=== PATIENT | female | born 1950 | race Caucasian/White ===

== ENCOUNTER 2017-06-05 04:53 | Emergency (ER) | payer MEDICARE, OTHER ==
[2017-06-05] MEDS ORDERED: Ketorolac 30 MG/ML SDV IVPUSH ONE (05:36)
[2017-06-05 06:25] LABS: CHLORIDE,CL 109 mmol/L (98-110); SODIUM,NA 143 mmol/L (136-146)
--- NOTE | 2017-06-05 06:38 | EDM.PDOC ---
ED HPI GENERAL MEDICAL PROBLEM - General Chief Complaint: General Stated Complaint: PAIN IN PELVIS Time Seen by Provider: 06/05/17 06:30 Source of Information: Reports: Patient - History of Present Illness INITIAL COMMENTS - FREE TEXT/NARRATIVE: HISTORY AND PHYSICAL: History of present illness: [ Patient presents with complaint of right flank to low back pain she rates 7 out of 10 radiating to the vaginal floor, she has a history of congestive pelvis syndrome, she states pain is different today. She has had some right lower extremity numbness over the last week along with over the last 24 hours developing the low back/flank pain radiating to the vagina. No fever nausea vomiting chills sweats no chest pain shortness breath headache dizziness or palpitation no bowel or urine symptoms No footdrop saddle anesthesia ] Review of systems: As per history of present illness and below otherwise all systems reviewed and negative. Past medical history: As per history of present illness and as reviewed below otherwise noncontributory. Surgical history: As per history of present illness and as reviewed below otherwise noncontributory. Social history: No reported history of drug or alcohol abuse. Family history: As per history of present illness and as reviewed below otherwise noncontributory. Physical exam: HEENT: Atraumatic, normocephalic, pupils reactive, negative for conjunctival pallor or scleral icterus, mucous membranes moist, throat clear, neck supple, nontender, trachea midline. Lungs: Clear to auscultation, breath sounds equal bilaterally, chest nontender. Heart: S1S2, regular, negative for clicks, rubs, or JVD. Abdomen: Soft, nondistended, nontender. Negative for masses or hepatosplenomegaly. Negative for costovertebral tenderness. Pelvis: Stable nontender. 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: Deferred. Rectal: Deferred. Extremities: Atraumatic, negative for cords or calf pain. Neurovascular unremarkable. Neuro: Awake, alert, oriented. Cranial nerves II through XII unremarkable. Cerebellum unremarkable. Motor and sensory unremarkable throughout. Exam nonfocal. No footdrop or saddle anesthesia Diagnostics: []Lab as below CT abdomen pelvis with and without contrast Therapeutics: []Liter normal saline bolus Zofran 8 mg IV Toradol 30 mg IV--some improvement with Toradol to 3 out of 10 Patient will be endorsed to Dr. Fallon to follow lab and CT and redirect/ disposition Impression: []Flank and back pain radiating to the pelvic floor History of congestive pelvis syndrome Definitive disposition and diagnosis as appropriate pending reevaluation and review of above. - Related Data Allergies Allergy/AdvReac Type Severity Reaction Status Date / Time levofloxacin [From Levaquin] Allergy unknown Verified 06/05/17 05:13 Home Meds: Home Meds Metoprolol Succinate [Toprol XL] 25 mg PO DAILY 07/25/16 [History] Erythromycin Base [Erythromycin 0.5% Ophth Oint] 1 drop TOP DAILY 08/13/16 [ History] Past Medical History HEENT History: Reports: Impaired Vision Other HEENT History: glasses Cardiovascular History: Reports: Other (See Below) Other Cardiovascular History: PSVT Gastrointestinal History: Reports: Chronic Constipation 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 History: Reports: Other (See Below) Other 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 History: Pelvis 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: - Infectious Disease History Infectious Disease History: Reports: Chicken Pox, Measles, Mumps - Past Surgical History Cardiovascular Surgical History: Reports: Other (See Below) Social & Family History - Family History Family Medical History: Noncontributory HEENT: Reports: None Cardiac: Reports: High Cholesterol Respiratory: Reports: None GI: Reports: None : Reports: None OBGYN: Reports: None Musculoskeletal: Reports: None Neurological: Reports: None Psychiatric: Reports: None Endocrine/Metabolic: Reports: Diabetes, type II Hematologic: Reports: None Immunologic: Reports: None Dermatologic: Reports: None Oncologic: Reports: None - Tobacco Use Smoking Status *Q: Never Smoker Second Hand Smoke Exposure: No - Caffeine Use Caffeine Use: Reports: None - Alcohol Use Days Per Week of Alcohol Use: 0 - Recreational Drug Use Recreational Drug Use: No ED ROS GENERAL - Review of Systems Review Of Systems: ROS reveals no pertinent complaints other than HPI. ED EXAM, GENERAL - Physical Exam Exam: See Below Course - Vital Signs Last Recorded V/S: Last Vital Signs Temp 98.4 F 06/05/17 05:23 Pulse 83 06/05/17 05:23 Resp 18 06/05/17 05:23 BP 106/70 06/05/17 05:23 Pulse Ox 100 06/05/17 05:23 - Orders/Labs/Meds Orders: Active Orders 24 hr Category Date Time Status Abdomen Pelvis w wo Cont [CT] Stat Exams 06/05/17 06:21 Ordered Labs: Laboratory Tests 06/05/17 06/05/17 06/05/17 Range/Units 05:30 05:30 05:30 WBC 5.60 (4.0-11.0) K/uL RBC 4.09 L (4.30-5.90) M/uL Hgb 12.6 (12.0-16.0) g/dL Hct 37.9 (36.0-46.0) % MCV 92.7 (80.0-98.0) fL MCH 30.8 (27.0-32.0) pg MCHC 33.2 (31.0-37.0) g/dL RDW Std Deviation 44.2 (28.0-62.0) fl RDW Coeff of Arianne 13 (11.0-15.0) % Plt Count 185 (150-400) K/uL MPV 10.10 (7.40-12.00) fL Neut % (Auto) 63.6 (48.0-80.0) % Lymph % (Auto) 28.8 (16.0-40.0) % King % (Auto) 6.3 (0.0-15.0) % Eos % (Auto) 0.9 (0.0-7.0) % Baso % (Auto) 0.4 (0.0-1.5) % Neut # (Auto) 3.6 (1.4-5.7) K/uL Lymph # (Auto) 1.6 (0.6-2.4) K/uL King # (Auto) 0.4 (0.0-0.8) K/uL Eos # (Auto) 0.1 (0.0-0.7) K/uL Baso # (Auto) 0.0 (0.0-0.1) K/uL Nucleated RBC % 0.0 /100WBC Nucleated RBCs # 0 K/uL Sodium 143 (136-146) mmol/L Potassium 3.8 (3.5-5.1) mmol/L Chloride 109 (98-110) mmol/L Carbon Dioxide 26 (21-31) mmol/L BUN 19 (6.0-23.0) mg/dL Creatinine 0.8 (0.6-1.5) mg/dL Est Cr Clr Drug Dosing TNP Estimated GFR (MDRD) > 60.0 ml/min Glucose 89 (60-110) mg/dL Calcium 9.4 (8.8-10.8) mg/dL Total Bilirubin 0.8 (0.1-1.5) mg/dL AST 17 (5-40) IU/L ALT 19 (8-54) IU/L Alkaline Phosphatase 70 (40-150) Total Protein 6.5 (6.0-8.0) g/dL Albumin 3.9 (3.4-4.8) g/dL Globulin 2.6 (2.0-3.5) g/dL Albumin/Globulin Ratio 1.5 (1.3-2.8) Urine Color YELLOW Urine Appearance CLEAR Urine pH 6.5 (5.0-8.0) Ur Specific Winifred 1.010 (1.001-1.035) Urine Protein NEGATIVE (NEGATIVE) mg/dL Urine Glucose (UA) NEGATIVE (NEGATIVE) mg/dL Urine Ketones NEGATIVE (NEGATIVE) mg/dL Urine Occult Blood NEGATIVE (NEGATIVE) Urine Nitrite NEGATIVE (NEGATIVE) Urine Bilirubin NEGATIVE (NEGATIVE) Urine Urobilinogen 0.2 (<2.0) EU/dL Ur Leukocyte Esterase NEGATIVE (NEGATIVE) Urine RBC NONE SEEN (0-2/HPF) Urine WBC NONE SEEN (0-5/HPF) Ur Epithelial Cells NOT SEEN (NONE-FEW) Urine Bacteria RARE (NEGATIVE) Meds: Medications Discontinued Medications Generic Name Dose Route Start Last Admin Trade Name Freq PRN Reason Stop Dose Admin Ketorolac Tromethamine 30 mg 06/05/17 05:36 06/05/17 05:55 Toradol IVPUSH 06/05/17 05:37 30 mg ONETIME ONE Administration Departure - Departure Time of Disposition: 06:38 Disposition: Still A Patient 30 Condition: Good Clinical Impression: Flank pain - Discharge Information Referrals: Sim Whitlock MD [Primary Care Provider] - - My Orders Last 24 Hours: My Active Orders 06/05/17 06:21 Abdomen Pelvis w wo Cont [CT] Stat - Assessment/Plan Last 24 Hours: My Active Orders 06/05/17 06:21 Abdomen Pelvis w wo Cont [CT] Stat
[2017-06-05] MEDS ORDERED: Iopamidol 755 MG/ML 500 ML Multipack Bottle IVPUSH STA (07:22)
[2017-06-05 08:47] VITALS: BP 106/62
--- NOTE | 2017-06-05 17:19 | CT ---
EXAM DATE: 06/05/17 PATIENT'S AGE: 66 Patient: PRISCILLA PARK Facility: [place], [place] Site . Site : 1950 Study: CT Abdomen/Pelvis W/ and W/O Cont [id number] 7:18:56 AM Ordering Physician: Iza Colvin Final Report: INDICATION: Bilateral lower abdomen and pelvic pain. TECHNIQUE: CT abdomen and pelvis acquired without and with 100 cc Isovue 370 IV contrast. COMPARISON: May 28, 2014. FINDINGS: LOWER CHEST: Unremarkable. LIVER: Stable 1.3 cm circumscribed low attenuation lesion in the superior right lobe on image 22. Remainder of the liver is unremarkable. GALLBLADDER AND BILE DUCTS: Status post cholecystectomy. No biliary dilatation. PANCREAS: Unremarkable. No mass or inflammation. SPLEEN: Unremarkable. Normal in size. No masses. ADRENAL GLANDS: Unremarkable. No nodules. KIDNEYS: Single small nonobstructing stone is in the right kidney. No hydronephrosis. Kidneys are otherwise normal. GI TRACT: There is mild stool retention throughout the colon. Normal in caliber. No sign of mass or inflammation. Normal appendix. VASCULATURE: Unremarkable. LYMPH NODES: No lymphadenopathy. OMENTUM/PERITONEUM/ABDOMINAL WALL: Unremarkable. No sign of mass or infiltration. No free air or significant free fluid. PELVIS: Unremarkable. BONES: Unremarkable for age. IMPRESSION: Mild constipation pattern. No other acute or specific finding to explain lower abdomen or pelvic pain. No significant changes from the prior exam. Dictated by Teddy Elizondo MD @ 06/05/2017 7:41:52 AM Dictated by: Teddy Elizondo MD @ 06/05/2017 07:42:00 (Electronic Signature) Report Signed by Proxy. [facility] SHOREChuy
== END 2017-06-05 08:16 | disposition still patient (30) ==
LOC: MW.ED 04:53
DX: R10.9 Unspecified abdominal pain (principal); K59.00 Constipation, unspecified; K76.9 Liver disease, unspecified; Z88.1 Allergy status to other antibiotic agents
CPT/HCPCS: 74178; 80053; 81001; 85025; 96374; 99284; J1885; Q9967

== ENCOUNTER 2017-08-17 14:11 | Emergency (ER) | payer MEDICARE, OTHER ==
--- NOTE | 2017-08-17 15:01 | EDM.PDOC ---
ED HPI GENERAL MEDICAL PROBLEM - General Chief Complaint: Upper Extremity Injury/Pain Stated Complaint: FALL/ L HAND PAIN/ HIT HEAD Time Seen by Provider: 08/17/17 15:01 Source of Information: Reports: Patient - History of Present Illness INITIAL COMMENTS - FREE TEXT/NARRATIVE: HISTORY AND PHYSICAL: History of present illness: [Patient slipped and fell striking her head on concrete denies loss of consciousness, there is some pooled blood secondary to a laceration just above her left brow line 2 cm linear lack. She complains of 8 out of 10 left wrist pain, wrist is swollen no open lesion No fever nausea vomiting chills sweats no chest pain shortness breath dizziness or palpitation no bowel or urine symptoms of headache ] Review of systems: As per history of present illness and below otherwise all systems reviewed and negative. Past medical history: As per history of present illness and as reviewed below otherwise noncontributory. Surgical history: As per history of present illness and as reviewed below otherwise noncontributory. Social history: No reported history of drug or alcohol abuse. Family history: As per history of present illness and as reviewed below otherwise noncontributory. Physical exam: HEENT: Atraumatic, normocephalic, pupils reactive, negative for conjunctival pallor or scleral icterus, mucous membranes moist, throat clear, neck supple, nontender, trachea midline. Lungs: Clear to auscultation, breath sounds equal bilaterally, chest nontender. Heart: S1S2, regular, negative for clicks, rubs, or JVD. Abdomen: Soft, nondistended, nontender. Negative for masses or hepatosplenomegaly. Negative for costovertebral tenderness. Pelvis: Stable nontender. 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: Deferred. Rectal: Deferred. Extremities: Atraumatic, negative for cords or calf pain. Neurovascular unremarkable. Left upper extremity shoulder and elbow on affected wrist moderate swelling, entire limb neurovascularly intact Neuro: Awake, alert, oriented. Cranial nerves II through XII unremarkable. Cerebellum unremarkable. Motor and sensory unremarkable throughout. Exam nonfocal. Diagnostics: [Head CT no contrast Left wrist complete ] Therapeutics: [Patient declines pain medicine Lidocaine Tetanus status is updated Wound cleansed and explored Standard wound care instructions #3 5-0 Prolene sutures interrupted no complication no complaint ] Standard wound care instructions Sutures out in 5-7 days Follow-up with orthopedist call to arrange for appropriate follow-up tomorrow Augmentin 500 per 125 #20 no refill Tylenol 3 #30 Rest ice Splint applied by nursing Impression: Distal radial fracture on the left Ulnar styloid fracture on left [Left wrist pain Contusion left brow 2 cm linear laceration left brow] She chipped the lateral border of her left central incisor Fight bite lesion no sutures required Definitive disposition and diagnosis as appropriate pending reevaluation and review of above. Left Wrist Pain Score (Numeric/FACES): 5 - Related Data Allergies Allergy/AdvReac Type Severity Reaction Status Date / Time levofloxacin [From Levaquin] Allergy unknown Verified 06/05/17 05:13 Home Meds: Home Meds Metoprolol Succinate [Toprol XL] 25 mg PO DAILY 07/25/16 [History] Erythromycin Base [Erythromycin 0.5% Ophth Oint] 1 drop TOP DAILY 08/13/16 [ History] Past Medical History HEENT History: Reports: Impaired Vision Other HEENT History: glasses Cardiovascular History: Reports: Other (See Below) Other Cardiovascular History: PSVT Gastrointestinal History: Reports: Chronic Constipation 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 History: Reports: Other (See Below) 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: - Infectious Disease History Infectious Disease History: Reports: Chicken Pox, Measles, Mumps - Past Surgical History Cardiovascular Surgical History: Reports: Other (See Below) Social & Family History - Family History Family Medical History: Noncontributory HEENT: Reports: None Cardiac: Reports: High Cholesterol Respiratory: Reports: None GI: Reports: None : Reports: None OBGYN: Reports: None Musculoskeletal: Reports: None Neurological: Reports: None Psychiatric: Reports: None Endocrine/Metabolic: Reports: Diabetes, type II Hematologic: Reports: None Immunologic: Reports: None Dermatologic: Reports: None Oncologic: Reports: None - Tobacco Use Smoking Status *Q: Never Smoker Second Hand Smoke Exposure: No - Caffeine Use Caffeine Use: Reports: None - Alcohol Use Days Per Week of Alcohol Use: 0 - Recreational Drug Use Recreational Drug Use: No Review of Systems - Review of Systems Review Of Systems: See Below ED EXAM, GENERAL - Physical Exam Exam: See Below Course - Vital Signs Last Recorded V/S: Last Vital Signs Temp 98.0 F 08/17/17 14:55 Pulse 83 08/17/17 14:55 Resp 18 08/17/17 14:55 BP 125/66 08/17/17 14:55 Pulse Ox 99 08/17/17 14:55 - Orders/Labs/Meds Orders: Active Orders 24 hr Category Date Time Status Vaccines to be Administered [RC] PER UNIT ROUTINE Care 08/17/17 15:05 Active Acetaminophen/Codeine [Tylenol with Codeine No.3 300MG/ Med 08/17/17 16:28 Stat 30MG] 2 tab PO NOW STA Meds: Medications Discontinued Medications Generic Name Dose Route Start Last Admin Trade Name Montez PRN Reason Stop Dose Admin Diphtheria/Tetanus/Acell Pertussis 0.5 ml 08/17/17 15:05 Adacel IM 08/17/17 15:06 .ONCE ONE Lidocaine HCl 20 ml 08/17/17 15:05 Xylocaine 1% INJECT 08/17/17 15:06 ONETIME ONE Departure - Departure Time of Disposition: 16:25 Disposition: Home, Self-Care 01 Condition: Good Clinical Impression: Laceration, Distal radius fracture, left, Fracture of ulnar styloid, Contusion - Discharge Information Referrals: Sim Whitlock MD [Primary Care Provider] - Forms: ED Department Discharge Additional Instructions: Medication as prescribed Return if symptoms persist or worsen despite treatment Follow-up with orthopedist, call number provided below to arrange appropriate follow-up Standard wound care instructions Keep wound clean and dry for 48 hours Sutures out in 5 days may be done through the ER or with your primary care [facility] [address], [address] [place] [address] my orthopedic The following information is given to patients seen in the emergency department who are being discharged to home. This information is to outline your options for follow-up care. We provide all patients seen in our emergency department with a follow-up referral. The need for follow-up, as well as the timing and circumstances, are variable depending upon the specifics of your emergency department visit. If you don't have a primary care physician on staff, we will provide you with a referral. We always advise you to contact your personal physician following an emergency department visit to inform them of the circumstance of the visit and for follow-up with them and/or the need for any referrals to a consulting specialist. The emergency department will also refer you to a specialist when appropriate. This referral assures that you have the opportunity for follow-up care with a specialist. All of these measure are taken in an effort to provide you with optimal care, which includes your follow-up. Under all circumstances we always encourage you to contact your private physician who remains a resource for coordinating your care. When calling for follow-up care, please make the office aware that this follow-up is from your recent emergency room visit. If for any reason you are refused follow-up, please contact the [facility] emergency department at and asked to speak to the emergency department charge nurse. - My Orders Last 24 Hours: My Active Orders 08/17/17 15:05 Vaccines to be Administered [RC] PER UNIT ROUTINE 08/17/17 16:28 Acetaminophen/Codeine [Tylenol with Codeine No.3 300MG/30MG] 2 tab PO NOW STA - Assessment/Plan Last 24 Hours: My Active Orders 08/17/17 15:05 Vaccines to be Administered [RC] PER UNIT ROUTINE 08/17/17 16:28 Acetaminophen/Codeine [Tylenol with Codeine No.3 300MG/30MG] 2 tab PO NOW STA
[2017-08-17] MEDS ORDERED: Lidocaine 1% 20 ML MDV INJECT ONE (15:05)
[2017-08-17] MEDS ORDERED: Diphtheria,Pertussis(Acell),Tetanus Vaccine 0.5 ML Syringe IM ONE (15:05)
--- NOTE | 2017-08-17 15:53 | CR ---
EXAMINATION: Left wrist HISTORY: Pain COMPARISON: None TECHNIQUE: 3 views FINDINGS/IMPRESSION: Mildly angulated and impacted distal radial metaphysis fracture identified with an intra-articular component along the ulnar aspect. There is also a minimally displaced ulnar styloi d fracture. Remaining osseous structures appear preserved.
--- NOTE | 2017-08-17 15:56 | CT ---
EXAMINATION: Non contrast CT head. Coronal and sagittal reformats. HISTORY: Pain FINDINGS: No evidence of intra or extra axial hemorrhage, mass, midline shift, hydrocephalus or edema. Minimal generalized atrophy. No hypoattenuation changes in the major vascular territories to suggest acute infarct. No abnormal intracranial calcifications are detected. No evidence of substantial vascular calcificat ions. Paranasal sinuses and mastoid air cells are well aerated without substantial findings. Orbits and gl obes are symmetric. Pituitary fossa appears unremarkable. Calvarium is intact. No evidence of skull fracture. IMPRESSION: No acute intracranial findings.
[2017-08-17] MEDS ORDERED: Acetaminophen/Codeine 300-30 MG Tab PO STA (16:28)
[2017-08-17 17:20] VITALS: BP 124/82
== END 2017-08-17 17:16 | disposition home or self-care (01) ==
LOC: MW.ED 14:11
DX: S52.502A Unspecified fracture of the lower end of left radius, initial encounter for closed fracture (principal); S52.612A Displaced fracture of left ulna styloid process, initial encounter for closed fracture; S01.81XA Laceration without foreign body of other part of head, initial encounter; Z88.1 Allergy status to other antibiotic agents; Z79.899 Other long term (current) drug therapy; Z23 Encounter for immunization; W01.118A Fall on same level from slipping, tripping and stumbling with subsequent striking against other sharp object, initial encounter
CPT/HCPCS: 12011; 70450; 73110; 90471; 90715; 99284; A9270; 99283

== ENCOUNTER 2017-08-22 14:51 | Emergency (ER) | payer MEDICARE, OTHER ==
[2017-08-22 15:01] VITALS: BP 116/57
== END 2017-08-22 15:07 | disposition left against medical advice (07) ==
LOC: MW.ED 14:51
DX: Z53.21 Procedure and treatment not carried out due to patient leaving prior to being seen by health care provider (principal)

== ENCOUNTER 2017-12-27 08:06 | Inpatient (IN) | payer MEDICARE, OTHER ==
--- NOTE | 2017-12-27 08:17 | EDM.PDOC ---
ED HPI GENERAL MEDICAL PROBLEM - General Stated Complaint: ABD PAIN Time Seen by Provider: 12/27/17 08:08 Source of Information: Reports: Patient History Limitations: Reports: No Limitations - History of Present Illness INITIAL COMMENTS - FREE TEXT/NARRATIVE: History of present illness: []Patient started having lower abdominal pain last night that she described as crampy. She denies any fevers, chills, vomiting or diarrhea but feels nauseous. She has no urinary complaints and states that her bowels are moving but they are thin in shape, no diarrhea. She states she is followed up with Dr. Whitlock for the same complaint and he recommended a colonoscopy but she has not heard back as of yet from scheduling. Review of systems: As per history of present illness and below otherwise all systems reviewed and negative. Past medical history: As per history of present illness and as reviewed below otherwise noncontributory. Surgical history: As per history of present illness and as reviewed below otherwise noncontributory. Social history: No reported history of drug or alcohol abuse. Family history: As per history of present illness and as reviewed below otherwise noncontributory. Physical exam: General: Well developed, well nourished in NAD HEENT: Atraumatic, normocephalic, pupils reactive, negative for conjunctival pallor or scleral icterus, mucous membranes moist, throat clear, neck supple, nontender, trachea midline. Lungs: Clear to auscultation, breath sounds equal bilaterally, chest nontender. Heart: S1S2, regular, negative for clicks, rubs, or JVD. Abdomen: Soft, nondistended, tenderness in lower abdomens worse in the right lower pelvis she has no rebound or guarding. Negative for masses or hepatosplenomegaly. Negative for costovertebral tenderness. Pelvis: Stable nontender. 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: Deferred. Rectal: Deferred. Extremities: Atraumatic, negative for cords or calf pain. Neurovascular unremarkable. Neuro: Awake, alert, oriented. Cranial nerves II through XII unremarkable. Cerebellum unremarkable. Motor and sensory unremarkable throughout. Exam nonfocal. Diagnostics: []CBC, chemistry and UA are negative, CT abdomen shows a closed loop bowel obstruction with free fluid in the pelvis Therapeutics: []Patient was given IV fluids she declined pain and nausea meds Impression: []Closed loop bowel obstruction Plan: []Derik was consulted patient going to the OR Definitive disposition and diagnosis as appropriate pending reevaluation and review of above. mid abd pain Pain Score (Numeric/FACES): 3 - Related Data Allergies Allergy/AdvReac Type Severity Reaction Status Date / Time levofloxacin [From Levaquin] AdvReac Mild unknown Verified 12/27/17 08:14 Home Meds: Home Meds Ascorbic Acid [Vitamin C] 1,000 mg PO DAILY 12/27/17 [History] Aspirin 81 mg PO DAILY 12/27/17 [History] Calcium Carbonate [Calcium] 500 mg PO DAILY 12/27/17 [History] Cholecalciferol (Vitamin D3) [Vitamin D3] 1,000 unit PO BID 12/27/17 [History] Erythromycin Base [Erythromycin 0.5% Ophth Oint] 1 applic OP BEDTIME 12/27/17 [ History] Fish Oil/DHA/EPA [Fish Oil 1,200 MG] 1 each PO DAILY 12/27/17 [History] Ketamine HCl [Ketamine Hydrochloride] 12/27/17 [History] Metoprolol Succinate [Toprol XL] 25 mg PO DAILY 12/27/17 [History] Multivitamin [Multivitamins] 1 each PO DAILY 12/27/17 [History] Naltrexone HCl [Revia] 1.5 mg PO 12/27/17 [History] Ubidecarenone [Coq-10] 100 mg PO DAILY 12/27/17 [History] Past Medical History HEENT History: Reports: Impaired Vision Other HEENT History: glasses Cardiovascular History: Reports: Other (See Below) Other Cardiovascular History: PSVT Gastrointestinal History: Reports: Chronic Constipation 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 History: Reports: Other (See Below) Other 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 History: Pelvis Congestion Syndrome [employer] History: Reports: Musculoskeletal History: Reports: Osteoporosis - Infectious Disease History Infectious Disease History: Reports: Chicken Pox, Measles, Mumps - Past Surgical History Cardiovascular Surgical History: Reports: Other (See Below) Social & Family History - Family History Family Medical History: Noncontributory HEENT: Reports: None Cardiac: Reports: High Cholesterol Respiratory: Reports: None GI: Reports: None : Reports: None OBGYN: Reports: None Musculoskeletal: Reports: None Neurological: Reports: None Psychiatric: Reports: None Endocrine/Metabolic: Reports: Diabetes, type II Hematologic: Reports: None Immunologic: Reports: None Dermatologic: Reports: None Oncologic: Reports: None - Caffeine Use Caffeine Use: Reports: None ED ROS GENERAL - Review of Systems Review Of Systems: See Below (See history of present illness) ED EXAM, GI/ABD - Physical Exam Exam: See Below (See history of present illness) Course - Vital Signs Last Recorded V/S: Last Vital Signs Temp 98.2 F 12/27/17 12:28 Pulse 102 H 12/27/17 12:28 Resp 20 12/27/17 12:28 BP 133/76 12/27/17 12:28 Pulse Ox 97 12/27/17 12:28 - Orders/Labs/Meds Orders: Active Orders 24 hr Category Date Time Status UA W/MICROSCOPIC [URIN] Stat Lab 12/27/17 10:00 Ordered Sodium Chloride 0.9% [Saline Flush] Med 12/27/17 08:25 Active 10 ml FLUSH ASDIRECTED PRN Sodium Chloride 0.9% [Saline Flush] Med 12/27/17 08:25 Active 2.5 ml FLUSH ASDIRECTED PRN Saline Lock Insert [OM.PC] Stat Oth 12/27/17 08:25 Ordered Medication Orders Cefoxitin Sodium 1 gm/ Premix 50 mls @ 100 mls/hr IV ONETIME CK Lactated Ringer's (Ringers, Lactated) 1,000 mls @ 125 mls/hr IV ASDIRECTED CK Sodium Chloride (Saline Flush) 10 ml FLUSH ASDIRECTED PRN PRN Reason: Keep Vein Open Sodium Chloride (Saline Flush) 2.5 ml FLUSH ASDIRECTED PRN PRN Reason: Keep Vein Open Labs: Laboratory Tests 12/27/17 12/27/17 12/27/17 Range/Units 08:46 08:46 10:00 WBC 10.77 (4.0-11.0) K/uL RBC 4.31 (4.30-5.90) M/uL Hgb 13.2 (12.0-16.0) g/dL Hct 39.9 (36.0-46.0) % MCV 92.6 (80.0-98.0) fL MCH 30.6 (27.0-32.0) pg MCHC 33.1 (31.0-37.0) g/dL RDW Std Deviation 42.2 (28.0-62.0) fl RDW Coeff of Arianne 12 (11.0-15.0) % Plt Count 204 (150-400) K/uL MPV 10.10 (7.40-12.00) fL Neut % (Auto) 87.1 H (48.0-80.0) % Lymph % (Auto) 9.4 L (16.0-40.0) % Will % (Auto) 3.3 (0.0-15.0) % Eos % (Auto) 0.1 (0.0-7.0) % Baso % (Auto) 0.1 (0.0-1.5) % Neut # (Auto) 9.4 H (1.4-5.7) K/uL Lymph # (Auto) 1.0 (0.6-2.4) K/uL Will # (Auto) 0.4 (0.0-0.8) K/uL Eos # (Auto) 0.0 (0.0-0.7) K/uL Baso # (Auto) 0.0 (0.0-0.1) K/uL Nucleated RBC % 0.0 /100WBC Nucleated RBCs # 0 K/uL Lactate (0.20-2.00) mmol/L Sodium 143 (136-145) mmol/L Potassium 4.2 (3.5-5.1) mmol/L Chloride 107 (98-107) mmol/L Carbon Dioxide 28.0 (21.0-32.0) mmol/L BUN 18 (7.0-18.0) mg/dL Creatinine 0.9 (0.6-1.0) mg/dL Est Cr Clr Drug Dosing 52.12 mL/min Estimated GFR (MDRD) > 60.0 ml/min Glucose 119 H (74-106) mg/dL Calcium 9.3 (8.5-10.1) mg/dL Total Bilirubin 0.8 (0.2-1.0) mg/dL AST 23 (15-37) IU/L ALT 29 (14-63) IU/L Alkaline Phosphatase 76 (46-116) U/L Total Protein 6.7 (6.4-8.2) g/dL Albumin 3.8 (3.4-5.0) g/dL Globulin 2.9 (2.0-3.5) g/dL Albumin/Globulin Ratio 1.3 (1.3-2.8) Lipase 230 (73-393) U/L Urine Color YELLOW Urine Appearance SLT CLOUDY Urine pH 7.0 (5.0-8.0) Ur Specific [place] 1.015 (1.001-1.035) Urine Protein NEGATIVE (NEGATIVE) mg/dL Urine Glucose (UA) NEGATIVE (NEGATIVE) mg/dL Urine Ketones TRACE H (NEGATIVE) mg/dL Urine Occult Blood NEGATIVE (NEGATIVE) Urine Nitrite NEGATIVE (NEGATIVE) Urine Bilirubin NEGATIVE (NEGATIVE) Urine Urobilinogen 0.2 (<2.0) EU/dL Ur Leukocyte Esterase NEGATIVE (NEGATIVE) Urine RBC 0-1 (0-2/HPF) Urine WBC 0-2 (0-5/HPF) Ur Epithelial Cells FEW (NONE-FEW) Amorphous Sediment MANY (NEGATIVE) Urine Bacteria FEW (NEGATIVE) 12/27/17 Range/Units 12:12 WBC (4.0-11.0) K/uL RBC (4.30-5.90) M/uL Hgb (12.0-16.0) g/dL Hct (36.0-46.0) % MCV (80.0-98.0) fL MCH (27.0-32.0) pg MCHC (31.0-37.0) g/dL RDW Std Deviation (28.0-62.0) fl RDW Coeff of Arianne (11.0-15.0) % Plt Count (150-400) K/uL MPV (7.40-12.00) fL Neut % (Auto) (48.0-80.0) % Lymph % (Auto) (16.0-40.0) % Will % (Auto) (0.0-15.0) % Eos % (Auto) (0.0-7.0) % Baso % (Auto) (0.0-1.5) % Neut # (Auto) (1.4-5.7) K/uL Lymph # (Auto) (0.6-2.4) K/uL Will # (Auto) (0.0-0.8) K/uL Eos # (Auto) (0.0-0.7) K/uL Baso # (Auto) (0.0-0.1) K/uL Nucleated RBC % /100WBC Nucleated RBCs # K/uL Lactate 0.7 (0.20-2.00) mmol/L Sodium (136-145) mmol/L Potassium (3.5-5.1) mmol/L Chloride (98-107) mmol/L Carbon Dioxide (21.0-32.0) mmol/L BUN (7.0-18.0) mg/dL Creatinine (0.6-1.0) mg/dL Est Cr Clr Drug Dosing mL/min Estimated GFR (MDRD) ml/min Glucose (74-106) mg/dL Calcium (8.5-10.1) mg/dL Total Bilirubin (0.2-1.0) mg/dL AST (15-37) IU/L ALT (14-63) IU/L Alkaline Phosphatase (46-116) U/L Total Protein (6.4-8.2) g/dL Albumin (3.4-5.0) g/dL Globulin (2.0-3.5) g/dL Albumin/Globulin Ratio (1.3-2.8) Lipase (73-393) U/L Urine Color Urine Appearance Urine pH (5.0-8.0) Ur Specific [place] (1.001-1.035) Urine Protein (NEGATIVE) mg/dL Urine Glucose (UA) (NEGATIVE) mg/dL Urine Ketones (NEGATIVE) mg/dL Urine Occult Blood (NEGATIVE) Urine Nitrite (NEGATIVE) Urine Bilirubin (NEGATIVE) Urine Urobilinogen (<2.0) EU/dL Ur Leukocyte Esterase (NEGATIVE) Urine RBC (0-2/HPF) Urine WBC (0-5/HPF) Ur Epithelial Cells (NONE-FEW) Amorphous Sediment (NEGATIVE) Urine Bacteria (NEGATIVE) Meds: Medications Generic Name Dose Route Start Last Admin Trade Name Freq PRN Reason Stop Dose Admin Cefoxitin Sodium 1 gm/ Premix 50 mls @ 100 mls/hr 12/27/17 12:45 IV ONETIME CK Lactated Ringer's 1,000 mls @ 125 mls/hr 12/27/17 12:45 Ringers, Lactated IV ASDIRECTED CK Sodium Chloride 10 ml 12/27/17 08:25 Saline Flush FLUSH ASDIRECTED PRN Keep Vein Open Sodium Chloride 2.5 ml 12/27/17 08:25 Saline Flush FLUSH ASDIRECTED PRN Keep Vein Open Discontinued Medications Generic Name Dose Route Start Last Admin Trade Name Montez PRN Reason Stop Dose Admin Bupivacaine HCl Confirm 12/27/17 12:40 Marcaine 0.5% Administered 12/27/17 12:41 Dose 120 ml .ROUTE .STK-MED ONE Cefazolin Sodium Confirm 12/27/17 12:40 Ancef Administered 12/27/17 12:41 Dose 1 gm .ROUTE .STK-MED ONE Ephedrine Sulfate Confirm 12/27/17 12:57 Ephedrine Sulfate Administered 12/27/17 12:58 Dose 50 mg .ROUTE .STK-MED ONE Fentanyl Confirm 12/27/17 12:57 Sublimaze Administered 12/27/17 12:58 Dose 250 mcg .ROUTE .STK-MED ONE Hyoscyamine 0.125 mg 12/27/17 09:55 12/27/17 10:03 Hyomax-Sl SL 12/27/17 09:56 0.125 mg ONETIME ONE Administration Sodium Chloride 1,000 mls @ 999 mls/hr 12/27/17 08:25 12/27/17 08:52 Normal Saline IV 12/27/17 09:25 999 mls/hr .Bolus ONE Administration Sodium Chloride Confirm 12/27/17 12:57 Normal Saline Administered 12/27/17 12:58 Dose 20 mls @ as directed .ROUTE .STK-MED ONE Iopamidol 100 ml 12/27/17 11:17 12/27/17 11:25 Isovue Multipack-370 (76%) IVPUSH 12/27/17 11:18 100 ml ONETIME STA Administration Lidocaine Confirm 12/27/17 12:57 Xylocaine-Mpf 2% Administered 12/27/17 12:58 Dose 5 ml .ROUTE .STK-MED ONE Midazolam HCl Confirm 12/27/17 12:57 Versed 1 Mg/Ml Administered 12/27/17 12:58 Dose 2 mg .ROUTE .STK-MED ONE Ondansetron HCl Confirm 12/27/17 12:57 Zofran Administered 12/27/17 12:58 Dose 4 mg .ROUTE .STK-MED ONE Propofol Confirm 12/27/17 12:57 Diprivan 20 Ml Administered 12/27/17 12:58 Dose 200 mg .ROUTE .STK-MED ONE Rocuronium Webster Confirm 12/27/17 12:57 Zemuron Administered 12/27/17 12:58 Dose 100 mg .ROUTE .STK-MED ONE Succinylcholine Chloride Confirm 12/27/17 12:57 Quelicin Administered 12/27/17 12:58 Dose 200 mg .ROUTE .STK-MED ONE Departure - Departure Time of Disposition: 13:21 Disposition: Admitted As Inpatient 66 Condition: Fair Clinical Impression: Small bowel obstruction with strangulation or infarction - Discharge Information - My Orders Last 24 Hours: My Active Orders 12/27/17 08:25 Sodium Chloride 0.9% [Saline Flush] 10 ml FLUSH ASDIRECTED PRN Sodium Chloride 0.9% [Saline Flush] 2.5 ml FLUSH ASDIRECTED PRN Saline Lock Insert [OM.PC] Stat 12/27/17 10:00 UA W/MICROSCOPIC [URIN] Stat - Assessment/Plan Last 24 Hours: My Active Orders 12/27/17 08:25 Sodium Chloride 0.9% [Saline Flush] 10 ml FLUSH ASDIRECTED PRN Sodium Chloride 0.9% [Saline Flush] 2.5 ml FLUSH ASDIRECTED PRN Saline Lock Insert [OM.PC] Stat 12/27/17 10:00 UA W/MICROSCOPIC [URIN] Stat
[2017-12-27] MEDS ORDERED: Sodium Chloride 0.9% 2.5 ML Syringe FLUSH PRN (08:25)
[2017-12-27] MEDS ORDERED: Sodium Chloride 0.9% 10 ML Syringe FLUSH PRN (08:25)
[2017-12-27] MEDS ORDERED: Sodium Chloride 0.9% 1,000 ML IV ONE (08:25)
[2017-12-27 09:14] LABS: CHLORIDE,CL 107 mmol/L (98-107); SODIUM,NA 143 mmol/L (136-145)
[2017-12-27] MEDS ORDERED: Hyoscyamine 0.125 MG Tab.SL SL ONE (09:55)
[2017-12-27] MEDS ORDERED: Iopamidol 755 MG/ML 500 ML Multipack Bottle IVPUSH STA (11:17)
--- NOTE | 2017-12-27 11:50 | CT ---
CT of the abdomen and pelvis with contrast. HISTORY: Pain TECHNIQUE: Axial CT images were obtained of the abdomen and pelvis following administration of 100 mL of Isovue-370 in the right hand without complication. Coronal and sagittal reconstructions obtained. FINDINGS: There is a 1 cm nodule and an adjacent 1.1 x 0.6 cm nodule along the fissure within the right middle lobe. Lung bases are otherwise clear. 1.3 cm hypodensity within the posterior right hepatic lobe. Mild prominence of the biliary tree statu s post cholecystectomy. Spleen and pancreas appear normal. Mild nodular thickening of the left adrena l gland, unchanged. No bulky retroperitoneal lymphadenopathy. The kidneys enhance and function symmetrically without evidence of obstructive uropathy. Punctate non obstructing stone within the lower pole of the right kidney. There are prominent loops of small bowel noted within small amount of stool and gas within the colon. Transition point appears to be within the pelvis possibly involving 2 separate points suggesting a c losed loop. Trace free fluid is noted within the pelvis. Urinary bladder is normal. No pelvic lymphad enopathy. Hemangioma is noted within the L2 vertebral body. IMPRESSION: 1. Closed loop Small bowel obstruction with transition points within the lower pelvic region. There a ppears to be 2 separate transition points, suggesting an internal hernia. Small amount of abdominal ascites and free pelvic fluid is noted. 2. Soft tissue nodules within the right middle lobe, these have been reported to at least 2010 sugges ts a benign etiology due to stability. 3. Stable hypodensity within the right hepatic lobe. 4. Punctate nonobstructing right renal stone.
[2017-12-27] MEDS ORDERED: ceFAZolin 1 GM Vial ONE (12:40)
[2017-12-27] MEDS ORDERED: Bupivacaine 0.5% 30 ML SDV ONE (12:40)
--- NOTE | 2017-12-27 12:44 | PCM.HP ---
H&P History of Present Illness - General Date of Service: 12/27/17 Admit Problem/Dx: Admission Diagnosis/Problem Admission Diagnosis/Problem Small bowel obstruction Source of Information: Patient History Limitations: Reports: No Limitations - History of Present Illness Initial Comments - Free Text/Narative: Patient is a 67-year-old female who presented to the emergency room this morning complaining of abdominal pain. States the abdominal pain started about 11:00 last night and has been colicky in nature but becoming progressively more intense. This did awaken her during the night. She has had several episodes of nausea and a couple of episodes of vomiting. She denies passing any gas and has not had a normal bowel movement in the last 24 hours. She denies any fever or chills. No prior history of bowel obstruction. Symptom Onset Date: 12/26/17 Symptom Onset Time: 23:00 Duration of Symptoms: Reports: Hour(s):, Getting Worse Location: Reports: Abdomen Quality: Reports: Other (Colicky) Severity: Moderate Improves with: Reports: None Worsens with: Reports: Movement Context: Reports: Sick Contact Associated Symptoms: Reports: Nausea/Vomiting. Denies: Fever/Chills, Shortness of Breath mid abd pain Pain Score (Numeric/FACES): 3 - Related Data Allergies/Adverse Reactions: Allergies Allergy/AdvReac Type Severity Reaction Status Date / Time levofloxacin [From Levaquin] AdvReac Mild unknown Verified 12/27/17 08:14 Home Medications: Home Meds Ascorbic Acid [Vitamin C] 1,000 mg PO DAILY 12/27/17 [History] Aspirin 81 mg PO DAILY 12/27/17 [History] Calcium Carbonate [Calcium] 500 mg PO DAILY 12/27/17 [History] Cholecalciferol (Vitamin D3) [Vitamin D3] 1,000 unit PO BID 12/27/17 [History] Erythromycin Base [Erythromycin 0.5% Ophth Oint] 1 applic OP BEDTIME 12/27/17 [ History] Fish Oil/DHA/EPA [Fish Oil 1,200 MG] 1 each PO DAILY 12/27/17 [History] Ketamine HCl [Ketamine Hydrochloride] 12/27/17 [History] Metoprolol Succinate [Toprol XL] 25 mg PO DAILY 12/27/17 [History] Multivitamin [Multivitamins] 1 each PO DAILY 12/27/17 [History] Naltrexone HCl [Revia] 1.5 mg PO 12/27/17 [History] Ubidecarenone [Coq-10] 100 mg PO DAILY 12/27/17 [History] Past Medical History HEENT History: Reports: Impaired Vision Other HEENT History: glasses Cardiovascular History: Reports: Other (See Below) Other Cardiovascular History: PSVT Gastrointestinal History: Reports: Chronic Constipation 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 History: Reports: Other (See Below) Other 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 History: Pelvis Congestion Syndrome [employer] History: Reports: Musculoskeletal History: Reports: Osteoporosis Other Musculoskeletal History: fx to Left ulna - Infectious Disease History Infectious Disease History: Reports: Chicken Pox, Measles, Mumps - Past Surgical History Cardiovascular Surgical History: Reports: Other (See Below) GI Surgical History: Reports: Cholecystectomy (Laparoscopic) Female Surgical History: Reports: Hysterectomy (LAVH w/ bilateral SO), Oophorectomy Social & Family History - Family History Family Medical History: Noncontributory HEENT: Reports: None Cardiac: Reports: High Cholesterol Respiratory: Reports: None GI: Reports: None : Reports: None OBGYN: Reports: None Musculoskeletal: Reports: None Neurological: Reports: None Psychiatric: Reports: None Endocrine/Metabolic: Reports: Diabetes, type II Hematologic: Reports: None Immunologic: Reports: None Dermatologic: Reports: None Oncologic: Reports: None - Tobacco Use Smoking Status *Q: Never Smoker - Caffeine Use Caffeine Use: Reports: None - Recreational Drug Use Recreational Drug Use: No H&P Review of Systems - Review of Systems: Review Of Systems: See Below General: Reports: Weakness, Fatigue. Denies: Fever, Chills, Weight Loss HEENT: Reports: No Symptoms Pulmonary: Denies: Shortness of Breath, Wheezing Cardiovascular: Denies: Chest Pain, Palpitations Gastrointestinal: Reports: Abdominal Pain, Anorexia, Constipation, Nausea, Vomiting. Denies: Diarrhea, Flatus, Hematochezia, Melena 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: Reports: No Symptoms Musculoskeletal: Reports: No Symptoms Skin: Denies: Cyanosis, Jaundice, Mottled, Pallor, Diaphoresis Psychiatric: Denies: Confusion, Depression Neurological: Reports: No Symptoms Hematologic/Lymphatic: Denies: Anemia, Easy Bleeding, Easy Bruising Immunologic: Reports: No Symptoms Exam - Exam Exam: See Below - Vital Signs Vital Signs: Last Vital Signs Temp 98.2 F 12/27/17 12:28 Pulse 102 H 12/27/17 12:28 Resp 20 12/27/17 12:28 BP 133/76 12/27/17 12:28 Pulse Ox 97 12/27/17 12:28 Weight: 120 lb - Exam Quality Assessment: No: Supplemental Oxygen General: Alert, Oriented, Cooperative, Moderate Distress HEENT: Conjunctiva Clear, EACs Clear, Pupils Equal, Pupils Reactive, PERRLA. No : Scleral Icterus Neck: Supple, Trachea Midline Lungs: Clear to Auscultation, Normal Respiratory Effort. No: Wheezing Cardiovascular: Regular Rate, Regular Rhythm, Tachycardia GI/Abdominal Exam: Soft, Distended, Tender, Abnormal Bowel Sounds (Hyperactive) , Mass. No: Guarding, Rigid, Rebound, Hernia (Female) Exam: Normal External Exam Rectal (Female) Exam: Deferred Back Exam: Normal Inspection, Full Range of Motion Extremities: Normal Range of Motion, No Pedal Edema, Normal Capillary Refill Peripheral Pulses: 4+: Posterior Tibial (L), Posterior Tibial (R), Dorsalis Pedis (L), Dorsalis Pedis (R) Skin: Warm, Dry, Intact - Patient Data Lab Results Last 24 hrs: Laboratory Results - last 24 hr 12/27/17 12/27/17 12/27/17 Range/Units 08:46 08:46 10:00 WBC 10.77 (4.0-11.0) K/uL RBC 4.31 (4.30-5.90) M/uL Hgb 13.2 (12.0-16.0) g/dL Hct 39.9 (36.0-46.0) % MCV 92.6 (80.0-98.0) fL MCH 30.6 (27.0-32.0) pg MCHC 33.1 (31.0-37.0) g/dL RDW Std Deviation 42.2 (28.0-62.0) fl RDW Coeff of Arianne 12 (11.0-15.0) % Plt Count 204 (150-400) K/uL MPV 10.10 (7.40-12.00) fL Neut % (Auto) 87.1 H (48.0-80.0) % Lymph % (Auto) 9.4 L (16.0-40.0) % Logan % (Auto) 3.3 (0.0-15.0) % Eos % (Auto) 0.1 (0.0-7.0) % Baso % (Auto) 0.1 (0.0-1.5) % Neut # (Auto) 9.4 H (1.4-5.7) K/uL Lymph # (Auto) 1.0 (0.6-2.4) K/uL Logan # (Auto) 0.4 (0.0-0.8) K/uL Eos # (Auto) 0.0 (0.0-0.7) K/uL Baso # (Auto) 0.0 (0.0-0.1) K/uL Nucleated RBC % 0.0 /100WBC Nucleated RBCs # 0 K/uL Lactate (0.20-2.00) mmol/L Sodium 143 (136-145) mmol/L Potassium 4.2 (3.5-5.1) mmol/L Chloride 107 (98-107) mmol/L Carbon Dioxide 28.0 (21.0-32.0) mmol/L BUN 18 (7.0-18.0) mg/dL Creatinine 0.9 (0.6-1.0) mg/dL Est Cr Clr Drug Dosing 52.12 mL/min Estimated GFR (MDRD) > 60.0 ml/min Glucose 119 H (74-106) mg/dL Calcium 9.3 (8.5-10.1) mg/dL Total Bilirubin 0.8 (0.2-1.0) mg/dL AST 23 (15-37) IU/L ALT 29 (14-63) IU/L Alkaline Phosphatase 76 (46-116) U/L Total Protein 6.7 (6.4-8.2) g/dL Albumin 3.8 (3.4-5.0) g/dL Globulin 2.9 (2.0-3.5) g/dL Albumin/Globulin Ratio 1.3 (1.3-2.8) Lipase 230 (73-393) U/L Urine Color YELLOW Urine Appearance SLT CLOUDY Urine pH 7.0 (5.0-8.0) Ur Specific Lincoln 1.015 (1.001-1.035) Urine Protein NEGATIVE (NEGATIVE) mg/dL Urine Glucose (UA) NEGATIVE (NEGATIVE) mg/dL Urine Ketones TRACE H (NEGATIVE) mg/dL Urine Occult Blood NEGATIVE (NEGATIVE) Urine Nitrite NEGATIVE (NEGATIVE) Urine Bilirubin NEGATIVE (NEGATIVE) Urine Urobilinogen 0.2 (<2.0) EU/dL Ur Leukocyte Esterase NEGATIVE (NEGATIVE) Urine RBC 0-1 (0-2/HPF) Urine WBC 0-2 (0-5/HPF) Ur Epithelial Cells FEW (NONE-FEW) Amorphous Sediment MANY (NEGATIVE) Urine Bacteria FEW (NEGATIVE) 12/27/17 Range/Units 12:12 WBC (4.0-11.0) K/uL RBC (4.30-5.90) M/uL Hgb (12.0-16.0) g/dL Hct (36.0-46.0) % MCV (80.0-98.0) fL MCH (27.0-32.0) pg MCHC (31.0-37.0) g/dL RDW Std Deviation (28.0-62.0) fl RDW Coeff of Arianne (11.0-15.0) % Plt Count (150-400) K/uL MPV (7.40-12.00) fL Neut % (Auto) (48.0-80.0) % Lymph % (Auto) (16.0-40.0) % Logan % (Auto) (0.0-15.0) % Eos % (Auto) (0.0-7.0) % Baso % (Auto) (0.0-1.5) % Neut # (Auto) (1.4-5.7) K/uL Lymph # (Auto) (0.6-2.4) K/uL Logan # (Auto) (0.0-0.8) K/uL Eos # (Auto) (0.0-0.7) K/uL Baso # (Auto) (0.0-0.1) K/uL Nucleated RBC % /100WBC Nucleated RBCs # K/uL Lactate 0.7 (0.20-2.00) mmol/L Sodium (136-145) mmol/L Potassium (3.5-5.1) mmol/L Chloride (98-107) mmol/L Carbon Dioxide (21.0-32.0) mmol/L BUN (7.0-18.0) mg/dL Creatinine (0.6-1.0) mg/dL Est Cr Clr Drug Dosing mL/min Estimated GFR (MDRD) ml/min Glucose (74-106) mg/dL Calcium (8.5-10.1) mg/dL Total Bilirubin (0.2-1.0) mg/dL AST (15-37) IU/L ALT (14-63) IU/L Alkaline Phosphatase (46-116) U/L Total Protein (6.4-8.2) g/dL Albumin (3.4-5.0) g/dL Globulin (2.0-3.5) g/dL Albumin/Globulin Ratio (1.3-2.8) Lipase (73-393) U/L Urine Color Urine Appearance Urine pH (5.0-8.0) Ur Specific Lincoln (1.001-1.035) Urine Protein (NEGATIVE) mg/dL Urine Glucose (UA) (NEGATIVE) mg/dL Urine Ketones (NEGATIVE) mg/dL Urine Occult Blood (NEGATIVE) Urine Nitrite (NEGATIVE) Urine Bilirubin (NEGATIVE) Urine Urobilinogen (<2.0) EU/dL Ur Leukocyte Esterase (NEGATIVE) Urine RBC (0-2/HPF) Urine WBC (0-5/HPF) Ur Epithelial Cells (NONE-FEW) Amorphous Sediment (NEGATIVE) Urine Bacteria (NEGATIVE) Result Diagrams: 12/27/17 08:46 12/27/17 08:46 - Problem List (1) Obstruction of small intestine due to peritoneal adhesion SNOMED Code(s): 162689906 ICD Code: K56.50 - INTESTNL ADHESIONS, UNSP TO PARTIAL VERSUS COMPLETE OBST Status: Acute Priority: High Current Visit: Yes (2) Small bowel obstruction with strangulation or infarction SNOMED Code(s): 636657849 ICD Code: DTV9925 - Status: Acute Priority: High Current Visit: Yes (3) Abdominal pain of unknown cause SNOMED Code(s): 344244254 ICD Code: R10.9 - UNSPECIFIED ABDOMINAL PAIN Status: Acute Priority: High Current Visit: No Problem List Initiated/Reviewed/Updated: Yes Orders Last 24hrs: Active Orders 24 hr Category Date Time Status Patient Status [ADT] Stat ADT 12/27/17 12:28 Active Antiembolic Devices [RC] PER UNIT ROUTINE Care 12/27/17 12:37 Ordered Alvarado Catheter Insertion [Insert Urinary Catheter] [OM. Care 12/27/17 12:45 Ordered PC] Q24H Skin Preparation [RC] .PREOP Care 12/27/17 12:37 Ordered Up ad Lissette [RC] ASDIRECTED Care 12/27/17 12:37 Ordered Urinary Catheter Assessment [RC] ASDIRECTED Care 12/27/17 12:38 Ordered Vital Signs [RC] PER UNIT ROUTINE Care 12/27/17 12:37 Ordered Nothing Per Oral Diet [DIET] Diet 12/27/17 Breakfast Ordered UA W/MICROSCOPIC [URIN] Stat Lab 12/27/17 10:00 Ordered Lactated Ringers @ 125 MLS/HR(1000ml) Med 12/27/17 12:45 Ordered Lactated Ringers [Ringers, Lactated] 1,000 ml IV ASDIRECTED Sodium Chloride 0.9% [Saline Flush] Med 12/27/17 08:25 Active 10 ml FLUSH ASDIRECTED PRN Sodium Chloride 0.9% [Saline Flush] Med 12/27/17 08:25 Active 2.5 ml FLUSH ASDIRECTED PRN cefOXitin [Mefoxin in Dextrose,Iso-Osm 1 GM/50 ML] 1 gm Med 12/27/17 12:45 Ordered Premix Bag 1 bag IV ONETIME Antiembolic Hose [OM.PC] PER UNIT ROUTINE Oth 12/27/17 06:00 Ordered Antiembolic Hose [OM.PC] PER UNIT ROUTINE Oth 12/28/17 06:00 Ordered Nasogastric Orogastric Tube Insertion [OM.PC] .IN OR Oth 12/27/17 12:45 Ordered Saline Lock Insert [OM.PC] Stat Oth 12/27/17 08:25 Ordered Sequential Compression Device [OM.PC] Routine Oth 12/27/17 12:37 Ordered Resuscitation Status Routine Resus Stat 12/27/17 12:37 Ordered Medication Orders Sodium Chloride (Saline Flush) 10 ml FLUSH ASDIRECTED PRN PRN Reason: Keep Vein Open Sodium Chloride (Saline Flush) 2.5 ml FLUSH ASDIRECTED PRN PRN Reason: Keep Vein Open Assessment/Plan Comment:: High-grade possible closed loop obstruction of the small bowel secondary to pelvic adhesions. Exploratory laparotomy with lysis of adhesions and possible small bowel resection. The operative procedure, along with the risks including but not limited to bleeding, infection, pneumonia, deep venous thrombosis, pulmonary emboli, myocardial infarction, possibility of resection, possibility of failure of the anastomosis have been reviewed with the patient today. She states she understands. Questions have been answered. She wishes to proceed.
[2017-12-27] MEDS ORDERED: cefOXitin 1 GM in Premix Bag 1 BAG IV SCH (12:45)
[2017-12-27] MEDS ORDERED: fentaNYL 250 MCG/5 ML SDV ONE (12:57)
[2017-12-27] MEDS ORDERED: Ondansetron 4 MG/2 ML SDV ONE (12:57)
[2017-12-27] MEDS ORDERED: Propofol 200 MG/20 ML SDV ONE (12:57)
[2017-12-27] MEDS ORDERED: Lidocaine 2% 5 ML SDV ONE (12:57)
[2017-12-27] MEDS ORDERED: Midazolam 1 MG/ML 2 ML SDV ONE (12:57)
[2017-12-27] MEDS ORDERED: Rocuronium 10 MG/ML 10 ML Syringe ONE (12:57)
[2017-12-27] MEDS ORDERED: Sodium Chloride 0.9% 20 ML ONE (12:57)
[2017-12-27] MEDS ORDERED: Succinylcholine 200 MG/10 ML MDV ONE (12:57)
[2017-12-27] MEDS ORDERED: ePHEDrine 50 MG/ML SDV ONE (12:57)
[2017-12-27] MEDS ORDERED: Glycopyrrolate 0.2 MG/ML SDV ONE ×2 (13:25→13:55)
[2017-12-27] MEDS ORDERED: Neostigmine Methylsulfate 1 MG/ML 5 ML Syringe ONE (13:55)
[2017-12-27] MEDS ORDERED: HYDROmorphone 2 MG/ML SDV ONE (14:09)
[2017-12-27] MEDS ORDERED: fentaNYL 100 MCG/2 ML SDV IVPUSH PRN (14:26)
[2017-12-27] MEDS ORDERED: Ondansetron 4 MG/2 ML SDV IVPUSH PRN (14:37)
--- NOTE | 2017-12-27 14:42 | PCM.OPNOTE ---
- General Post-Op/Procedure Note Date of Surgery/Procedure: 12/27/17 Operative Procedure(s): Exploratory laparotomy with lysis of adhesions Pre Op Diagnosis: High-grade small bowel obstruction Post-Op Diagnosis: Closed-loop high-grade small bowel obstruction Anesthesia Technique: General ET Tube (ASA IIE) Primary Surgeon: Allen More Fluid Replacement, Intraop: 1,500 Output, Urine Amount: 80 EBL in mLs: 20 Condition: Serious Free Text/Narrative:: DICTATION [id number] CPT CODE [id number]
[2017-12-27] MEDS ORDERED: Morphine PF 30 MG/30 ML PCA Vial IV SCH ×2 (14:45→15:00)
--- NOTE | 2017-12-27 14:56 | OR ---
SURGEON: Allen More M.D. DATE OF PROCEDURE: 12/27/2017 OPERATIONS PERFORMED: Exploratory laparotomy with lysis of adhesions and placement of Interceed. ANESTHESIA: General endotracheal. ASA CLASSIFICATION: IIE. PREOPERATIVE DIAGNOSIS: High-grade small-bowel obstruction with possible loop obstruction. POSTOPERATIVE DIAGNOSIS: Pelvic adhesions with a tight band creating a loop obstruction. ESTIMATED BLOOD LOSS: 20 mL. INTRAOPERATIVE FLUID REPLACEMENT: 1500 mL of crystalloid. INTRAOPERATIVE URINARY OUTPUT: 80 mL. INTRAOPERATIVE NG OUTPUT: 200 mL. DESCRIPTION OF PROCEDURE: The patient was taken to the operating room and placed on the operating table in the supine position. Time-out was called for appropriate identification of the patient and procedure. Sequential compression boots were placed. Following satisfactory attainment of general endotracheal anesthesia, a Alvarado catheter was placed in the patient's urinary bladder. NG tube was placed and position confirmed intraoperatively. The abdomen was prepped with DuraPrep solution and sterile drapes were applied. Midline skin incision was made beginning just above the umbilicus skirting to the left and then extending down to the symphysis pubis. Hemostasis was obtained with the use of electrocautery. Cautery was used to enter the peritoneal cavity. There were no adhesions to the anterior abdominal wall. The full length of the incision was opened up with electrocautery. There was a moderate amount of ascitic fluid, this was aspirated. This was not bloody in appearance and there was no malodorous drainage. The distal small intestine was dilated and the adhesion was readily found and lysed with sharp dissection using a Metzenbaum scissor. Following that, more pelvic adhesions were taken down to hopefully prevent a further obstruction. Once that was accomplished, small bowel was examined from the ileocecal valve proximally to the ligament of Treitz. There was no other evidence of obstruction. There was no evidence of compromised vascularity or bowel integrity. Once that was all accomplished, the pelvis was irrigated with sterile saline solution. All fluid was aspirated. There was oozing from the dissection and Surgicel was placed into the pelvis followed by a single layer of Interceed over the Surgicel. The wound was further inspected for hemostasis and small subcutaneous bleeding sites were electrocoagulated. The peritoneum was closed with running 0 Vicryl. The fascia was reapproximated with #1 looped PDS. On-Q catheter was placed in the subcutaneous position and the subcutaneous tissue reapproximated with running 3-0 Vicryl. The skin edges were reapproximated with skin clips. Tegaderm was used to secure the on-Q to the skin and the incision was then dressed with Telfa and an ABD. Sponge, needle, and instrument counts were all correct. The patient tolerated the procedure well. Following emergence from anesthesia and extubation, she was taken to recovery room in stable condition. LEOLA / KELLIE /[id number]
--- NOTE | 2017-12-27 15:07 | PCM.POSTAN ---
POST ANESTHESIA ASSESSMENT - MENTAL STATUS Mental Status: Alert, Oriented - VITAL SIGNS Pulse Rate: 78 SaO2: 98 Resp Rate: 12 Blood Pressure: 127/69 - RESPIRATORY Respiratory Status: Respiratory Rate WNL, Airway Patent, O2 Saturation Stable - CARDIOVASCULAR CV Status: Pulse Rate WNL, Blood Pressure Stable - GASTROINTESTINAL GI Status: No Symptoms - PAIN Pain Score: 4 (TRANSPLANT REGISTERED NURSE ordered and started) - POST OP HYDRATION Hydration Status: Adequate & Stable
[2017-12-27] MEDS: Metoclopramide 10 MG/2 ML SDV IV SCH ×2 (15:47→21:02)
[2017-12-27] MEDS: Lactated Ringers 1,000 ML IV SCH (15:50)
[2017-12-27] MEDS: Benzocaine/Cetylpyridinium/Menthol Lozenge MUCMEM PRN ×2 (18:49→23:48)
[2017-12-28] MEDS: Lactated Ringers 1,000 ML IV SCH ×3 (01:00→17:47)
[2017-12-28] MEDS: Metoclopramide 10 MG/2 ML SDV IV SCH ×4 (02:51→20:18)
[2017-12-28 06:05] LABS: CHLORIDE,CL 108 mmol/L (98-107); SODIUM,NA 142 mmol/L (136-145)
--- NOTE | 2017-12-28 07:03 | PCM48HPAN ---
Post Anesthesia Note - EVALUATION WITHIN 48HRS OF ANESTHETIC Vital Signs in Normal Range: Yes Patient Participated in Evaluation: Yes Respiratory Function Stable: Yes Airway Patent: Yes Cardiovascular Function Stable: Yes Hydration Status Stable: Yes Pain Control Satisfactory: Yes Nausea and Vomiting Control Satisfactory: Yes Mental Status Recovered: Yes Pulse Rate: 78 Resp Rate: 19 Blood Pressure: 127/69
--- NOTE | 2017-12-28 07:52 | PCM.SURGPN ---
- General Info Date of Service: 12/28/17 POD#: 1 Post-Op Diagnosis: High grade loop small bowel obstruction Functional Status: Reports: Pain Controlled, Ambulating, Urinating. Denies: New Symptoms - Review of Systems General: Reports: Fatigue. Denies: Fever, Weakness HEENT: Reports: No Symptoms Pulmonary: Denies: Shortness of Breath, Wheezing Cardiovascular: Denies: Chest Pain, Palpitations Gastrointestinal: Reports: Abdominal Pain (incisional). Denies: Nausea, Vomiting 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: Reports: No Symptoms Musculoskeletal: Reports: No Symptoms Skin: Denies: Cyanosis, Jaundice Neurological: Reports: No Symptoms Psychiatric: Reports: No Symptoms - Patient Data Vitals - Most Recent: Last Vital Signs Temp 99.5 F 12/28/17 05:30 Pulse 78 12/28/17 07:03 Resp 19 12/28/17 07:03 BP 127/69 12/28/17 07:03 Pulse Ox 93 L 12/28/17 05:30 Weight - Most Recent: 120 lb I&O - Last 24 Hours: Intake & Output 12/27/17 12/28/17 12/28/17 19:59 03:59 11:59 Intake Total 3300 Output Total 260 600 Balance 3040 -600 Lab Results Last 24 Hrs: Laboratory Results - last 24 hr 12/27/17 12/27/17 12/27/17 Range/Units 08:46 08:46 10:00 WBC 10.77 (4.0-11.0) K/uL RBC 4.31 (4.30-5.90) M/uL Hgb 13.2 (12.0-16.0) g/dL Hct 39.9 (36.0-46.0) % MCV 92.6 (80.0-98.0) fL MCH 30.6 (27.0-32.0) pg MCHC 33.1 (31.0-37.0) g/dL RDW Std Deviation 42.2 (28.0-62.0) fl RDW Coeff of Arianne 12 (11.0-15.0) % Plt Count 204 (150-400) K/uL MPV 10.10 (7.40-12.00) fL Neut % (Auto) 87.1 H (48.0-80.0) % Lymph % (Auto) 9.4 L (16.0-40.0) % [place] % (Auto) 3.3 (0.0-15.0) % Eos % (Auto) 0.1 (0.0-7.0) % Baso % (Auto) 0.1 (0.0-1.5) % Neut # (Auto) 9.4 H (1.4-5.7) K/uL Lymph # (Auto) 1.0 (0.6-2.4) K/uL [place] # (Auto) 0.4 (0.0-0.8) K/uL Eos # (Auto) 0.0 (0.0-0.7) K/uL Baso # (Auto) 0.0 (0.0-0.1) K/uL Nucleated RBC % 0.0 /100WBC Nucleated RBCs # 0 K/uL Lactate (0.20-2.00) mmol/L Sodium 143 (136-145) mmol/L Potassium 4.2 (3.5-5.1) mmol/L Chloride 107 (98-107) mmol/L Carbon Dioxide 28.0 (21.0-32.0) mmol/L BUN 18 (7.0-18.0) mg/dL Creatinine 0.9 (0.6-1.0) mg/dL Est Cr Clr Drug Dosing 52.12 mL/min Estimated GFR (MDRD) > 60.0 ml/min Glucose 119 H (74-106) mg/dL Calcium 9.3 (8.5-10.1) mg/dL Total Bilirubin 0.8 (0.2-1.0) mg/dL AST 23 (15-37) IU/L ALT 29 (14-63) IU/L Alkaline Phosphatase 76 (46-116) U/L Total Protein 6.7 (6.4-8.2) g/dL Albumin 3.8 (3.4-5.0) g/dL Globulin 2.9 (2.0-3.5) g/dL Albumin/Globulin Ratio 1.3 (1.3-2.8) Lipase 230 (73-393) U/L Urine Color YELLOW Urine Appearance SLT CLOUDY Urine pH 7.0 (5.0-8.0) Ur Specific [place] 1.015 (1.001-1.035) Urine Protein NEGATIVE (NEGATIVE) mg/dL Urine Glucose (UA) NEGATIVE (NEGATIVE) mg/dL Urine Ketones TRACE H (NEGATIVE) mg/dL Urine Occult Blood NEGATIVE (NEGATIVE) Urine Nitrite NEGATIVE (NEGATIVE) Urine Bilirubin NEGATIVE (NEGATIVE) Urine Urobilinogen 0.2 (<2.0) EU/dL Ur Leukocyte Esterase NEGATIVE (NEGATIVE) Urine RBC 0-1 (0-2/HPF) Urine WBC 0-2 (0-5/HPF) Ur Epithelial Cells FEW (NONE-FEW) Amorphous Sediment MANY (NEGATIVE) Urine Bacteria FEW (NEGATIVE) 12/27/17 12/28/17 12/28/17 Range/Units 12:12 05:08 05:08 WBC 14.34 H (4.0-11.0) K/uL RBC 3.66 L (4.30-5.90) M/uL Hgb 11.2 L (12.0-16.0) g/dL Hct 35.1 L (36.0-46.0) % MCV 95.9 (80.0-98.0) fL MCH 30.6 (27.0-32.0) pg MCHC 31.9 (31.0-37.0) g/dL RDW Std Deviation 40.6 (28.0-62.0) fl RDW Coeff of Arianne 12 (11.0-15.0) % Plt Count 181 (150-400) K/uL MPV 11.10 (7.40-12.00) fL Neut % (Auto) 87.2 H (48.0-80.0) % Lymph % (Auto) 7.0 L (16.0-40.0) % [place] % (Auto) 5.7 (0.0-15.0) % Eos % (Auto) 0.0 (0.0-7.0) % Baso % (Auto) 0.1 (0.0-1.5) % Neut # (Auto) 12.5 H (1.4-5.7) K/uL Lymph # (Auto) 1.0 (0.6-2.4) K/uL [place] # (Auto) 0.8 (0.0-0.8) K/uL Eos # (Auto) 0.0 (0.0-0.7) K/uL Baso # (Auto) 0.0 (0.0-0.1) K/uL Nucleated RBC % /100WBC Nucleated RBCs # K/uL Lactate 0.7 (0.20-2.00) mmol/L Sodium 142 (136-145) mmol/L Potassium 3.9 (3.5-5.1) mmol/L Chloride 108 H (98-107) mmol/L Carbon Dioxide 29.8 (21.0-32.0) mmol/L BUN 13 (7.0-18.0) mg/dL Creatinine 0.9 (0.6-1.0) mg/dL Est Cr Clr Drug Dosing 52.12 mL/min Estimated GFR (MDRD) > 60.0 ml/min Glucose 127 H (74-106) mg/dL Calcium 8.1 L (8.5-10.1) mg/dL Total Bilirubin (0.2-1.0) mg/dL AST (15-37) IU/L ALT (14-63) IU/L Alkaline Phosphatase (46-116) U/L Total Protein (6.4-8.2) g/dL Albumin (3.4-5.0) g/dL Globulin (2.0-3.5) g/dL Albumin/Globulin Ratio (1.3-2.8) Lipase (73-393) U/L Urine Color Urine Appearance Urine pH (5.0-8.0) Ur Specific [place] (1.001-1.035) Urine Protein (NEGATIVE) mg/dL Urine Glucose (UA) (NEGATIVE) mg/dL Urine Ketones (NEGATIVE) mg/dL Urine Occult Blood (NEGATIVE) Urine Nitrite (NEGATIVE) Urine Bilirubin (NEGATIVE) Urine Urobilinogen (<2.0) EU/dL Ur Leukocyte Esterase (NEGATIVE) Urine RBC (0-2/HPF) Urine WBC (0-5/HPF) Ur Epithelial Cells (NONE-FEW) Amorphous Sediment (NEGATIVE) Urine Bacteria (NEGATIVE) Med Orders - Current: Current Medications Benzocaine/Menthol (Cepacol Sore Throat) 1 lozenge MUCMEM ASDIRECTED PRN PRN Reason: Sore Throat Last Admin: 12/27/17 23:48 Dose: 1 lozenge Fentanyl (Sublimaze) 50 mcg IVPUSH Q5M PRN PRN Reason: Pain (severe 7-10) Stop: 12/28/17 14:26 Cefoxitin Sodium 1 gm/ Premix 50 mls @ 100 mls/hr IV ONETIME CK Lactated Ringer's (Ringers, Lactated) 1,000 mls @ 125 mls/hr IV ASDIRECTED CK Lactated Ringer's (Ringers, Lactated) 1,000 mls @ 125 mls/hr IV ASDIRECTED CK Last Admin: 12/28/17 01:00 Dose: 125 mls/hr Metoclopramide HCl (Reglan) 10 mg IV Q6H [facility] Last Admin: 12/28/17 02:51 Dose: 10 mg Morphine Sulfate (Morphine Animal Care Assistant 30 Mg In 30 Ml) 30 mg IV ASDIRECTED CK; Protocol Ondansetron HCl (Zofran) 4 mg IVPUSH Q6H PRN PRN Reason: Nausea/Vomiting Sodium Chloride (Saline Flush) 10 ml FLUSH ASDIRECTED PRN PRN Reason: Keep Vein Open Sodium Chloride (Saline Flush) 2.5 ml FLUSH ASDIRECTED PRN PRN Reason: Keep Vein Open Discontinued Medications Bupivacaine HCl (Marcaine 0.5%) Confirm Administered Dose 120 ml .ROUTE .STK- MED ONE Stop: 12/27/17 12:41 Cefazolin Sodium (Ancef) Confirm Administered Dose 1 gm .ROUTE .STK-MED ONE Stop: 12/27/17 12:41 Ephedrine Sulfate (Ephedrine Sulfate) Confirm Administered Dose 50 mg .ROUTE .STK-MED ONE Stop: 12/27/17 12:58 Fentanyl (Sublimaze) Confirm Administered Dose 250 mcg .ROUTE .STK-MED ONE Stop: 12/27/17 12:58 Glycopyrrolate (Robinul) Confirm Administered Dose 0.2 mg .ROUTE .STK-MED ONE Stop: 12/27/17 13:26 Glycopyrrolate (Robinul) Confirm Administered Dose 0.4 mg .ROUTE .STK-MED ONE Stop: 12/27/17 13:56 Hydromorphone HCl (Dilaudid) Confirm Administered Dose 2 mg .ROUTE .STK-MED ONE Stop: 12/27/17 14:10 Hyoscyamine (Hyomax-Sl) 0.125 mg SL ONETIME ONE Stop: 12/27/17 09:56 Last Admin: 12/27/17 10:03 Dose: 0.125 mg Sodium Chloride (Normal Saline) 1,000 mls @ 999 mls/hr IV .Bolus ONE Stop: 12/27/17 09:25 Last Admin: 12/27/17 08:52 Dose: 999 mls/hr Sodium Chloride (Normal Saline) Confirm Administered Dose 20 mls @ as directed .ROUTE .STK-MED ONE Stop: 12/27/17 12:58 Iopamidol (Isovue Multipack-370 (76%)) 100 ml IVPUSH ONETIME STA Stop: 12/27/17 11:18 Last Admin: 12/27/17 11:25 Dose: 100 ml Lidocaine (Xylocaine-Mpf 2%) Confirm Administered Dose 5 ml .ROUTE .STK-MED ONE Stop: 12/27/17 12:58 Midazolam HCl (Versed 1 Mg/Ml) Confirm Administered Dose 2 mg .ROUTE .STK-MED ONE Stop: 12/27/17 12:58 Neostigmine Methylsulfate (Neostigmine) Confirm Administered Dose 5 mg .ROUTE .STK-MED ONE Stop: 12/27/17 13:56 Ondansetron HCl (Zofran) Confirm Administered Dose 4 mg .ROUTE .STK-MED ONE Stop: 12/27/17 12:58 Propofol (Diprivan 20 Ml) Confirm Administered Dose 200 mg .ROUTE .STK-MED ONE Stop: 12/27/17 12:58 Rocuronium [place] (Zemuron) Confirm Administered Dose 100 mg .ROUTE .STK-MED ONE Stop: 12/27/17 12:58 Succinylcholine Chloride (Quelicin) Confirm Administered Dose 200 mg .ROUTE .STK -MED ONE Stop: 12/27/17 12:58 - Exam Wound/Incisions: Dressing Dry and Intact, Drainage (expected due to On-Q) General: Alert, Oriented, Cooperative, Mild Distress HEENT: Pupils Equal, Pupils Reactive. No: Scleral Icterus Neck: Supple Lungs: Clear to Auscultation, Normal Respiratory Effort. No: Crackles, Rales Cardiovascular: Regular Rate, Regular Rhythm GI/Abdominal Exam: Soft, Non-Tender, No Distention, Abnormal Bowel Sounds ( hypoactive). 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 SNOMED Code(s): 041200567 Code(s): K56.50 - INTESTNL ADHESIONS, UNSP TO PARTIAL VERSUS COMPLETE OBST Status: Acute Priority: High Current Visit: Yes (2) Small bowel obstruction with strangulation or infarction SNOMED Code(s): 725653218 Code(s): AOE7073 - Status: Acute Priority: High Current Visit: Yes (3) Abdominal pain of unknown cause SNOMED Code(s): 245196455 Code(s): R10.9 - UNSPECIFIED ABDOMINAL PAIN Status: Acute Priority: High Current Visit: No - Problem List Review Problem List Initiated/Reviewed/Updated: Yes - My Orders Last 24 Hours: Active Orders 24 hr Category Date Time Status Patient Status [ADT] Stat ADT 12/27/17 12:28 Active Antiembolic Devices [RC] PER UNIT ROUTINE Care 12/27/17 12:37 Active Bradycardia-Neuroaxis [employer] [RC] ROUTINE Care 12/27/17 14:26 Active [place]ado Catheter Insertion [Insert Urinary Catheter] [OM. Care 12/27/17 12:45 Ordered PC] Q24H Hypertension-Neuroaxis [employer] [RC] ROUTINE Care 12/27/17 14:26 Active Hypotension-Neuroaxis [employer] [RC] ROUTINE Care 12/27/17 14:26 Active Intake and Output [RC] Q12H Care 12/27/17 14:36 Active Oxygen Therapy [RC] PRN Care 12/27/17 14:36 Active Pulse Oximetry [RC] INTERMITTENT Care 12/27/17 14:36 Active RT Incentive Spirometry [RC] Q1HWA Care 12/27/17 14:36 Active Skin Preparation [RC] .PREOP Care 12/27/17 12:37 Active Up ad Lissette [RC] ASDIRECTED Care 12/27/17 12:37 Active Up ad Lissette [RC] ASDIRECTED Care 12/27/17 14:36 Active Urinary Catheter Assessment [RC] ASDIRECTED Care 12/27/17 12:38 Active Urinary Catheter Assessment [RC] ASDIRECTED Care 12/27/17 14:37 Active Vital Signs [RC] PER UNIT ROUTINE Care 12/27/17 12:37 Active Vital Signs [RC] PER UNIT ROUTINE Care 12/27/17 14:36 Active UA W/MICROSCOPIC [URIN] Stat Lab 12/27/17 10:00 Ordered Benzocaine/Cetylpyrd/Menthol [Cepacol Sore Throat] Med 12/27/17 14:39 Active 1 lozenge MUCMEM ASDIRECTED PRN Lactated Ringers [Ringers, Lactated] 1,000 ml Med 12/27/17 12:45 Active IV ASDIRECTED Lactated Ringers [Ringers, Lactated] 1,000 ml Med 12/27/17 14:45 Active IV ASDIRECTED Metoclopramide [Reglan] Med 12/27/17 14:45 Active 10 mg IV Q6H Morphine PF [Morphine INDUSTRIAL GAS SERVICE HELPER 30 MG in 30 ML] Med 12/27/17 15:00 Active 30 mg IV ASDIRECTED Ondansetron [Zofran] Med 12/27/17 14:37 Active 4 mg IVPUSH Q6H PRN Sodium Chloride 0.9% [Saline Flush] Med 12/27/17 08:25 Active 10 ml FLUSH ASDIRECTED PRN Sodium Chloride 0.9% [Saline Flush] Med 12/27/17 08:25 Active 2.5 ml FLUSH ASDIRECTED PRN cefOXitin [Mefoxin in Dextrose,Iso-Osm 1 GM/50 ML] 1 gm Med 12/27/17 12:45 Active Premix Bag 1 bag IV ONETIME fentaNYL [Sublimaze] Med 12/27/17 14:26 Active 50 mcg IVPUSH Q5M PRN Antiembolic Hose [OM.PC] PER UNIT ROUTINE Oth 12/28/17 06:00 Ordered Nasogastric Orogastric Tube Insertion [OM.PC] .IN OR Oth 12/27/17 12:45 Ordered Nasogastric Orogastric Tube Insertion [OM.PC] .IN OR Oth 12/27/17 14:45 Ordered Saline Lock Insert [OM.PC] Stat Oth 12/27/17 08:25 Ordered Sequential Compression Device [OM.PC] Routine Oth 12/27/17 12:37 Ordered Sequential Compression Device [OM.PC] Routine Oth 12/27/17 14:36 Ordered Resuscitation Status Routine Resus Stat 12/27/17 12:37 Ordered Medication Orders Benzocaine/Menthol (Cepacol Sore Throat) 1 lozenge MUCMEM ASDIRECTED PRN PRN Reason: Sore Throat Last Admin: 06/27/18 23:48 Dose: 1 lozenge Admin: 12/27/17 18:49 Dose: 1 lozenge Fentanyl (Sublimaze) 50 mcg IVPUSH Q5M PRN PRN Reason: Pain (severe 7-10) Stop: 12/28/17 14:26 Cefoxitin Sodium 1 gm/ Premix 50 mls @ 100 mls/hr IV ONETIME CK Lactated Ringer's (Ringers, Lactated) 1,000 mls @ 125 mls/hr IV ASDIRECTED CK Lactated Ringer's (Ringers, Lactated) 1,000 mls @ 125 mls/hr IV ASDIRECTED CK Last Admin: 12/28/17 01:00 Dose: 125 mls/hr Infusion: 12/27/17 23:50 Dose: 125 mls/hr Admin: 12/27/17 15:50 Dose: 125 mls/hr Metoclopramide HCl (Reglan) 10 mg IV Q6H [facility] Last Admin: 12/28/17 02:51 Dose: 10 mg Admin: 12/27/17 21:02 Dose: 10 mg Admin: 12/27/17 15:47 Dose: 10 mg Morphine Sulfate (Morphine Animal Care Assistant 30 Mg In 30 Ml) 30 mg IV ASDIRECTED [facility]; Protocol Ondansetron HCl (Zofran) 4 mg IVPUSH Q6H PRN PRN Reason: Nausea/Vomiting Sodium Chloride (Saline Flush) 10 ml FLUSH ASDIRECTED PRN PRN Reason: Keep Vein Open Sodium Chloride (Saline Flush) 2.5 ml FLUSH ASDIRECTED PRN PRN Reason: Keep Vein Open - Assessment Assessment (Free Text/Narrative):: Patient is stable. C/O incisional discomfort only. Labs reviewed. Drop in Hgb dilutional. - Plan Plan (Free Text/Narrative):: Increase activity. D/C NG and [place]. Full liquids.
[2017-12-28] MEDS: Benzocaine/Cetylpyridinium/Menthol Lozenge MUCMEM PRN ×2 (10:05→15:53)
--- NOTE | 2017-12-28 16:14 | PCM.SN ---
- Free Text/Narrative Note: Patient has had a good day. Ambulated twice so far. No N/V. No flatus. Tolerating po liquids. Lungs clear. Heart RRR. Abdomen soft and nontender. Hypoactive BS. Dressing dry. No new shadowing.
[2017-12-28] MEDS: Metoprolol Succinate 25 MG Tab.ER PO SCH (17:43)
[2017-12-29] MEDS: Lactated Ringers 1,000 ML IV SCH ×3 (01:45→18:32)
[2017-12-29] MEDS: Metoclopramide 10 MG/2 ML SDV IV SCH ×4 (01:46→21:38)
[2017-12-29] MEDS: Metoprolol Succinate 25 MG Tab.ER PO SCH (08:15)
--- NOTE | 2017-12-29 13:08 | PCM.SURGPN ---
- General Info Date of Service: 12/29/17 POD#: 2 Post-Op Diagnosis: Closed loop small bowel obstruction Functional Status: Reports: Pain Controlled, Tolerating Diet, Ambulating, Urinating - Review of Systems General: Denies: Fever, Weakness, Chills, Appetite HEENT: Reports: No Symptoms Pulmonary: Denies: Shortness of Breath, Pleuritic Chest Pain, Cough Cardiovascular: Denies: Chest Pain Gastrointestinal: Reports: Abdominal Pain (incisional), Decreased Appetite. Denies: Diarrhea, Difficulty Swallowing, Flatus, Hematochezia, Melena, Nausea, Vomiting 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: Denies: Dysuria, Pain Musculoskeletal: Reports: No Symptoms Skin: Denies: Cyanosis, Jaundice Neurological: Denies: Confusion, Dizziness Psychiatric: Reports: No Symptoms - Patient Data Vitals - Most Recent: Last Vital Signs Temp 98.2 F 12/29/17 11:51 Pulse 80 12/29/17 11:51 Resp 18 12/29/17 11:51 BP 122/59 L 12/29/17 11:51 Pulse Ox 96 12/29/17 11:51 Weight - Most Recent: 120 lb I&O - Last 24 Hours: Intake & Output 12/29/17 12/29/17 12/29/17 03:59 11:59 19:59 Intake Total 1169 358 Output Total 800 Balance 1169 -442 Med Orders - Current: Current Medications Benzocaine/Menthol (Cepacol Sore Throat) 1 lozenge MUCMEM ASDIRECTED PRN PRN Reason: Sore Throat Last Admin: 12/28/17 15:53 Dose: 1 lozenge Cefoxitin Sodium 1 gm/ Premix 50 mls @ 100 mls/hr IV ONETIME [facility] Lactated Ringer's (Ringers, Lactated) 1,000 mls @ 125 mls/hr IV ASDIRECTED [facility] Last Admin: 12/29/17 10:41 Dose: 125 mls/hr Lactated Ringer's (Ringers, Lactated) 1,000 mls @ 125 mls/hr IV ASDIRECTED [facility] Last Admin: 12/29/17 01:45 Dose: 125 mls/hr Metoclopramide HCl (Reglan) 10 mg IV Q6H [facility] Last Admin: 12/29/17 08:15 Dose: 10 mg Metoprolol Succinate (Toprol Xl) 25 mg PO DAILY [facility] Last Admin: 12/29/17 08:15 Dose: 25 mg Morphine Sulfate (Morphine Auricular Detoxification Specialist 30 Mg In 30 Ml) 30 mg IV ASDIRECTED [facility]; Protocol Ondansetron HCl (Zofran) 4 mg IVPUSH Q6H PRN PRN Reason: Nausea/Vomiting Sodium Chloride (Saline Flush) 10 ml FLUSH ASDIRECTED PRN PRN Reason: Keep Vein Open Sodium Chloride (Saline Flush) 2.5 ml FLUSH ASDIRECTED PRN PRN Reason: Keep Vein Open Discontinued Medications Bupivacaine HCl (Marcaine 0.5%) Confirm Administered Dose 120 ml .ROUTE .STK- MED ONE Stop: 12/27/17 12:41 Cefazolin Sodium (Ancef) Confirm Administered Dose 1 gm .ROUTE .STK-MED ONE Stop: 12/27/17 12:41 Ephedrine Sulfate (Ephedrine Sulfate) Confirm Administered Dose 50 mg .ROUTE .STK-MED ONE Stop: 12/27/17 12:58 Fentanyl (Sublimaze) Confirm Administered Dose 250 mcg .ROUTE .STK-MED ONE Stop: 12/27/17 12:58 Fentanyl (Sublimaze) 50 mcg IVPUSH Q5M PRN PRN Reason: Pain (severe 7-10) Stop: 12/28/17 14:26 Glycopyrrolate (Robinul) Confirm Administered Dose 0.2 mg .ROUTE .STK-MED ONE Stop: 12/27/17 13:26 Glycopyrrolate (Robinul) Confirm Administered Dose 0.4 mg .ROUTE .STK-MED ONE Stop: 12/27/17 13:56 Hydromorphone HCl (Dilaudid) Confirm Administered Dose 2 mg .ROUTE .STK-MED ONE Stop: 12/27/17 14:10 Hyoscyamine (Hyomax-Sl) 0.125 mg SL ONETIME ONE Stop: 12/27/17 09:56 Last Admin: 12/27/17 10:03 Dose: 0.125 mg Sodium Chloride (Normal Saline) 1,000 mls @ 999 mls/hr IV .Bolus ONE Stop: 12/27/17 09:25 Last Admin: 12/27/17 08:52 Dose: 999 mls/hr Sodium Chloride (Normal Saline) Confirm Administered Dose 20 mls @ as directed .ROUTE .STK-MED ONE Stop: 12/27/17 12:58 Iopamidol (Isovue Multipack-370 (76%)) 100 ml IVPUSH ONETIME STA Stop: 12/27/17 11:18 Last Admin: 12/27/17 11:25 Dose: 100 ml Lidocaine (Xylocaine-Mpf 2%) Confirm Administered Dose 5 ml .ROUTE .STK-MED ONE Stop: 12/27/17 12:58 Midazolam HCl (Versed 1 Mg/Ml) Confirm Administered Dose 2 mg .ROUTE .STK-MED ONE Stop: 12/27/17 12:58 Neostigmine Methylsulfate (Neostigmine) Confirm Administered Dose 5 mg .ROUTE .STK-MED ONE Stop: 12/27/17 13:56 Ondansetron HCl (Zofran) Confirm Administered Dose 4 mg .ROUTE .STK-MED ONE Stop: 12/27/17 12:58 Propofol (Diprivan 20 Ml) Confirm Administered Dose 200 mg .ROUTE .STK-MED ONE Stop: 12/27/17 12:58 Rocuronium [place] (Zemuron) Confirm Administered Dose 100 mg .ROUTE .STK-MED ONE Stop: 12/27/17 12:58 Succinylcholine Chloride (Quelicin) Confirm Administered Dose 200 mg .ROUTE .STK -MED ONE Stop: 12/27/17 12:58 - Exam Wound/Incisions: Healing Well, No Drainage General: Alert, Oriented, Cooperative, Mild Distress HEENT: Pupils Equal, Pupils Reactive, EOMI. No: Scleral Icterus Neck: Supple Lungs: Clear to Auscultation, Normal Respiratory Effort Cardiovascular: Regular Rate, Regular Rhythm. No: Tachycardia GI/Abdominal Exam: Normal Bowel Sounds, Soft, Non-Tender, Other (Dressings removed, midline incision clean and dry. Minimal bruising.). 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 SNOMED Code(s): 884156986 Code(s): K56.50 - INTESTNL ADHESIONS, UNSP TO PARTIAL VERSUS COMPLETE OBST Status: Acute Priority: High Current Visit: Yes (2) Small bowel obstruction with strangulation or infarction SNOMED Code(s): 247099732 Code(s): OMN5100 - Status: Acute Priority: High Current Visit: Yes (3) Abdominal pain of unknown cause SNOMED Code(s): 192188065 Code(s): R10.9 - UNSPECIFIED ABDOMINAL PAIN Status: Acute Priority: High Current Visit: No - Problem List Review Problem List Initiated/Reviewed/Updated: Yes - My Orders Last 24 Hours: Active Orders 24 hr Category Date Time Status Metoprolol Succinate [Toprol XL] Med 12/28/17 16:15 Active 25 mg PO DAILY Medication Orders Benzocaine/Menthol (Cepacol Sore Throat) 1 lozenge MUCMEM ASDIRECTED PRN PRN Reason: Sore Throat Last Admin: 12/28/17 15:53 Dose: 1 lozenge Admin: 12/28/17 10:05 Dose: 1 lozenge Admin: 12/27/17 23:48 Dose: 1 lozenge Admin: 12/27/17 18:49 Dose: 1 lozenge Cefoxitin Sodium 1 gm/ Premix 50 mls @ 100 mls/hr IV ONETIME [facility] Lactated Ringer's (Ringers, Lactated) 1,000 mls @ 125 mls/hr IV ASDIRECTED [facility] Last Admin: 12/29/17 10:41 Dose: 125 mls/hr Infusion: 12/29/17 01:47 Dose: 125 mls/hr Admin: 12/28/17 17:47 Dose: 125 mls/hr Infusion: 12/28/17 17:27 Dose: 125 mls/hr Admin: 12/28/17 09:27 Dose: 125 mls/hr Lactated Ringer's (Ringers, Lactated) 1,000 mls @ 125 mls/hr IV ASDIRECTED [facility] Last Admin: 12/29/17 01:45 Dose: 125 mls/hr Infusion: 12/28/17 09:00 Dose: 125 mls/hr Admin: 12/28/17 01:00 Dose: 125 mls/hr Infusion: 12/27/17 23:50 Dose: 125 mls/hr Admin: 12/27/17 15:50 Dose: 125 mls/hr Metoclopramide HCl (Reglan) 10 mg IV Q6H [facility] Last Admin: 12/29/17 08:15 Dose: 10 mg Admin: 12/29/17 01:46 Dose: 10 mg Admin: 12/28/17 20:18 Dose: 10 mg Admin: 12/28/17 15:43 Dose: 10 mg Admin: 12/28/17 09:27 Dose: 10 mg Admin: 12/28/17 02:51 Dose: 10 mg Admin: 12/27/17 21:02 Dose: 10 mg Admin: 12/27/17 15:47 Dose: 10 mg Metoprolol Succinate (Toprol Xl) 25 mg PO DAILY [facility] Last Admin: 12/29/17 08:15 Dose: 25 mg Admin: 12/28/17 17:43 Dose: 25 mg Morphine Sulfate (Morphine Auricular Detoxification Specialist 30 Mg In 30 Ml) 30 mg IV ASDIRECTED [facility]; Protocol Ondansetron HCl (Zofran) 4 mg IVPUSH Q6H PRN PRN Reason: Nausea/Vomiting Sodium Chloride (Saline Flush) 10 ml FLUSH ASDIRECTED PRN PRN Reason: Keep Vein Open Sodium Chloride (Saline Flush) 2.5 ml FLUSH ASDIRECTED PRN PRN Reason: Keep Vein Open - Assessment Assessment (Free Text/Narrative):: Patient remains hemodynamically stable. Denies flatus/BM today. Tolerating po diet but not hungry yet. - Plan Plan (Free Text/Narrative):: Increase activity. Continue IV fluids.
[2017-12-30] MEDS: Lactated Ringers 1,000 ML IV SCH ×3 (02:25→18:10)
[2017-12-30] MEDS: Metoclopramide 10 MG/2 ML SDV IV SCH ×4 (02:27→21:07)
[2017-12-30] MEDS ORDERED: Bisacodyl 10 MG Supp RECTAL ONE (08:13)
--- NOTE | 2017-12-30 08:17 | PCM.SURGPN ---
- General Info Date of Service: 12/30/17 POD#: 3 Post-Op Diagnosis: Closed-loop small bowel obstruction Functional Status: Reports: Pain Controlled, Tolerating Diet, Ambulating, Urinating, Incentive Spirometry. Denies: New Symptoms - Review of Systems General: Reports: Fatigue. Denies: Fever, Weakness, Malaise, Chills HEENT: Reports: No Symptoms Pulmonary: Denies: Shortness of Breath, Cough Cardiovascular: Denies: Chest Pain Gastrointestinal: Reports: Abdominal Pain (Incisional). Denies: Difficulty Swallowing, Flatus, Nausea, Vomiting 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: Denies: Dysuria, Frequency, Burning Musculoskeletal: Reports: No Symptoms Skin: Reports: No Symptoms Neurological: Reports: No Symptoms Psychiatric: Reports: No Symptoms - Patient Data Vitals - Most Recent: Last Vital Signs Temp 98.6 F 12/30/17 03:30 Pulse 87 12/30/17 03:30 Resp 18 12/30/17 03:30 BP 118/56 L 12/30/17 03:30 Pulse Ox 91 L 12/30/17 03:30 Weight - Most Recent: 120 lb I&O - Last 24 Hours: Intake & Output 12/29/17 12/30/17 12/30/17 19:59 03:59 11:59 Intake Total 2528 1300 600 Output Total 1500 1200 Balance 1028 1300 -600 Med Orders - Current: Current Medications Benzocaine/Menthol (Cepacol Sore Throat) 1 lozenge MUCMEM ASDIRECTED PRN PRN Reason: Sore Throat Last Admin: 12/28/17 15:53 Dose: 1 lozenge Cefoxitin Sodium 1 gm/ Premix 50 mls @ 100 mls/hr IV ONETIME [facility] Lactated Ringer's (Ringers, Lactated) 1,000 mls @ 125 mls/hr IV ASDIRECTED [facility] Last Admin: 12/30/17 02:25 Dose: 125 mls/hr Lactated Ringer's (Ringers, Lactated) 1,000 mls @ 125 mls/hr IV ASDIRECTED [facility] Last Admin: 12/29/17 01:45 Dose: 125 mls/hr Metoclopramide HCl (Reglan) 10 mg IV Q6H [facility] Last Admin: 12/30/17 02:27 Dose: 10 mg Metoprolol Succinate (Toprol Xl) 25 mg PO DAILY [facility] Last Admin: 12/29/17 08:15 Dose: 25 mg Morphine Sulfate (Morphine Splitter Head 30 Mg In 30 Ml) 30 mg IV ASDIRECTED [facility]; Protocol Ondansetron HCl (Zofran) 4 mg IVPUSH Q6H PRN PRN Reason: Nausea/Vomiting Sodium Chloride (Saline Flush) 10 ml FLUSH ASDIRECTED PRN PRN Reason: Keep Vein Open Sodium Chloride (Saline Flush) 2.5 ml FLUSH ASDIRECTED PRN PRN Reason: Keep Vein Open Discontinued Medications Bupivacaine HCl (Marcaine 0.5%) Confirm Administered Dose 120 ml .ROUTE .STK- MED ONE Stop: 12/27/17 12:41 Cefazolin Sodium (Ancef) Confirm Administered Dose 1 gm .ROUTE .STK-MED ONE Stop: 12/27/17 12:41 Ephedrine Sulfate (Ephedrine Sulfate) Confirm Administered Dose 50 mg .ROUTE .STK-MED ONE Stop: 12/27/17 12:58 Fentanyl (Sublimaze) Confirm Administered Dose 250 mcg .ROUTE .STK-MED ONE Stop: 12/27/17 12:58 Fentanyl (Sublimaze) 50 mcg IVPUSH Q5M PRN PRN Reason: Pain (severe 7-10) Stop: 12/28/17 14:26 Glycopyrrolate (Robinul) Confirm Administered Dose 0.2 mg .ROUTE .STK-MED ONE Stop: 12/27/17 13:26 Glycopyrrolate (Robinul) Confirm Administered Dose 0.4 mg .ROUTE .STK-MED ONE Stop: 12/27/17 13:56 Hydromorphone HCl (Dilaudid) Confirm Administered Dose 2 mg .ROUTE .STK-MED ONE Stop: 12/27/17 14:10 Hyoscyamine (Hyomax-Sl) 0.125 mg SL ONETIME ONE Stop: 12/27/17 09:56 Last Admin: 12/27/17 10:03 Dose: 0.125 mg Sodium Chloride (Normal Saline) 1,000 mls @ 999 mls/hr IV .Bolus ONE Stop: 12/27/17 09:25 Last Admin: 12/27/17 08:52 Dose: 999 mls/hr Sodium Chloride (Normal Saline) Confirm Administered Dose 20 mls @ as directed .ROUTE .STK-MED ONE Stop: 12/27/17 12:58 Iopamidol (Isovue Multipack-370 (76%)) 100 ml IVPUSH ONETIME [facility] Stop: 12/27/17 11:18 Last Admin: 12/27/17 11:25 Dose: 100 ml Lidocaine (Xylocaine-Mpf 2%) Confirm Administered Dose 5 ml .ROUTE .STK-MED ONE Stop: 12/27/17 12:58 Midazolam HCl (Versed 1 Mg/Ml) Confirm Administered Dose 2 mg .ROUTE .STK-MED ONE Stop: 12/27/17 12:58 Neostigmine Methylsulfate (Neostigmine) Confirm Administered Dose 5 mg .ROUTE .STK-MED ONE Stop: 12/27/17 13:56 Ondansetron HCl (Zofran) Confirm Administered Dose 4 mg .ROUTE .STK-MED ONE Stop: 12/27/17 12:58 Propofol (Diprivan 20 Ml) Confirm Administered Dose 200 mg .ROUTE .STK-MED ONE Stop: 12/27/17 12:58 Rocuronium [place] (Zemuron) Confirm Administered Dose 100 mg .ROUTE .STK-MED ONE Stop: 12/27/17 12:58 Succinylcholine Chloride (Quelicin) Confirm Administered Dose 200 mg .ROUTE .STK -MED ONE Stop: 12/27/17 12:58 - Exam Wound/Incisions: Healing Well, No Drainage Quality Assessment: DVT Prophylaxis. No: Supplemental Oxygen, Urine Catheter General: Alert, Oriented, Cooperative HEENT: Pupils Equal, Pupils Reactive. No: Scleral Icterus Neck: Supple, Trachea Midline Lungs: Clear to Auscultation, Normal Respiratory Effort Cardiovascular: Regular Rate, Regular Rhythm, No Murmurs GI/Abdominal Exam: Normal Bowel Sounds, Soft, Non-Tender, No Mass. No: Guarding , Rigid, Rebound Extremities: Normal Inspection, Normal Range of Motion Skin: Warm, Dry, Intact Neurological: No New Focal Deficit Psy/Mental Status: Alert, Normal Affect, Normal Mood - Problem List & Annotations (1) Obstruction of small intestine due to peritoneal adhesion SNOMED Code(s): 820825329 Code(s): K56.50 - INTESTNL ADHESIONS, UNSP TO PARTIAL VERSUS COMPLETE OBST Status: Acute Priority: High Current Visit: Yes (2) Small bowel obstruction with strangulation or infarction SNOMED Code(s): 504662544 Code(s): NEJ3197 - Status: Acute Priority: High Current Visit: Yes (3) Abdominal pain of unknown cause SNOMED Code(s): 345112629 Code(s): R10.9 - UNSPECIFIED ABDOMINAL PAIN Status: Acute Priority: High Current Visit: No - Problem List Review Problem List Initiated/Reviewed/Updated: Yes - My Orders Last 24 Hours: Active Orders 24 hr Category Date Time Status Acetaminophen/HYDROcodone [[place] 325-5 MG] Med 12/30/17 08:12 Ordered 1 tab PO Q6H PRN Bisacodyl [Dulcolax] Med 12/30/17 08:13 Once 10 mg RECTAL ONETIME ONE Morphine Med 12/30/17 08:12 Ordered See Dose Instructions IVPUSH Q1H PRN Medication Orders Benzocaine/Menthol (Cepacol Sore Throat) 1 lozenge MUCMEM ASDIRECTED PRN PRN Reason: Sore Throat Last Admin: 12/28/17 15:53 Dose: 1 lozenge Admin: 12/28/17 10:05 Dose: 1 lozenge Admin: 12/27/17 23:48 Dose: 1 lozenge Admin: 12/27/17 18:49 Dose: 1 lozenge Cefoxitin Sodium 1 gm/ Premix 50 mls @ 100 mls/hr IV ONETIME [facility] Lactated Ringer's (Ringers, Lactated) 1,000 mls @ 125 mls/hr IV ASDIRECTED [facility] Last Admin: 12/30/17 02:25 Dose: 125 mls/hr Infusion: 12/30/17 02:25 Dose: 125 mls/hr Admin: 12/29/17 18:32 Dose: 125 mls/hr Infusion: 12/29/17 18:32 Dose: 125 mls/hr Admin: 12/29/17 10:41 Dose: 125 mls/hr Infusion: 12/29/17 01:47 Dose: 125 mls/hr Admin: 12/28/17 17:47 Dose: 125 mls/hr Infusion: 12/28/17 17:27 Dose: 125 mls/hr Admin: 12/28/17 09:27 Dose: 125 mls/hr Lactated Ringer's (Ringers, Lactated) 1,000 mls @ 125 mls/hr IV ASDIRECTED [facility] Last Admin: 12/29/17 01:45 Dose: 125 mls/hr Infusion: 12/28/17 09:00 Dose: 125 mls/hr Admin: 12/28/17 01:00 Dose: 125 mls/hr Infusion: 12/27/17 23:50 Dose: 125 mls/hr Admin: 12/27/17 15:50 Dose: 125 mls/hr Metoclopramide HCl (Reglan) 10 mg IV Q6H [facility] Last Admin: 12/30/17 02:27 Dose: 10 mg Admin: 12/29/17 21:38 Dose: 10 mg Admin: 12/29/17 14:47 Dose: 10 mg Admin: 12/29/17 08:15 Dose: 10 mg Admin: 12/29/17 01:46 Dose: 10 mg Admin: 12/28/17 20:18 Dose: 10 mg Admin: 12/28/17 15:43 Dose: 10 mg Admin: 12/28/17 09:27 Dose: 10 mg Admin: 12/28/17 02:51 Dose: 10 mg Admin: 12/27/17 21:02 Dose: 10 mg Admin: 12/27/17 15:47 Dose: 10 mg Metoprolol Succinate (Toprol Xl) 25 mg PO DAILY [facility] Last Admin: 12/29/17 08:15 Dose: 25 mg Admin: 12/28/17 17:43 Dose: 25 mg Morphine Sulfate (Morphine Splitter Head 30 Mg In 30 Ml) 30 mg IV ASDIRECTED [facility]; Protocol Ondansetron HCl (Zofran) 4 mg IVPUSH Q6H PRN PRN Reason: Nausea/Vomiting Sodium Chloride (Saline Flush) 10 ml FLUSH ASDIRECTED PRN PRN Reason: Keep Vein Open Sodium Chloride (Saline Flush) 2.5 ml FLUSH ASDIRECTED PRN PRN Reason: Keep Vein Open - Assessment Assessment (Free Text/Narrative):: Patient remains hemodynamically stable. No N/V. No flatus or BM yet. - Plan Plan (Free Text/Narrative):: Dulcolax suppository today. Continue with increased activity. We'll continue full liquid diet. We'll discontinue the [employer] pump and converted to oral pain medications with when prn morphine for breakthrough pain.
[2017-12-30] MEDS: Metoprolol Succinate 25 MG Tab.ER PO SCH (08:51)
[2017-12-30] MEDS: Acetaminophen/HYDROcodone 325-5 MG Tab PO PRN ×2 (10:31→17:50)
[2017-12-30] MEDS: Morphine 10 MG/ML Syringe IVPUSH PRN (21:38)
[2017-12-31] MEDS: Metoclopramide 10 MG/2 ML SDV IV SCH ×4 (01:49→20:27)
[2017-12-31] MEDS: Lactated Ringers 1,000 ML IV SCH ×3 (01:51→18:43)
[2017-12-31] MEDS: Acetaminophen/HYDROcodone 325-5 MG Tab PO PRN ×3 (06:13→18:13)
[2017-12-31] MEDS ORDERED: Bisacodyl 10 MG Supp RECTAL ONE (07:48)
--- NOTE | 2017-12-31 07:53 | PCM.SURGPN ---
- General Info Date of Service: 12/31/17 POD#: 4 Functional Status: Reports: Pain Controlled, Tolerating Diet, Ambulating, Urinating. Denies: New Symptoms - Review of Systems General: Denies: Fever, Weakness, Fatigue, Malaise HEENT: Reports: No Symptoms Pulmonary: Denies: Shortness of Breath, Cough Cardiovascular: Reports: No Symptoms Gastrointestinal: Reports: Flatus. Denies: Abdominal Pain, Diarrhea, Nausea, Vomiting 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: Denies: Dysuria, Frequency Musculoskeletal: Reports: No Symptoms Skin: Reports: No Symptoms Neurological: Reports: No Symptoms Psychiatric: Reports: No Symptoms - Patient Data Vitals - Most Recent: Last Vital Signs Temp 99.8 F 12/31/17 04:00 Pulse 87 12/31/17 04:00 Resp 18 12/31/17 04:00 BP 127/67 12/31/17 04:00 Pulse Ox 95 12/31/17 04:00 Weight - Most Recent: 120 lb I&O - Last 24 Hours: Intake & Output 12/30/17 12/31/17 12/31/17 19:59 03:59 11:59 Intake Total 2792 1714 Output Total 1400 900 Balance 1392 814 Med Orders - Current: Current Medications Hydrocodone Bitart/Acetaminophen ([place] 325-5 Mg) 1 tab PO Q6H PRN PRN Reason: Pain (moderate 4-6) Last Admin: 12/31/17 06:13 Dose: 1 tab Benzocaine/Menthol (Cepacol Sore Throat) 1 lozenge MUCMEM ASDIRECTED PRN PRN Reason: Sore Throat Last Admin: 12/28/17 15:53 Dose: 1 lozenge Cefoxitin Sodium 1 gm/ Premix 50 mls @ 100 mls/hr IV ONETIME [facility] Lactated Ringer's (Ringers, Lactated) 1,000 mls @ 125 mls/hr IV ASDIRECTED [facility] Last Admin: 12/31/17 01:51 Dose: 125 mls/hr Lactated Ringer's (Ringers, Lactated) 1,000 mls @ 125 mls/hr IV ASDIRECTED [facility] Last Admin: 12/29/17 01:45 Dose: 125 mls/hr Metoclopramide HCl (Reglan) 10 mg IV Q6H [facility] Last Admin: 12/31/17 01:49 Dose: 10 mg Metoprolol Succinate (Toprol Xl) 25 mg PO DAILY [facility] Last Admin: 12/30/17 08:51 Dose: 25 mg Morphine Sulfate (Morphine) 1 - 5 mg IVPUSH Q30M PRN PRN Reason: Pain (severe 7-10) Last Admin: 12/30/17 21:38 Dose: 4 mg Ondansetron HCl (Zofran) 4 mg IVPUSH Q6H PRN PRN Reason: Nausea/Vomiting Sodium Chloride (Saline Flush) 10 ml FLUSH ASDIRECTED PRN PRN Reason: Keep Vein Open Sodium Chloride (Saline Flush) 2.5 ml FLUSH ASDIRECTED PRN PRN Reason: Keep Vein Open Discontinued Medications Bisacodyl (Dulcolax) 10 mg RECTAL ONETIME ONE Stop: 12/30/17 08:14 Last Admin: 12/30/17 08:51 Dose: 10 mg Bupivacaine HCl (Marcaine 0.5%) Confirm Administered Dose 120 ml .ROUTE .STK- MED ONE Stop: 12/27/17 12:41 Cefazolin Sodium (Ancef) Confirm Administered Dose 1 gm .ROUTE .STK-MED ONE Stop: 12/27/17 12:41 Ephedrine Sulfate (Ephedrine Sulfate) Confirm Administered Dose 50 mg .ROUTE .STK-MED ONE Stop: 12/27/17 12:58 Fentanyl (Sublimaze) Confirm Administered Dose 250 mcg .ROUTE .STK-MED ONE Stop: 12/27/17 12:58 Fentanyl (Sublimaze) 50 mcg IVPUSH Q5M PRN PRN Reason: Pain (severe 7-10) Stop: 12/28/17 14:26 Glycopyrrolate (Robinul) Confirm Administered Dose 0.2 mg .ROUTE .STK-MED ONE Stop: 12/27/17 13:26 Glycopyrrolate (Robinul) Confirm Administered Dose 0.4 mg .ROUTE .STK-MED ONE Stop: 12/27/17 13:56 Hydromorphone HCl (Dilaudid) Confirm Administered Dose 2 mg .ROUTE .STK-MED ONE Stop: 12/27/17 14:10 Hyoscyamine (Hyomax-Sl) 0.125 mg SL ONETIME ONE Stop: 12/27/17 09:56 Last Admin: 12/27/17 10:03 Dose: 0.125 mg Sodium Chloride (Normal Saline) 1,000 mls @ 999 mls/hr IV .Bolus ONE Stop: 12/27/17 09:25 Last Admin: 12/27/17 08:52 Dose: 999 mls/hr Sodium Chloride (Normal Saline) Confirm Administered Dose 20 mls @ as directed .ROUTE .STK-MED ONE Stop: 12/27/17 12:58 Iopamidol (Isovue Multipack-370 (76%)) 100 ml IVPUSH ONETIME [facility] Stop: 12/27/17 11:18 Last Admin: 12/27/17 11:25 Dose: 100 ml Lidocaine (Xylocaine-Mpf 2%) Confirm Administered Dose 5 ml .ROUTE .STK-MED ONE Stop: 12/27/17 12:58 Midazolam HCl (Versed 1 Mg/Ml) Confirm Administered Dose 2 mg .ROUTE .STK-MED ONE Stop: 12/27/17 12:58 Morphine Sulfate (Morphine Review Specialist 30 Mg In 30 Ml) 30 mg IV ASDIRECTED [facility]; Protocol Neostigmine Methylsulfate (Neostigmine) Confirm Administered Dose 5 mg .ROUTE .STK-MED ONE Stop: 12/27/17 13:56 Ondansetron HCl (Zofran) Confirm Administered Dose 4 mg .ROUTE .STK-MED ONE Stop: 12/27/17 12:58 Propofol (Diprivan 20 Ml) Confirm Administered Dose 200 mg .ROUTE .STK-MED ONE Stop: 12/27/17 12:58 Rocuronium [place] (Zemuron) Confirm Administered Dose 100 mg .ROUTE .STK-MED ONE Stop: 12/27/17 12:58 Succinylcholine Chloride (Quelicin) Confirm Administered Dose 200 mg .ROUTE .STK -MED ONE Stop: 12/27/17 12:58 - Exam Wound/Incisions: Healing Well, Drainage (minimal serosanguineous) General: Alert, Oriented, Cooperative, Mild Distress HEENT: Pupils Equal, Pupils Reactive, EOMI. No: Scleral Icterus Neck: Supple, Trachea Midline Lungs: Clear to Auscultation, Normal Respiratory Effort Cardiovascular: Regular Rate, Regular Rhythm. No: Tachycardia GI/Abdominal Exam: Normal Bowel Sounds, Soft, Non-Tender, Distended. 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 SNOMED Code(s): 603046453 Code(s): K56.50 - INTESTNL ADHESIONS, UNSP TO PARTIAL VERSUS COMPLETE OBST Status: Acute Priority: High Current Visit: Yes (2) Small bowel obstruction with strangulation or infarction SNOMED Code(s): 152309604 Code(s): HNB4438 - Status: Acute Priority: High Current Visit: Yes (3) Abdominal pain of unknown cause SNOMED Code(s): 482805236 Code(s): R10.9 - UNSPECIFIED ABDOMINAL PAIN Status: Acute Priority: High Current Visit: No - Problem List Review Problem List Initiated/Reviewed/Updated: Yes - My Orders Last 24 Hours: Active Orders 24 hr Category Date Time Status May Shower [RC] ASDIRECTED Care 12/31/17 07:49 Ordered BASIC METABOLIC PANEL,BMP [CHEM] AM Lab 01/01/18 05:11 Ordered CBC WITH AUTO DIFF [HEME] AM Lab 01/01/18 05:11 Ordered Acetaminophen/HYDROcodone [[place] 325-5 MG] Med 12/30/17 08:12 Active 1 tab PO Q6H PRN Bisacodyl [Dulcolax] Med 12/31/17 07:48 Once 10 mg RECTAL ONETIME ONE Morphine Med 12/30/17 08:12 Active 1 - 5 mg IVPUSH Q30M PRN Medication Orders Hydrocodone Bitart/Acetaminophen ([place] 325-5 Mg) 1 tab PO Q6H PRN PRN Reason: Pain (moderate 4-6) Last Admin: 12/31/17 06:13 Dose: 1 tab Admin: 12/30/17 17:50 Dose: 1 tab Admin: 12/30/17 10:31 Dose: 1 tab Benzocaine/Menthol (Cepacol Sore Throat) 1 lozenge MUCMEM ASDIRECTED PRN PRN Reason: Sore Throat Last Admin: 12/28/17 15:53 Dose: 1 lozenge Admin: 12/28/17 10:05 Dose: 1 lozenge Admin: 12/27/17 23:48 Dose: 1 lozenge Admin: 12/27/17 18:49 Dose: 1 lozenge Cefoxitin Sodium 1 gm/ Premix 50 mls @ 100 mls/hr IV ONETIME [facility] Lactated Ringer's (Ringers, Lactated) 1,000 mls @ 125 mls/hr IV ASDIRECTED [facility] Last Admin: 12/31/17 01:51 Dose: 125 mls/hr Infusion: 12/31/17 01:51 Dose: 125 mls/hr Admin: 12/30/17 18:10 Dose: 125 mls/hr Infusion: 12/30/17 18:10 Dose: 125 mls/hr Admin: 12/30/17 10:30 Dose: 125 mls/hr Infusion: 12/30/17 10:25 Dose: 125 mls/hr Admin: 12/30/17 02:25 Dose: 125 mls/hr Infusion: 12/30/17 02:25 Dose: 125 mls/hr Admin: 12/29/17 18:32 Dose: 125 mls/hr Infusion: 12/29/17 18:32 Dose: 125 mls/hr Admin: 12/29/17 10:41 Dose: 125 mls/hr Infusion: 12/29/17 01:47 Dose: 125 mls/hr Admin: 12/28/17 17:47 Dose: 125 mls/hr Infusion: 12/28/17 17:27 Dose: 125 mls/hr Admin: 12/28/17 09:27 Dose: 125 mls/hr Lactated Ringer's (Ringers, Lactated) 1,000 mls @ 125 mls/hr IV ASDIRECTED [facility] Last Admin: 12/29/17 01:45 Dose: 125 mls/hr Infusion: 12/28/17 09:00 Dose: 125 mls/hr Admin: 12/28/17 01:00 Dose: 125 mls/hr Infusion: 12/27/17 23:50 Dose: 125 mls/hr Admin: 12/27/17 15:50 Dose: 125 mls/hr Metoclopramide HCl (Reglan) 10 mg IV Q6H [facility] Last Admin: 12/31/17 01:49 Dose: 10 mg Admin: 12/30/17 21:07 Dose: 10 mg Admin: 12/30/17 15:03 Dose: 10 mg Admin: 06/30/18 08:51 Dose: 10 mg Admin: 12/30/17 02:27 Dose: 10 mg Admin: 12/29/17 21:38 Dose: 10 mg Admin: 12/29/17 14:47 Dose: 10 mg Admin: 12/29/17 08:15 Dose: 10 mg Admin: 12/29/17 01:46 Dose: 10 mg Admin: 12/28/17 20:18 Dose: 10 mg Admin: 12/28/17 15:43 Dose: 10 mg Admin: 12/28/17 09:27 Dose: 10 mg Admin: 12/28/17 02:51 Dose: 10 mg Admin: 12/27/17 21:02 Dose: 10 mg Admin: 12/27/17 15:47 Dose: 10 mg Metoprolol Succinate (Toprol Xl) 25 mg PO DAILY [facility] Last Admin: 12/30/17 08:51 Dose: 25 mg Admin: 12/29/17 08:15 Dose: 25 mg Admin: 12/28/17 17:43 Dose: 25 mg Morphine Sulfate (Morphine) 1 - 5 mg IVPUSH Q30M PRN PRN Reason: Pain (severe 7-10) Last Admin: 12/30/17 21:38 Dose: 4 mg Ondansetron HCl (Zofran) 4 mg IVPUSH Q6H PRN PRN Reason: Nausea/Vomiting Sodium Chloride (Saline Flush) 10 ml FLUSH ASDIRECTED PRN PRN Reason: Keep Vein Open Sodium Chloride (Saline Flush) 2.5 ml FLUSH ASDIRECTED PRN PRN Reason: Keep Vein Open - Assessment Assessment (Free Text/Narrative):: Patient still c/o being distended. Is passing gas and has had a small BM. Denies N/V. Trying to find a balance with pain medications. - Plan Plan (Free Text/Narrative):: Dulcolax suppository again today. Continue to increase activity. Check labs in am.
[2017-12-31] MEDS: Metoprolol Succinate 25 MG Tab.ER PO SCH (08:11)
[2017-12-31] MEDS: Morphine 10 MG/ML Syringe IVPUSH PRN ×3 (09:09→13:36)
[2018-01-01] MEDS: Metoclopramide 10 MG/2 ML SDV IV SCH ×4 (02:12→21:20)
[2018-01-01] MEDS: Lactated Ringers 1,000 ML IV SCH ×3 (02:12→19:26)
[2018-01-01] MEDS: Acetaminophen/HYDROcodone 325-5 MG Tab PO PRN ×4 (02:12→22:15)
[2018-01-01 06:16] LABS: CHLORIDE,CL 107 mmol/L (98-107); SODIUM,NA 141 mmol/L (136-145)
[2018-01-01] MEDS: Metoprolol Succinate 25 MG Tab.ER PO SCH (08:22)
--- NOTE | 2018-01-01 12:32 | PCM.SURGPN ---
- General Info Date of Service: 01/01/18 POD#: 5 Post-Op Diagnosis: closed loop small bowel obstruction Functional Status: Reports: Pain Controlled, Tolerating Diet, Ambulating, Urinating - Review of Systems General: Reports: Weakness, Fatigue, Appetite (slowly improving). Denies: Fever , Malaise, Chills, Night Sweats HEENT: Denies: Headaches, Visual Changes Pulmonary: Denies: Shortness of Breath, Pleuritic Chest Pain, Cough, Wheezing Cardiovascular: Denies: Chest Pain, Palpitations Gastrointestinal: Reports: Abdominal Pain (incisional only), Constipation, Decreased Appetite, Flatus. Denies: Diarrhea, Difficulty Swallowing, Hematochezia, Melena, Nausea, Vomiting 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: Denies: Dysuria, Frequency, Burning Musculoskeletal: Reports: No Symptoms Skin: Reports: No Symptoms Neurological: Reports: No Symptoms Psychiatric: Reports: No Symptoms - Patient Data Vitals - Most Recent: Last Vital Signs Temp 98.6 F 01/01/18 12:00 Pulse 84 01/01/18 12:00 Resp 20 01/01/18 12:00 BP 129/74 01/01/18 12:00 Pulse Ox 94 L 01/01/18 12:00 Weight - Most Recent: 120 lb I&O - Last 24 Hours: Intake & Output 01/01/18 01/01/18 01/01/18 03:59 11:59 19:59 Intake Total 200 Output Total 1100 Balance -900 Lab Results Last 24 Hrs: Laboratory Results - last 24 hr 01/01/18 01/01/18 Range/Units 05:26 05:26 WBC 5.76 (4.0-11.0) K/uL RBC 3.15 L (4.30-5.90) M/uL Hgb 9.5 L (12.0-16.0) g/dL Hct 29.0 L (36.0-46.0) % MCV 92.1 (80.0-98.0) fL MCH 30.2 (27.0-32.0) pg MCHC 32.8 (31.0-37.0) g/dL RDW Std Deviation 41.4 (28.0-62.0) fl RDW Coeff of Arianne 12 (11.0-15.0) % Plt Count 193 (150-400) K/uL MPV 9.70 (7.40-12.00) fL Neut % (Auto) 69.3 (48.0-80.0) % Lymph % (Auto) 17.4 (16.0-40.0) % Dodge % (Auto) 9.0 (0.0-15.0) % Eos % (Auto) 4.0 (0.0-7.0) % Baso % (Auto) 0.3 (0.0-1.5) % Neut # (Auto) 4.0 (1.4-5.7) K/uL Lymph # (Auto) 1.0 (0.6-2.4) K/uL Dodge # (Auto) 0.5 (0.0-0.8) K/uL Eos # (Auto) 0.2 (0.0-0.7) K/uL Baso # (Auto) 0.0 (0.0-0.1) K/uL Nucleated RBC % 0.0 /100WBC Nucleated RBCs # 0 K/uL Sodium 141 (136-145) mmol/L Potassium 3.2 L (3.5-5.1) mmol/L Chloride 107 (98-107) mmol/L Carbon Dioxide 28.5 (21.0-32.0) mmol/L BUN 7 (7.0-18.0) mg/dL Creatinine 0.7 (0.6-1.0) mg/dL Est Cr Clr Drug Dosing 67.01 mL/min Estimated GFR (MDRD) > 60.0 ml/min Glucose 99 (74-106) mg/dL Calcium 7.8 L (8.5-10.1) mg/dL Med Orders - Current: Current Medications Hydrocodone Bitart/Acetaminophen ([place] 325-5 Mg) 1 tab PO Q6H PRN PRN Reason: Pain (moderate 4-6) Last Admin: 01/01/18 10:22 Dose: 1 tab Benzocaine/Menthol (Cepacol Sore Throat) 1 lozenge MUCMEM ASDIRECTED PRN PRN Reason: Sore Throat Last Admin: 12/28/17 15:53 Dose: 1 lozenge Cefoxitin Sodium 1 gm/ Premix 50 mls @ 100 mls/hr IV ONETIME CK Lactated Ringer's (Ringers, Lactated) 1,000 mls @ 125 mls/hr IV ASDIRECTED [facility] Last Admin: 01/01/18 10:21 Dose: 125 mls/hr Lactated Ringer's (Ringers, Lactated) 1,000 mls @ 80 mls/hr IV ASDIRECTED [facility] Last Admin: 01/01/18 02:12 Dose: 125 mls/hr Metoclopramide HCl (Reglan) 10 mg IV Q6H [facility] Last Admin: 01/01/18 08:22 Dose: 10 mg Metoprolol Succinate (Toprol Xl) 25 mg PO DAILY [facility] Last Admin: 01/01/18 08:22 Dose: 25 mg Morphine Sulfate (Morphine) 1 - 5 mg IVPUSH Q30M PRN PRN Reason: Pain (severe 7-10) Last Admin: 12/31/17 13:36 Dose: 2 mg Ondansetron HCl (Zofran) 4 mg IVPUSH Q6H PRN PRN Reason: Nausea/Vomiting Sodium Chloride (Saline Flush) 10 ml FLUSH ASDIRECTED PRN PRN Reason: Keep Vein Open Sodium Chloride (Saline Flush) 2.5 ml FLUSH ASDIRECTED PRN PRN Reason: Keep Vein Open Discontinued Medications Bisacodyl (Dulcolax) 10 mg RECTAL ONETIME ONE Stop: 12/30/17 08:14 Last Admin: 12/30/17 08:51 Dose: 10 mg Bisacodyl (Dulcolax) 10 mg RECTAL ONETIME ONE Stop: 12/31/17 07:49 Last Admin: 12/31/17 08:10 Dose: 10 mg Bupivacaine HCl (Marcaine 0.5%) Confirm Administered Dose 120 ml .ROUTE .STK- MED ONE Stop: 12/27/17 12:41 Cefazolin Sodium (Ancef) Confirm Administered Dose 1 gm .ROUTE .STK-MED ONE Stop: 12/27/17 12:41 Ephedrine Sulfate (Ephedrine Sulfate) Confirm Administered Dose 50 mg .ROUTE .STK-MED ONE Stop: 12/27/17 12:58 Fentanyl (Sublimaze) Confirm Administered Dose 250 mcg .ROUTE .STK-MED ONE Stop: 12/27/17 12:58 Fentanyl (Sublimaze) 50 mcg IVPUSH Q5M PRN PRN Reason: Pain (severe 7-10) Stop: 06/28/18 14:26 Glycopyrrolate (Robinul) Confirm Administered Dose 0.2 mg .ROUTE .STK-MED ONE Stop: 12/27/17 13:26 Glycopyrrolate (Robinul) Confirm Administered Dose 0.4 mg .ROUTE .STK-MED ONE Stop: 12/27/17 13:56 Hydromorphone HCl (Dilaudid) Confirm Administered Dose 2 mg .ROUTE .STK-MED ONE Stop: 12/27/17 14:10 Hyoscyamine (Hyomax-Sl) 0.125 mg SL ONETIME ONE Stop: 12/27/17 09:56 Last Admin: 12/27/17 10:03 Dose: 0.125 mg Sodium Chloride (Normal Saline) 1,000 mls @ 999 mls/hr IV .Bolus ONE Stop: 12/27/17 09:25 Last Admin: 12/27/17 08:52 Dose: 999 mls/hr Sodium Chloride (Normal Saline) Confirm Administered Dose 20 mls @ as directed .ROUTE .STK-MED ONE Stop: 12/27/17 12:58 Iopamidol (Isovue Multipack-370 (76%)) 100 ml IVPUSH ONETIME STA Stop: 12/27/17 11:18 Last Admin: 12/27/17 11:25 Dose: 100 ml Lidocaine (Xylocaine-Mpf 2%) Confirm Administered Dose 5 ml .ROUTE .STK-MED ONE Stop: 12/27/17 12:58 Midazolam HCl (Versed 1 Mg/Ml) Confirm Administered Dose 2 mg .ROUTE .STK-MED ONE Stop: 12/27/17 12:58 Morphine Sulfate (Morphine Child Welfare Manager 30 Mg In 30 Ml) 30 mg IV ASDIRECTED CK; Protocol Neostigmine Methylsulfate (Neostigmine) Confirm Administered Dose 5 mg .ROUTE .STK-MED ONE Stop: 12/27/17 13:56 Ondansetron HCl (Zofran) Confirm Administered Dose 4 mg .ROUTE .STK-MED ONE Stop: 12/27/17 12:58 Propofol (Diprivan 20 Ml) Confirm Administered Dose 200 mg .ROUTE .STK-MED ONE Stop: 12/27/17 12:58 Rocuronium Merna (Zemuron) Confirm Administered Dose 100 mg .ROUTE .STK-MED ONE Stop: 12/27/17 12:58 Succinylcholine Chloride (Quelicin) Confirm Administered Dose 200 mg .ROUTE .STK -MED ONE Stop: 12/27/17 12:58 - Exam Wound/Incisions: Healing Well, No Drainage. No: Erythema General: Alert, Oriented, Cooperative, No Acute Distress HEENT: Pupils Equal, Pupils Reactive, EOMI Neck: Supple, Trachea Midline Lungs: Clear to Auscultation, Normal Respiratory Effort Cardiovascular: Regular Rate, Regular Rhythm GI/Abdominal Exam: Normal Bowel Sounds, Soft, Non-Tender, Distended. No: Guarding, Rigid, Rebound, Tender Extremities: Normal Inspection. No: Pedal Edema Skin: Warm, Dry, Intact Neurological: No New Focal Deficit Psy/Mental Status: Alert, Normal Affect, Normal Mood - Problem List & Annotations (1) Obstruction of small intestine due to peritoneal adhesion SNOMED Code(s): 827202461 Code(s): K56.50 - INTESTNL ADHESIONS, UNSP TO PARTIAL VERSUS COMPLETE OBST Status: Acute Priority: High Current Visit: Yes (2) Small bowel obstruction with strangulation or infarction SNOMED Code(s): 345982094 Code(s): FCC6343 - Status: Acute Priority: High Current Visit: Yes (3) Abdominal pain of unknown cause SNOMED Code(s): 670157669 Code(s): R10.9 - UNSPECIFIED ABDOMINAL PAIN Status: Acute Priority: High Current Visit: No - Problem List Review Problem List Initiated/Reviewed/Updated: Yes - My Orders Last 24 Hours: Active Orders 24 hr Category Date Time Status Regular Diet [DIET] Diet 01/01/18 Dinner Ordered Polyethylene Glycol 3350 [MiraLAX] Med 01/01/18 12:30 Ordered 17 gm PO DAILY Medication Orders Hydrocodone Bitart/Acetaminophen ([place] 325-5 Mg) 1 tab PO Q6H PRN PRN Reason: Pain (moderate 4-6) Last Admin: 01/01/18 10:22 Dose: 1 tab Admin: 01/01/18 02:12 Dose: 1 tab Admin: 12/31/17 18:13 Dose: 1 tab Admin: 12/31/17 12:11 Dose: 1 tab Admin: 12/31/17 06:13 Dose: 1 tab Admin: 12/30/17 17:50 Dose: 1 tab Admin: 12/30/17 10:31 Dose: 1 tab Benzocaine/Menthol (Cepacol Sore Throat) 1 lozenge MUCMEM ASDIRECTED PRN PRN Reason: Sore Throat Last Admin: 12/28/17 15:53 Dose: 1 lozenge Admin: 12/28/17 10:05 Dose: 1 lozenge Admin: 12/27/17 23:48 Dose: 1 lozenge Admin: 12/27/17 18:49 Dose: 1 lozenge Cefoxitin Sodium 1 gm/ Premix 50 mls @ 100 mls/hr IV ONETIME CK Lactated Ringer's (Ringers, Lactated) 1,000 mls @ 125 mls/hr IV ASDIRECTED CK Last Admin: 01/01/18 10:21 Dose: 125 mls/hr Infusion: 01/01/18 02:43 Dose: 125 mls/hr Admin: 12/31/17 18:43 Dose: 125 mls/hr Infusion: 12/31/17 18:43 Dose: 125 mls/hr Admin: 12/31/17 10:55 Dose: 125 mls/hr Infusion: 12/31/17 09:51 Dose: 125 mls/hr Admin: 12/31/17 01:51 Dose: 125 mls/hr Infusion: 12/31/17 01:51 Dose: 125 mls/hr Admin: 12/30/17 18:10 Dose: 125 mls/hr Infusion: 12/30/17 18:10 Dose: 125 mls/hr Admin: 12/30/17 10:30 Dose: 125 mls/hr Infusion: 12/30/17 10:25 Dose: 125 mls/hr Admin: 12/30/17 02:25 Dose: 125 mls/hr Infusion: 12/30/17 02:25 Dose: 125 mls/hr Admin: 12/29/17 18:32 Dose: 125 mls/hr Infusion: 12/29/17 18:32 Dose: 125 mls/hr Admin: 12/29/17 10:41 Dose: 125 mls/hr Infusion: 12/29/17 01:47 Dose: 125 mls/hr Admin: 12/28/17 17:47 Dose: 125 mls/hr Infusion: 12/28/17 17:27 Dose: 125 mls/hr Admin: 12/28/17 09:27 Dose: 125 mls/hr Lactated Ringer's (Ringers, Lactated) 1,000 mls @ 80 mls/hr IV ASDIRECTED [facility] Last Admin: 01/01/18 02:12 Dose: 125 mls/hr Infusion: 12/29/17 09:45 Dose: 125 mls/hr Admin: 12/29/17 01:45 Dose: 125 mls/hr Infusion: 12/28/17 09:00 Dose: 125 mls/hr Admin: 12/28/17 01:00 Dose: 125 mls/hr Infusion: 12/27/17 23:50 Dose: 125 mls/hr Admin: 12/27/17 15:50 Dose: 125 mls/hr Metoclopramide HCl (Reglan) 10 mg IV Q6H [facility] Last Admin: 01/01/18 08:22 Dose: 10 mg Admin: 01/01/18 02:12 Dose: 10 mg Admin: 12/31/17 20:27 Dose: 10 mg Admin: 12/31/17 14:13 Dose: 10 mg Admin: 12/31/17 08:10 Dose: 10 mg Admin: 12/31/17 01:49 Dose: 10 mg Admin: 12/30/17 21:07 Dose: 10 mg Admin: 12/30/17 15:03 Dose: 10 mg Admin: 12/30/17 08:51 Dose: 10 mg Admin: 12/30/17 02:27 Dose: 10 mg Admin: 12/29/17 21:38 Dose: 10 mg Admin: 12/29/17 14:47 Dose: 10 mg Admin: 12/29/17 08:15 Dose: 10 mg Admin: 12/29/17 01:46 Dose: 10 mg Admin: 12/28/17 20:18 Dose: 10 mg Admin: 12/28/17 15:43 Dose: 10 mg Admin: 12/28/17 09:27 Dose: 10 mg Admin: 12/28/17 02:51 Dose: 10 mg Admin: 12/27/17 21:02 Dose: 10 mg Admin: 12/27/17 15:47 Dose: 10 mg Metoprolol Succinate (Toprol Xl) 25 mg PO DAILY [facility] Last Admin: 01/01/18 08:22 Dose: 25 mg Admin: 12/31/17 08:11 Dose: 25 mg Admin: 12/30/17 08:51 Dose: 25 mg Admin: 12/29/17 08:15 Dose: 25 mg Admin: 12/28/17 17:43 Dose: 25 mg Morphine Sulfate (Morphine) 1 - 5 mg IVPUSH Q30M PRN PRN Reason: Pain (severe 7-10) Last Admin: 12/31/17 13:36 Dose: 2 mg Admin: 12/31/17 10:49 Dose: 1 mg Admin: 12/31/17 09:09 Dose: 1 mg Admin: 12/30/17 21:38 Dose: 4 mg Ondansetron HCl (Zofran) 4 mg IVPUSH Q6H PRN PRN Reason: Nausea/Vomiting Sodium Chloride (Saline Flush) 10 ml FLUSH ASDIRECTED PRN PRN Reason: Keep Vein Open Sodium Chloride (Saline Flush) 2.5 ml FLUSH ASDIRECTED PRN PRN Reason: Keep Vein Open - Assessment Assessment (Free Text/Narrative):: Patient is now passing gas and starting to have BM's. Abdomen is still distended but nontender. - Plan Plan (Free Text/Narrative):: Advance to regular diet. Possible discharge tomorrow.
[2018-01-01] MEDS: Polyethylene Glycol 3350 Powder 17 GM Packet PO SCH (12:45)
[2018-01-02] MEDS: Metoclopramide 10 MG/2 ML SDV IV SCH ×2 (03:11→08:45)
[2018-01-02] MEDS: Acetaminophen/HYDROcodone 325-5 MG Tab PO PRN ×2 (06:17→12:43)
[2018-01-02] MEDS: Metoprolol Succinate 25 MG Tab.ER PO SCH (08:45)
[2018-01-02] MEDS: Polyethylene Glycol 3350 Powder 17 GM Packet PO SCH (08:46)
[2018-01-02 12:48] VITALS: BP 141/71
--- NOTE | 2018-01-02 17:02 | PCM.DCSUM1 ---
Discharge Summary - Hospital Course HPI Initial Comments: 67 y/o female admitted with a closed loop bowel obstruction. Was taken urgently to the OR for exploratory laparotomy and lysis of adhesions. Post op convalescence slow due to abdominal distension. Distension has resolved and patient is having spontaneous flatus and BMs. Brief History: 67 y/o female with a longstanding history of abdominal discomfort and constipation. Abdominal pain became more intense with no spontaneous flatus or BM on the day of admission. Seen in ER. CT scan of the abdomen suggested a closed loop obstruction. Diagnosis: Stroke: No - Discharge Data Discharge Date: 01/02/18 (Patient will need assistance at home for wound treatment and ADL's.) Discharge Disposition: Home, Home Health Agency 06 Condition: Stable - Discharge Diagnosis/Problem(s) (1) Obstruction of small intestine due to peritoneal adhesion SNOMED Code(s): 406884128 ICD Code: K56.50 - INTESTNL ADHESIONS, UNSP TO PARTIAL VERSUS COMPLETE OBST Status: Acute Priority: High (2) Small bowel obstruction with strangulation or infarction SNOMED Code(s): 590023342 ICD Code: QHV3112 - Status: Acute Priority: High (3) Abdominal pain of unknown cause SNOMED Code(s): 647164267 ICD Code: R10.9 - UNSPECIFIED ABDOMINAL PAIN Status: Acute Priority: High - Patient Summary/Data Operative Procedure(s) Performed: Exploratory laparotomy with lysis of adhesions Hospital Course: Patient is a 67-year-old female who presented the emergency room on December 27 with progressive abdominal pain with no flatus or BM and multiple episodes of nausea with vomiting. Pain had started about 11:00 at night before. Her last bowel movement was more than [address] scan of the abdomen was done suggesting a closed-loop obstruction of the small bowel secondary to adhesions. She was prepared for surgery and taken to the operating room shortly after evaluation in the emergency room. She underwent expiratory laparotomy with lysis of adhesions. Postoperatively she has done relatively well. It did take some time for her bowel function to return. On approximately postoperative day 4, she did begin to have spontaneous passage of flatus. Bowel movements returned shortly after that. Her distention has substantially resolved. She is tolerating a regular diet without difficulty and is now ready for discharge from the hospital. - Patient Instructions Diet: Usual Diet as Tolerated Activity: No Lifting Over 25 Pounds (for 6 weeks from the date of surgery.) Driving: Do Not Drive Showering/Bathing: May Shower Wound/Incision Care: Keep Operative Site/Wound Site Clean and Dry Notify Provider of: Fever, Increased Pain, Nausea and/or Vomiting Other/Special Instructions: Resume all home medications-prescribed and over the counter. Send Rx--Jes[place] 5/325 1/2-1 tab po q6h prn pain - Discharge Plan Home Medications: Home Meds Ascorbic Acid [Vitamin C] 1,000 mg PO DAILY 12/27/17 [History] Aspirin 81 mg PO DAILY 12/27/17 [History] Calcium Carbonate [Calcium] 500 mg PO DAILY 12/27/17 [History] Cholecalciferol (Vitamin D3) [Vitamin D3] 1,000 unit PO BID 12/27/17 [History] Erythromycin Base [Erythromycin 0.5% Ophth Oint] 1 applic OP BEDTIME 12/27/17 [ History] Fish Oil/DHA/EPA [Fish Oil 1,200 MG] 1 each PO DAILY 12/27/17 [History] Ketamine HCl [Ketamine Hydrochloride] 12/27/17 [History] Metoprolol Succinate [Toprol XL] 25 mg PO DAILY 12/27/17 [History] Multivitamin [Multivitamins] 1 each PO DAILY 12/27/17 [History] Naltrexone HCl [Revia] 1.5 mg PO 12/27/17 [History] Ubidecarenone [Coq-10] 100 mg PO DAILY 12/27/17 [History] Patient Handouts: Acetaminophen; Hydrocodone tablets or capsules, Exploratory Laparotomy, Adult, Care After Referrals: Allen More MD [Physician] - 01/09/18 9:00 am - Discharge Summary/Plan Comment DC Time >30 min.: Yes - General Info Date of Service: 01/02/18 Admission Dx/Problem (Free Text: Admission Diagnosis/Problem Admission Diagnosis/Problem Small bowel obstruction Functional Status: Reports: Pain Controlled, Tolerating Diet, Ambulating, Urinating. Denies: New Symptoms - Review of Systems General: Reports: Weakness, Fatigue, Appetite (slowly improving). Denies: Fever , Malaise, Chills HEENT: Reports: No Symptoms Pulmonary: Denies: Shortness of Breath, Pleuritic Chest Pain, Cough, Sputum Cardiovascular: Denies: Chest Pain, Palpitations Gastrointestinal: Reports: Abdominal Pain (incisional), Constipation (chronic), Decreased Appetite, Flatus. Denies: Diarrhea, Hematochezia, Melena, Nausea, Vomiting 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: Denies: Dysuria, Frequency, Burning, Pain Musculoskeletal: Reports: No Symptoms Skin: Reports: No Symptoms Neurological: Reports: No Symptoms Psychiatric: Reports: No Symptoms - Patient Data Vitals - Most Recent: Last Vital Signs Temp 98.0 F 01/02/18 12:00 Pulse 81 01/02/18 12:00 Resp 16 01/02/18 12:00 BP 141/71 H 01/02/18 12:00 Pulse Ox 98 01/02/18 14:00 Weight - Most Recent: 120 lb I&O - Last 24 hours: Intake & Output 01/02/18 01/02/18 01/02/18 03:59 11:59 19:59 Intake Total 820 4003 800 Output Total 1950 1850 Balance -1130 4003 -1050 Med Orders - Current: Current Medications Discontinued Medications Hydrocodone Bitart/Acetaminophen ([place] 325-5 Mg) 1 tab PO Q6H PRN PRN Reason: Pain (moderate 4-6) Last Admin: 01/02/18 12:43 Dose: 1 tab Benzocaine/Menthol (Cepacol Sore Throat) 1 lozenge MUCMEM ASDIRECTED PRN PRN Reason: Sore Throat Last Admin: 12/28/17 15:53 Dose: 1 lozenge Bisacodyl (Dulcolax) 10 mg RECTAL ONETIME ONE Stop: 12/30/17 08:14 Last Admin: 12/30/17 08:51 Dose: 10 mg Bisacodyl (Dulcolax) 10 mg RECTAL ONETIME ONE Stop: 12/31/17 07:49 Last Admin: 12/31/17 08:10 Dose: 10 mg Bupivacaine HCl (Marcaine 0.5%) Confirm Administered Dose 120 ml .ROUTE .STK- MED ONE Stop: 12/27/17 12:41 Cefazolin Sodium (Ancef) Confirm Administered Dose 1 gm .ROUTE .STK-MED ONE Stop: 12/27/17 12:41 Ephedrine Sulfate (Ephedrine Sulfate) Confirm Administered Dose 50 mg .ROUTE .STK-MED ONE Stop: 12/27/17 12:58 Fentanyl (Sublimaze) Confirm Administered Dose 250 mcg .ROUTE .STK-MED ONE Stop: 12/27/17 12:58 Fentanyl (Sublimaze) 50 mcg IVPUSH Q5M PRN PRN Reason: Pain (severe 7-10) Stop: 12/28/17 14:26 Glycopyrrolate (Robinul) Confirm Administered Dose 0.2 mg .ROUTE .STK-MED ONE Stop: 12/27/17 13:26 Glycopyrrolate (Robinul) Confirm Administered Dose 0.4 mg .ROUTE .STK-MED ONE Stop: 12/27/17 13:56 Hydromorphone HCl (Dilaudid) Confirm Administered Dose 2 mg .ROUTE .STK-MED ONE Stop: 12/27/17 14:10 Hyoscyamine (Hyomax-Sl) 0.125 mg SL ONETIME ONE Stop: 12/27/17 09:56 Last Admin: 12/27/17 10:03 Dose: 0.125 mg Sodium Chloride (Normal Saline) 1,000 mls @ 999 mls/hr IV .Bolus ONE Stop: 12/27/17 09:25 Last Admin: 12/27/17 08:52 Dose: 999 mls/hr Cefoxitin Sodium 1 gm/ Premix 50 mls @ 100 mls/hr IV ONETIME [facility] Lactated Ringer's (Ringers, Lactated) 1,000 mls @ 125 mls/hr IV ASDIRECTED [facility] Last Admin: 01/01/18 10:21 Dose: 125 mls/hr Sodium Chloride (Normal Saline) Confirm Administered Dose 20 mls @ as directed .ROUTE .STK-MED ONE Stop: 12/27/17 12:58 Lactated Ringer's (Ringers, Lactated) 1,000 mls @ 80 mls/hr IV ASDIRECTED [facility] Last Admin: 01/01/18 19:26 Dose: 125 mls/hr Iopamidol (Isovue Multipack-370 (76%)) 100 ml IVPUSH ONETIME STA Stop: 12/27/17 11:18 Last Admin: 12/27/17 11:25 Dose: 100 ml Lidocaine (Xylocaine-Mpf 2%) Confirm Administered Dose 5 ml .ROUTE .STK-MED ONE Stop: 12/27/17 12:58 Metoclopramide HCl (Reglan) 10 mg IV Q6H [facility] Last Admin: 01/02/18 08:45 Dose: 10 mg Metoprolol Succinate (Toprol Xl) 25 mg PO DAILY [facility] Last Admin: 01/02/18 08:45 Dose: 25 mg Midazolam HCl (Versed 1 Mg/Ml) Confirm Administered Dose 2 mg .ROUTE .STK-MED ONE Stop: 12/27/17 12:58 Morphine Sulfate (Morphine Inhalation Therapy Teacher 30 Mg In 30 Ml) 30 mg IV ASDIRECTED CK; Protocol Morphine Sulfate (Morphine) 1 - 5 mg IVPUSH Q30M PRN PRN Reason: Pain (severe 7-10) Last Admin: 12/31/17 13:36 Dose: 2 mg Neostigmine Methylsulfate (Neostigmine) Confirm Administered Dose 5 mg .ROUTE .STK-MED ONE Stop: 12/27/17 13:56 Ondansetron HCl (Zofran) Confirm Administered Dose 4 mg .ROUTE .STK-MED ONE Stop: 12/27/17 12:58 Ondansetron HCl (Zofran) 4 mg IVPUSH Q6H PRN PRN Reason: Nausea/Vomiting Polyethylene Glycol (Miralax) 17 gm PO DAILY [facility] Last Admin: 01/02/18 08:46 Dose: 17 gm Propofol (Diprivan 20 Ml) Confirm Administered Dose 200 mg .ROUTE .STK-MED ONE Stop: 12/27/17 12:58 Rocuronium [place] (Zemuron) Confirm Administered Dose 100 mg .ROUTE .STK-MED ONE Stop: 12/27/17 12:58 Sodium Chloride (Saline Flush) 10 ml FLUSH ASDIRECTED PRN PRN Reason: Keep Vein Open Sodium Chloride (Saline Flush) 2.5 ml FLUSH ASDIRECTED PRN PRN Reason: Keep Vein Open Succinylcholine Chloride (Quelicin) Confirm Administered Dose 200 mg .ROUTE .STK -MED ONE Stop: 12/27/17 12:58 - Exam Quality Assessment: Reports: DVT Prophylaxis. Denies: Supplemental Oxygen, Skin Breakdown General: Reports: Alert, Oriented, Cooperative, No Acute Distress HEENT: Reports: Pupils Equal, Pupils Reactive, EOMI. Denies: Scleral Icterus Neck: Reports: Supple Lungs: Reports: Clear to Auscultation, Normal Respiratory Effort. Denies: Crackles, Rales, Rhonchi Cardiovascular: Reports: Regular Rate, Regular Rhythm. Denies: Tachycardia GI/Abdominal Exam: Normal Bowel Sounds, Soft, Non-Tender, No Distention, No Mass (Female) Exam: Normal External Exam Rectal (Female) Exam: Deferred Back Exam: Reports: Full Range of Motion. Denies: CVA Tenderness (L), CVA Tenderness (R) Extremities: Normal Inspection, Normal Range of Motion, No Pedal Edema. No: Charity's Sign Skin: Reports: Warm, Dry, Intact Wound/Incisions: Reports: Healing Well, No Drainage. Denies: Erythema Neurological: Reports: No New Focal Deficit Psy/Mental Status: Reports: Alert, Normal Affect, Normal Mood Discharge Operative/Procedures - Procedures Performed Operations/Procedure Comment: Exploratory laparotomy with lysis of adhesions.
== END 2018-01-02 14:33 | disposition home health service (06) | DRG 337 ==
LOC: MW.ED 08:06 → MW.MS 12:28 → MW.ED 13:11
PROVIDERS: ADMIT Surgery; ATTEND Surgery
PROC: 0DNW4ZZ Release Peritoneum, Percutaneous Endoscopic Approach (ICD-10-PCS; principal; 2017-12-27)
PROC: 0DN84ZZ Release Small Intestine, Percutaneous Endoscopic Approach (ICD-10-PCS; principal; 2017-12-27)
PROC: 0D9670Z Drainage of Stomach with Drainage Device, Via Natural or Artificial Opening (ICD-10-PCS; principal; 2017-12-27)
DX: K56.609 Unspecified intestinal obstruction, unspecified as to partial versus complete obstruction (principal); K56.50 Intestinal adhesions [bands], unspecified as to partial versus complete obstruction; K56.2 Volvulus; H54.7 Unspecified visual loss; K59.09 Other constipation; N94.89 Other specified conditions associated with female genital organs and menstrual cycle; M81.0 Age-related osteoporosis without current pathological fracture; Z88.1 Allergy status to other antibiotic agents; Z79.899 Other long term (current) drug therapy; R10.9 Unspecified abdominal pain; R11.0 Nausea; Z79.82 Long term (current) use of aspirin; Z90.710 Acquired absence of both cervix and uterus; Z90.49 Acquired absence of other specified parts of digestive tract
CPT/HCPCS: 36415; 74177; 80053; 81001; 83605; 83690; 85025; 96360; 96361; 99285; A9270; J7040; Q9967; 80048; 99283; C1765; J0330; J0690; J1170; J2250; J2270; J2405; J2704; J2765; J3010; J7120

== ENCOUNTER 2019-01-01 12:46 | Emergency (ER) | payer MEDICARE, OTHER ==
[2019-01-01] MEDS ORDERED: Sodium Chloride 0.9% 2.5 ML Syringe FLUSH PRN (12:57)
[2019-01-01] MEDS ORDERED: Sodium Chloride 0.9% 10 ML Syringe FLUSH PRN (12:57)
[2019-01-01] MEDS ORDERED: Aspirin 81 MG Tab.Chew PO ONE (13:01)
--- NOTE | 2019-01-01 13:02 | EDM.PDOC ---
ED HPI GENERAL MEDICAL PROBLEM - General Chief Complaint: Cardiovascular Problem Stated Complaint: HEART RATE FEELS ABNORMAL Time Seen by Provider: 01/01/19 12:50 - History of Present Illness INITIAL COMMENTS - FREE TEXT/NARRATIVE: HISTORY AND PHYSICAL: History of present illness: The patient is a 68-year-old female who follows with [facility] and has a history of an ablation in 2007 for PSVT and presents with complaints of feeling like she is having irregular beats frequently since Monday, 3 days ago. She says she is having it every day and it is happening continuously but not constantly. She says her heart rate is not rapid like PSVT and it is not painful. She says she feels these irregular beats and then she feels like her heart is positing and then eats normally. This does not wake her from sleep and she has no associated nausea vomiting abdominal pain shortness of breath fevers or chills. She is eating and drinking normally. She has an appointment with Dr. Whitlock in the clinic later this month and has not seen them for the last one year. 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 She says that she takes her Toprol for her PSVT and that is not new or different. She does not take any blood thinners. She currently is not symptomatic here in the ED with respect to pain or shortness of breath but as I'm talking to her she says she does feel some irregular beats and I'm able to see that she is having PACs on the monitor. She has no leg pain or swelling. She has no history of thyroid disease and is on no thyroid medication Review of systems: As per history of present illness and below otherwise all systems reviewed and negative. Past medical history: As per history of present illness and as reviewed below otherwise noncontributory. Surgical history: As per history of present illness and as reviewed below otherwise noncontributory. Social history: No reported history of drug or alcohol abuse. Family history: As per history of present illness and as reviewed below otherwise noncontributory. Physical exam: General: Well-developed well-nourished female who is nontoxic and vital signs are noted by me HEENT: Atraumatic, normocephalic, negative for conjunctival pallor or scleral icterus, mucous membranes moist, throat clear, neck supple, nontender, trachea midline. Lungs: Clear to auscultation, breath sounds equal bilaterally, chest nontender. Heart: S1S2, regular rate and rhythm and I do not appreciate any ectopic beats on auscultation but I am able to see an occasional PAC on the monitor with compensatory positive, negative for clicks, rubs, or JVD. Abdomen: Soft, nondistended, nontender. Negative for masses or hepatosplenomegaly. NABS Pelvis: Stable nontender. 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: Deferred. Rectal: Deferred. Extremities: Atraumatic, negative for cords or calf pain. Neurovascular unremarkable. No pedal edema or leg asymmetry Neuro: Awake, alert, oriented. Cranial nerves II through XII unremarkable. Cerebellum unremarkable. Motor and sensory unremarkable throughout. Exam nonfocal. Diagnostics: EKG CBC CMP magnesium level troponin chest x-ray Therapeutics: IV O2 monitor aspirin 1302: Case was discussed with Dr. Whitlock who agrees with doing baseline labs and workup and if all that is negative he will see the patient in clinic on her scheduled appointment. He agrees that getting a Zio monitor performed would help him as well as ease the patient's anxiety about what is occurring. 1330: A Zio monitor has been placed and an order will also be placed by respiratory therapy and the patient will wear the monitor for 14 days and will be instructed as to where to return it. The results will be sent to Dr. Whitlock impression: Irregular heartbeat/PACs with history of PSVT stable Definitive disposition and diagnosis as appropriate pending reevaluation and review of above. left chest Pain Score (Numeric/FACES): 8 - Related Data Allergies Allergy/AdvReac Type Severity Reaction Status Date / Time levofloxacin [From Levaquin] AdvReac Mild unknown Verified 01/01/19 12:50 Home Meds: Home Meds Ascorbic Acid [Vitamin C] 580 mg PO DAILY 12/27/17 [History] Aspirin 81 mg PO DAILY 12/27/17 [History] Cholecalciferol (Vitamin D3) [Vitamin D3] 2,000 unit PO DAILY 12/27/17 [History] Erythromycin Base [Erythromycin 0.5% Ophth Oint] 1 applic OP BEDTIME 12/27/17 [ History] Fish Oil/DHA/EPA [Fish Oil 1,200 MG] 2 each PO BID 12/27/17 [History] Metoprolol Succinate [Toprol XL] 25 mg PO DAILY 12/27/17 [History] Multivitamin [Multivitamins] 1 each PO DAILY 12/27/17 [History] Ubidecarenone [Coq-10] 100 mg PO DAILY 12/27/17 [History] Carboxymethyl/Gly/Poly80/Pf [Refresh Optive Advanced Drops] 1 drop EYEBOTH . NEEDED PRN 01/01/19 [History] Cyanocobalamin (Vitamin B-12) [B-12] 1,000 mcg PO DAILY 01/01/19 [History] Magnesium Glycinate [Mag Glycinate] 300 mg PO BID 01/01/19 [History] Polyethylene Glycol 3350 [MiraLAX] 1.5 tbsp PO DAILY 01/01/19 [History] Past Medical History HEENT History: Reports: Impaired Vision Other HEENT History: glasses Cardiovascular History: Reports: Other (See Below) Other Cardiovascular History: PSVT Respiratory History: Reports: None Gastrointestinal History: Reports: Chronic Constipation 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 History: Reports: Other (See Below) Other 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 History: Pelvis Congestion Syndrome 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 PATHOLOGIST 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: Reports: Musculoskeletal History: Reports: Osteoporosis Other Musculoskeletal History: fx to Left ulna Neurological History: Reports: None Psychiatric History: Reports: None Endocrine/Metabolic History: Reports: None Hematologic History: Reports: None Immunologic History: Reports: None Oncologic (Cancer) History: Reports: None Dermatologic History: Reports: None - Infectious Disease History Infectious Disease History: Reports: Chicken Pox, Measles, Mumps - Past Surgical History Head Surgeries/Procedures: Reports: None HEENT Surgical History: Reports: None Cardiovascular Surgical History: Reports: Cardiac Ablation, Other (See Below) Respiratory Surgical History: Reports: None GI Surgical History: Reports: None Female Surgical History: Reports: None Endocrine Surgical History: Reports: None Neurological Surgical History: Reports: None Musculoskeletal Surgical History: Reports: None Oncologic Surgical History: Reports: None Dermatological Surgical History: Reports: None Social & Family History - Family History Family Medical History: Noncontributory HEENT: Reports: None Cardiac: Reports: High Cholesterol Respiratory: Reports: None GI: Reports: None : Reports: None OBGYN: Reports: None Musculoskeletal: Reports: None Neurological: Reports: None Psychiatric: Reports: None Endocrine/Metabolic: Reports: Diabetes, type II Hematologic: Reports: None Immunologic: Reports: None Dermatologic: Reports: None Oncologic: Reports: None - Caffeine Use Caffeine Use: Reports: None ED ROS GENERAL - Review of Systems Review Of Systems: ROS reveals no pertinent complaints other than HPI. ED EXAM, GENERAL - Physical Exam Exam: See Below (See dictation) Course - Vital Signs Last Recorded V/S: Last Vital Signs Temp 36.0 C 01/01/19 12:50 Pulse 77 01/01/19 12:50 Resp 18 01/01/19 12:50 BP 166/82 H 01/01/19 12:50 Pulse Ox 96 01/01/19 12:50 - Orders/Labs/Meds Orders: Active Orders 24 hr Category Date Time Status Cardiac Monitoring [RC] . DIRECTED Care 01/01/19 12:57 Active EKG Documentation Completion [RC] STAT Care 01/01/19 12:57 Active Oxygen Therapy, ED [RC] ASDIRECTED Care 01/01/19 12:57 Active Pulse Oximetry [RC] ASDIRECTED Care 01/01/19 12:57 Active Sodium Chloride 0.9% [Saline Flush] Med 01/01/19 12:57 Active 10 ml FLUSH ASDIRECTED PRN Sodium Chloride 0.9% [Saline Flush] Med 01/01/19 12:57 Active 2.5 ml FLUSH ASDIRECTED PRN Saline Lock Insert [OM.PC] Stat Oth 01/01/19 12:57 Ordered Medication Orders Sodium Chloride (Saline Flush) 10 ml FLUSH ASDIRECTED PRN PRN Reason: Keep Vein Open Sodium Chloride (Saline Flush) 2.5 ml FLUSH ASDIRECTED PRN PRN Reason: Keep Vein Open Labs: Laboratory Tests 01/01/19 01/01/19 Range/Units 13:15 13:15 WBC 6.39 (4.0-11.0) K/uL RBC 4.12 L (4.30-5.90) M/uL Hgb 12.2 (12.0-16.0) g/dL Hct 38.3 (36.0-46.0) % MCV 93.0 (80.0-98.0) fL MCH 29.6 (27.0-32.0) pg MCHC 31.9 (31.0-37.0) g/dL RDW Std Deviation 43.6 (28.0-62.0) fl RDW Coeff of Arianne 13 (11.0-15.0) % Plt Count 182 (150-400) K/uL MPV 10.80 (7.40-12.00) fL Neut % (Auto) 64.8 (48.0-80.0) % Lymph % (Auto) 26.6 (16.0-40.0) % [place] % (Auto) 7.2 (0.0-15.0) % Eos % (Auto) 1.1 (0.0-7.0) % Baso % (Auto) 0.3 (0.0-1.5) % Neut # (Auto) 4.1 (1.4-5.7) K/uL Lymph # (Auto) 1.7 (0.6-2.4) K/uL [place] # (Auto) 0.5 (0.0-0.8) K/uL Eos # (Auto) 0.1 (0.0-0.7) K/uL Baso # (Auto) 0.0 (0.0-0.1) K/uL Nucleated RBC % 0.0 /100WBC Nucleated RBCs # 0 K/uL Sodium 142 (136-145) mmol/L Potassium 3.8 (3.5-5.1) mmol/L Chloride 107 (98-107) mmol/L Carbon Dioxide 26.6 (21.0-32.0) mmol/L BUN 19 H (7.0-18.0) mg/dL Creatinine 0.7 (0.6-1.0) mg/dL Est Cr Clr Drug Dosing 62.90 mL/min Estimated GFR (MDRD) > 60.0 ml/min Glucose 89 (74-106) mg/dL Calcium 9.3 (8.5-10.1) mg/dL Magnesium 2.2 (1.8-2.4) mg/dL Total Bilirubin 0.6 (0.2-1.0) mg/dL AST 24 (15-37) IU/L ALT 25 (14-63) IU/L Alkaline Phosphatase 82 (46-116) U/L Troponin I < 0.050 (0.000-0.056) ng/mL Total Protein 6.8 (6.4-8.2) g/dL Albumin 3.4 (3.4-5.0) g/dL Globulin 3.4 (2.6-4.0) g/dL Albumin/Globulin Ratio 1.0 (0.9-1.6) Meds: Medications Generic Name Dose Route Start Last Admin Trade Name Freq PRN Reason Stop Dose Admin Sodium Chloride 10 ml 01/01/19 12:57 Saline Flush FLUSH ASDIRECTED PRN Keep Vein Open Sodium Chloride 2.5 ml 01/01/19 12:57 Saline Flush FLUSH ASDIRECTED PRN Keep Vein Open Discontinued Medications Generic Name Dose Route Start Last Admin Trade Name Freq PRN Reason Stop Dose Admin Aspirin 324 mg 01/01/19 13:01 01/01/19 13:51 Aspirin PO 01/01/19 13:02 324 mg ONETIME ONE Administration Departure - Departure Time of Disposition: 14:01 Disposition: Home, Self-Care 01 Reason for Transfer *Q: Primary PCI Indicated Condition: Good Clinical Impression: Irregular heart beats, PAC (premature atrial contraction) Forms: ED Department Discharge Additional Instructions: The following information is given to patients seen in the emergency department who are being discharged to home. This information is to outline your options for follow-up care. We provide all patients seen in our emergency department with a follow-up referral. The need for follow-up, as well as the timing and circumstances, are variable depending upon the specifics of your emergency department visit. If you don't have a primary care physician on staff, we will provide you with a referral. We always advise you to contact your personal physician following an emergency department visit to inform them of the circumstance of the visit and for follow-up with them and/or the need for any referrals to a consulting specialist. The emergency department will also refer you to a specialist when appropriate. This referral assures that you have the opportunity for followup care with a specialist. All of these measure are taken in an effort to provide you with optimal care, which includes your followup. Under all circumstances we always encourage you to contact your private physician who remains a resource for coordinating your care. When calling for followup care, please make the office aware that this follow-up is from your recent emergency room visit. If for any reason you are refused follow-up, please contact the [facility] emergency department at and ask to speak to the emergency department charge nurse. [facility] Primary care- Internal Medicine and Family [address] [address] Please keep your appointment with Dr. Whitlock as scheduled and return the heart monitor as instructed per respiratory therapy in 14 days. Continue all home medication and avoid caffeine use. Push hydration with the hot weather. Return to ER as needed and as discussed - My Orders Last 24 Hours: My Active Orders 01/01/19 12:57 Cardiac Monitoring [RC] . DIRECTED EKG Documentation Completion [RC] STAT Oxygen Therapy, ED [RC] ASDIRECTED Pulse Oximetry [RC] ASDIRECTED Sodium Chloride 0.9% [Saline Flush] 10 ml FLUSH ASDIRECTED PRN Sodium Chloride 0.9% [Saline Flush] 2.5 ml FLUSH ASDIRECTED PRN Saline Lock Insert [OM.PC] Stat - Assessment/Plan Last 24 Hours: My Active Orders 01/01/19 12:57 Cardiac Monitoring [RC] . DIRECTED EKG Documentation Completion [RC] STAT Oxygen Therapy, ED [RC] ASDIRECTED Pulse Oximetry [RC] ASDIRECTED Sodium Chloride 0.9% [Saline Flush] 10 ml FLUSH ASDIRECTED PRN Sodium Chloride 0.9% [Saline Flush] 2.5 ml FLUSH ASDIRECTED PRN Saline Lock Insert [OM.PC] Stat
--- NOTE | 2019-01-01 13:49 | CR ---
EXAMINATION: Portable chest radiograph. HISTORY: Shortness of breath. FINDINGS: The trachea is midline. The cardiomediastinal silhouette is within normal limits. No pulmonary infiltrates, effusions or pneumothorax. Hyperinflation and chronic interstitial prominence. Possible nodular area within the right infrahilar region. Osseous structures appear unremarkable. IMPRESSION: 1. No acute cardiopulmonary process. 2. Hyperinflation and chronic interstitial prominence. 3. Small nodular area or atelectasis within the right lung base. Follow-up imaging with a CT scan may be beneficial to rule out an underlying nodule.
[2019-01-01 13:50] LABS: CHLORIDE,CL 107 mmol/L (98-107); SODIUM,NA 142 mmol/L (136-145)
[2019-01-01 14:51] VITALS: BP 105/57
== END 2019-01-01 14:31 | disposition home or self-care (01) ==
LOC: MW.ED 12:46
DX: I49.1 Atrial premature depolarization (principal); Z88.1 Allergy status to other antibiotic agents; Z79.82 Long term (current) use of aspirin; Z79.899 Other long term (current) drug therapy
CPT/HCPCS: 36415; 71045; 80053; 83735; 84484; 85025; 93005; 99284; A9270

== ENCOUNTER 2019-06-23 19:04 | Inpatient (IN) | payer MEDICARE, OTHER ==
[2019-06-23] MEDS ORDERED: Sodium Chloride 0.9% 2.5 ML Syringe FLUSH PRN (19:27)
[2019-06-23] MEDS ORDERED: Sodium Chloride 0.9% 10 ML Syringe FLUSH PRN (19:27)
--- NOTE | 2019-06-23 19:28 | EDM.PDOC ---
ED HPI GENERAL MEDICAL PROBLEM - General Chief Complaint: Abdominal Pain Stated Complaint: ABD PAIN Time Seen by Provider: 06/23/19 19:28 Source of Information: Reports: Patient History Limitations: Reports: No Limitations - History of Present Illness INITIAL COMMENTS - FREE TEXT/NARRATIVE: HISTORY AND PHYSICAL: History of present illness: Patient is a 68-year-old female presents to the ED with complaint of abdominal pain. She states pain started yesterday in her lower abdomen. She has had 5 episodes of vomiting. She denies diarrhea, states she had a small nonbloody bowel movement this morning. Denies fevers, chills, chest pain, shortness of breath. She does have history of SBO 1 year ago. Surgical history includes hysterectomy and cholecystectomy. Review of systems: As per history of present illness and below otherwise all systems reviewed and negative. Past medical history: As per history of present illness and as reviewed below otherwise noncontributory. Surgical history: As per history of present illness and as reviewed below otherwise noncontributory. Social history: No reported history of drug or alcohol abuse. Family history: As per history of present illness and as reviewed below otherwise noncontributory. Physical exam: General: Patient sitting comfortably in no acute distress and nontoxic appearing HEENT: Atraumatic, normocephalic, pupils reactive, negative for conjunctival pallor or scleral icterus, mucous membranes moist, throat clear, neck supple, nontender, trachea midline. No meningeal signs. Lungs: Clear to auscultation, breath sounds equal bilaterally, chest nontender. Heart: S1S2, regular, negative for clicks, rubs, or overt murmur. Abdomen: Diffuse abdominal tenderness, no point tenderness to palpation. Soft, nondistended. Negative for masses or hepatosplenomegaly. Negative for costovertebral tenderness. No rigidity, rebound, guarding. Pelvis: Stable nontender. 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: Deferred. Rectal: Deferred. Extremities: Atraumatic, negative for cords or calf pain. Neurovascular unremarkable. Neuro: Awake, alert, oriented. Cranial nerves II through XII unremarkable. Cerebellum unremarkable. Motor and sensory unremarkable throughout. Exam nonfocal. Notes: Dr. Perez saw patient in the ED and patient will be admitted to inpatient on his service Diagnostics: CBC, CMP, lipase, UA, CT abdomen/pelvis w/ contrast Therapeutics: 1L NS IV 30mg Toradol IV NG tube Prescriptions: Impression: Small bowel obstruction Definitive disposition and diagnosis as appropriate pending reevaluation and review of above. - Related Data Allergies Allergy/AdvReac Type Severity Reaction Status Date / Time levofloxacin [From Levaquin] AdvReac Mild unknown Verified 06/23/19 19:19 Home Meds: Home Meds Ascorbic Acid [Vitamin C] 580 mg PO DAILY 12/27/17 [History] Aspirin 81 mg PO DAILY 12/27/17 [History] Cholecalciferol (Vitamin D3) [Vitamin D3] 2,000 unit PO DAILY 12/27/17 [History] Erythromycin Base [Erythromycin 0.5% Ophth Oint] 1 applic OP BEDTIME 12/27/17 [ History] Fish Oil/DHA/EPA [Fish Oil 1,200 MG] 2 each PO BID 12/27/17 [History] Metoprolol Succinate [Toprol XL] 25 mg PO DAILY 12/27/17 [History] Multivitamin [Multivitamins] 1 each PO DAILY 12/27/17 [History] Ubidecarenone [Coq-10] 100 mg PO DAILY 12/27/17 [History] Carboxymethyl/Gly/Poly80/Pf [Refresh Optive Advanced Drops] 1 drop EYEBOTH . NEEDED PRN 01/01/19 [History] Cyanocobalamin (Vitamin B-12) [B-12] 1,000 mcg PO DAILY 01/01/19 [History] Magnesium Glycinate [Mag Glycinate] 300 mg PO BID 01/01/19 [History] Polyethylene Glycol 3350 [MiraLAX] 1.5 tbsp PO DAILY 01/01/19 [History] Past Medical History HEENT History: Reports: Impaired Vision Other HEENT History: glasses Cardiovascular History: Reports: Other (See Below) Other Cardiovascular History: PSVT Respiratory History: Reports: None Gastrointestinal History: Reports: Chronic Constipation 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 History: Reports: Other (See Below) Other 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 History: Pelvis Congestion Syndrome [employer]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: Musculoskeletal History: Reports: Osteoporosis Other Musculoskeletal History: fx to Left ulna Neurological History: Reports: None Psychiatric History: Reports: None Endocrine/Metabolic History: Reports: None Hematologic History: Reports: None Immunologic History: Reports: None Oncologic (Cancer) History: Reports: None Dermatologic History: Reports: None - Infectious Disease History Infectious Disease History: Reports: Measles, Mumps - Past Surgical History Head Surgeries/Procedures: Reports: None HEENT Surgical History: Reports: None Cardiovascular Surgical History: Reports: Cardiac Ablation, Other (See Below) Respiratory Surgical History: Reports: None GI Surgical History: Reports: None Female Surgical History: Reports: None Endocrine Surgical History: Reports: None Neurological Surgical History: Reports: None Musculoskeletal Surgical History: Reports: None Oncologic Surgical History: Reports: None Dermatological Surgical History: Reports: None Social & Family History - Family History Family Medical History: Noncontributory HEENT: Reports: None Cardiac: Reports: High Cholesterol Respiratory: Reports: None GI: Reports: None : Reports: None OBGYN: Reports: None Musculoskeletal: Reports: None Neurological: Reports: None Psychiatric: Reports: None Endocrine/Metabolic: Reports: Diabetes, type II Hematologic: Reports: None Immunologic: Reports: None Dermatologic: Reports: None Oncologic: Reports: None - Tobacco Use Smoking Status *Q: Never Smoker - Caffeine Use Caffeine Use: Reports: None - Recreational Drug Use Recreational Drug Use: No ED ROS GENERAL - Review of Systems Review Of Systems: Comprehensive ROS is negative, except as noted in HPI. ED EXAM, GI/ABD - Physical Exam Exam: See Below (see dictation) Course - Vital Signs Last Recorded V/S: Last Vital Signs Temp 97.2 F 06/23/19 19:15 Pulse 110 H 06/23/19 19:15 Resp 14 06/23/19 19:15 BP 129/76 06/23/19 19:15 Pulse Ox 98 06/23/19 19:15 - Orders/Labs/Meds Orders: Active Orders 24 hr Category Date Time Status Admission Status [Patient Status] [ADT] Stat ADT 06/23/19 22:43 Active NG Tube Placement [CR] Stat Exams 06/23/19 22:43 Ordered UA RFX SCOTT AND CULT IF INDIC [URIN] Stat Lab 06/23/19 19:27 Ordered Sodium Chloride 0.9% [Saline Flush] Med 06/23/19 19:27 Active 10 ml FLUSH ASDIRECTED PRN Sodium Chloride 0.9% [Saline Flush] Med 06/23/19 19:27 Active 2.5 ml FLUSH ASDIRECTED PRN NG [Nasogastric Orogastric Tube Insertion] [OM.PC] Stat Oth 06/23/19 22:42 Ordered Saline Lock Insert [OM.PC] Stat Oth 06/23/19 19:27 Ordered Medication Orders Sodium Chloride (Saline Flush) 10 ml FLUSH ASDIRECTED PRN PRN Reason: Keep Vein Open Sodium Chloride (Saline Flush) 2.5 ml FLUSH ASDIRECTED PRN PRN Reason: Keep Vein Open Labs: Laboratory Tests 06/23/19 06/23/19 06/23/19 Range/Units 19:21 19:21 19:21 WBC 17.64 H (4.0-11.0) K/uL RBC 4.73 (4.30-5.90) M/uL Hgb 14.4 (12.0-16.0) g/dL Hct 42.3 (36.0-46.0) % MCV 89.4 (80.0-98.0) fL MCH 30.4 (27.0-32.0) pg MCHC 34.0 (31.0-37.0) g/dL RDW Std Deviation 41.7 (28.0-62.0) fl RDW Coeff of Arianne 13 (11.0-15.0) % Plt Count 294 (150-400) K/uL MPV 9.90 (7.40-12.00) fL Neut % (Auto) 89.4 H (48.0-80.0) % Lymph % (Auto) 5.6 L (16.0-40.0) % [place] % (Auto) 4.9 (0.0-15.0) % Eos % (Auto) 0.0 (0.0-7.0) % Baso % (Auto) 0.1 (0.0-1.5) % Neut # (Auto) 15.8 H (1.4-5.7) K/uL Lymph # (Auto) 1.0 (0.6-2.4) K/uL [place] # (Auto) 0.9 H (0.0-0.8) K/uL Eos # (Auto) 0.0 (0.0-0.7) K/uL Baso # (Auto) 0.0 (0.0-0.1) K/uL Nucleated RBC % 0.0 /100WBC Nucleated RBCs # 0 K/uL Lactate 1.4 (0.20-2.00) mmol/L Sodium 139 (136-145) mmol/L Potassium 4.1 (3.5-5.1) mmol/L Chloride 101 (98-107) mmol/L Carbon Dioxide 27.1 (21.0-32.0) mmol/L BUN 26 H (7.0-18.0) mg/dL Creatinine 0.9 (0.6-1.0) mg/dL Est Cr Clr Drug Dosing TNP Estimated GFR (MDRD) > 60.0 ml/min Glucose 134 H (74-106) mg/dL Calcium 9.3 (8.5-10.1) mg/dL Total Bilirubin 1.0 (0.2-1.0) mg/dL AST 23 (15-37) IU/L ALT 34 (14-63) IU/L Alkaline Phosphatase 88 (46-116) U/L Total Protein 7.5 (6.4-8.2) g/dL Albumin 3.6 (3.4-5.0) g/dL Globulin 3.9 (2.6-4.0) g/dL Albumin/Globulin Ratio 0.9 (0.9-1.6) Lipase 152 (73-393) U/L Urine Color Urine Appearance Urine pH (5.0-8.0) Ur Specific [place] (1.001-1.035) Urine Protein (NEGATIVE) mg/dL Urine Glucose (UA) (NEGATIVE) mg/dL Urine Ketones (NEGATIVE) mg/dL Urine Occult Blood (NEGATIVE) Urine Nitrite (NEGATIVE) Urine Bilirubin (NEGATIVE) Urine Urobilinogen (<2.0) EU/dL Ur Leukocyte Esterase (NEGATIVE) 06/23/19 06/23/19 Range/Units 19:27 22:20 WBC (4.0-11.0) K/uL RBC (4.30-5.90) M/uL Hgb (12.0-16.0) g/dL Hct (36.0-46.0) % MCV (80.0-98.0) fL MCH (27.0-32.0) pg MCHC (31.0-37.0) g/dL RDW Std Deviation (28.0-62.0) fl RDW Coeff of Arianne (11.0-15.0) % Plt Count (150-400) K/uL MPV (7.40-12.00) fL Neut % (Auto) (48.0-80.0) % Lymph % (Auto) (16.0-40.0) % [place] % (Auto) (0.0-15.0) % Eos % (Auto) (0.0-7.0) % Baso % (Auto) (0.0-1.5) % Neut # (Auto) (1.4-5.7) K/uL Lymph # (Auto) (0.6-2.4) K/uL [place] # (Auto) (0.0-0.8) K/uL Eos # (Auto) (0.0-0.7) K/uL Baso # (Auto) (0.0-0.1) K/uL Nucleated RBC % /100WBC Nucleated RBCs # K/uL Lactate 1.4 (0.20-2.00) mmol/L Sodium (136-145) mmol/L Potassium (3.5-5.1) mmol/L Chloride (98-107) mmol/L Carbon Dioxide (21.0-32.0) mmol/L BUN (7.0-18.0) mg/dL Creatinine (0.6-1.0) mg/dL Est Cr Clr Drug Dosing Estimated GFR (MDRD) ml/min Glucose (74-106) mg/dL Calcium (8.5-10.1) mg/dL Total Bilirubin (0.2-1.0) mg/dL AST (15-37) IU/L ALT (14-63) IU/L Alkaline Phosphatase (46-116) U/L Total Protein (6.4-8.2) g/dL Albumin (3.4-5.0) g/dL Globulin (2.6-4.0) g/dL Albumin/Globulin Ratio (0.9-1.6) Lipase (73-393) U/L Urine Color YELLOW Urine Appearance CLEAR Urine pH 6.5 (5.0-8.0) Ur Specific [place] 1.015 (1.001-1.035) Urine Protein NEGATIVE (NEGATIVE) mg/dL Urine Glucose (UA) NEGATIVE (NEGATIVE) mg/dL Urine Ketones 15 H (NEGATIVE) mg/dL Urine Occult Blood NEGATIVE (NEGATIVE) Urine Nitrite NEGATIVE (NEGATIVE) Urine Bilirubin NEGATIVE (NEGATIVE) Urine Urobilinogen 0.2 (<2.0) EU/dL Ur Leukocyte Esterase NEGATIVE (NEGATIVE) Meds: Medications Generic Name Dose Route Start Last Admin Trade Name Freq PRN Reason Stop Dose Admin Sodium Chloride 10 ml 06/23/19 19:27 Saline Flush FLUSH ASDIRECTED PRN Keep Vein Open Sodium Chloride 2.5 ml 06/23/19 19:27 Saline Flush FLUSH ASDIRECTED PRN Keep Vein Open Discontinued Medications Generic Name Dose Route Start Last Admin Trade Name Freq PRN Reason Stop Dose Admin Benzocaine 2 each 06/23/19 22:42 Hurricaine One 20% MUCMEM 06/23/19 22:43 ONETIME ONE Sodium Chloride 1,000 mls @ 999 mls/hr 06/23/19 19:43 06/23/19 19:54 Normal Saline IV 06/23/19 20:43 999 mls/hr STAT ONE Administration Iopamidol 100 ml 06/23/19 19:56 06/23/19 20:22 Isovue Multipack-370 (76%) IVPUSH 06/23/19 19:57 100 ml ONETIME ONE Administration Ketorolac Tromethamine 30 mg 06/23/19 19:35 06/23/19 19:54 Toradol IVPUSH 06/23/19 19:36 30 mg ONETIME ONE Administration Departure - Departure Time of Disposition: 22:48 Disposition: Admitted As Inpatient 66 Condition: Good Clinical Impression: Small bowel obstruction - Discharge Information Referrals: Sim Whitlock MD [Primary Care Provider] - Forms: ED Department Discharge Sepsis Event Note - Evaluation Sepsis Screening Result: No Definite Risk - Focused Exam Vital Signs: Vital Signs Temp Pulse Resp BP Pulse Ox 06/23/19 19:15 97.2 F 110 H 14 129/76 98 Date Exam was Performed: 06/23/19 Time Exam was Performed: 22:47 - My Orders Last 24 Hours: My Active Orders 06/23/19 19:27 UA RFX SCOTT AND CULT IF INDIC [URIN] Stat Sodium Chloride 0.9% [Saline Flush] 10 ml FLUSH ASDIRECTED PRN Sodium Chloride 0.9% [Saline Flush] 2.5 ml FLUSH ASDIRECTED PRN Saline Lock Insert [OM.PC] Stat 06/23/19 22:43 Admission Status [Patient Status] [ADT] Stat NG Tube Placement [CR] Stat - Assessment/Plan Last 24 Hours: My Active Orders 06/23/19 19:27 UA RFX SCOTT AND CULT IF INDIC [URIN] Stat Sodium Chloride 0.9% [Saline Flush] 10 ml FLUSH ASDIRECTED PRN Sodium Chloride 0.9% [Saline Flush] 2.5 ml FLUSH ASDIRECTED PRN Saline Lock Insert [OM.PC] Stat 06/23/19 22:43 Admission Status [Patient Status] [ADT] Stat NG Tube Placement [CR] Stat
[2019-06-23] MEDS ORDERED: Ketorolac 30 MG/ML SDV IVPUSH ONE (19:35)
[2019-06-23 19:43] LABS: BLOOD UREA NITROGEN,BUN 26 mg/dL (7.0-18.0); CARBON DIOXIDE,CO2 27.1 mmol/L (21.0-32.0); CHLORIDE,CL 101 mmol/L (98-107); GLUCOSE RANDOM 134 mg/dL (74-106); LIPASE 152 U/L (73-393); POTASSIUM,K 4.1 mmol/L (3.5-5.1); SODIUM,NA 139 mmol/L (136-145)
[2019-06-23] MEDS ORDERED: Sodium Chloride 0.9% 1,000 ML IV ONE (19:43)
[2019-06-23] MEDS ORDERED: Iopamidol 755 MG/ML 200 ML Multipack Bottle IVPUSH ONE (19:56)
--- NOTE | 2019-06-23 21:24 | CT ---
Indication: Abdominal pain Technique: Contrast enhanced axial CT imaging through the abdomen and pelvis. 100 mL Isovue 370 contrast agent was administered intravenously. Sagittal and coronal reconstructions are provided. Comparison: CT abdomen pelvis with contrast 02/06/2018 Findings: There are multiple distended fluid-filled distal small bowel loops measuring up to 3.6 cm, consistent with small bowel obstruction. Transition point is identified in the anterior lower abdomen (sagittal image 64, coronal image 53) The distal most small bowel is decompressed. The stomach and proximal small bowel are unremarkable. There is no colonic wall thickening. There is trace ascites. There is no pneumoperitoneum or bowel pneumatosis. There is evidence of prior partial hepatectomy. A 12 mm hypoenhancing lesion along the posterior margin of the right hepatic lobe is unchanged since prior. The spleen, pancreas, adrenal glands, and kidneys are unremarkable. Cholecystectomy clips are noted. There is normal enhancement of the portal venous system. There is normal caliber of the abdominal aorta. No lymphadenopathy is appreciated in the abdomen and pelvis. The visualized osseous structures are unremarkable. The included lung bases are clear. A 3.4 x 2.0 cm masslike soft tissue density is partially visualized in the inferior right breast. Impression: 1. Small-bowel obstruction with transition point in the anterior lower abdomen, as above. No evidence of perforation or vessel pneumatosis. 2. Nonspecific trace ascites. 3. Indeterminate small hypoenhancing lesion in the posterior right hepatic lobe, stable since 02/06/2018, favoring benign nature. 4. Partially visualized masslike soft tissue density in the inferior right breast. Recommend correlation with mammography or breast ultrasound. Please note that all CT scans at this facility use dose modulation, iterative reconstruction, and/or weight-based dosing when appropriate to reduce radiation dose to as low as reasonably achievable. Dictated by Sadie Zaldivar MD @ Jun 23 2019 9:03PM Signed by Dr. Sadie Zaldivar @ Jun 23 2019 9:21PM
[2019-06-23] MEDS ORDERED: Benzocaine 20% Topical Spray UD MUCMEM ONE (22:42)
--- NOTE | 2019-06-23 22:57 | PCM.SN ---
- Free Text/Narrative Note: abd pain, n/v, ct > sbo; pain resolved; plan serial abd exam, insert ngt, npo, ivf, protonix, abx; pt voiced understanding; [id number]
[2019-06-23] MEDS ORDERED: Ondansetron 4 MG/2 ML SDV IVPUSH PRN (22:59)
[2019-06-23] MEDS ORDERED: Morphine 2 MG/ML Syringe IVPUSH PRN (23:00)
--- NOTE | 2019-06-23 23:37 | CR ---
Indication: NG-tube placement. Technique: An AP view of the chest. Comparison: January 01, 2019. Findings: The heart is normal. NG tube is identified with the tip overlying the body of the stomach. Contrast is identified within the kidneys and ureters. No infiltrate, pleural effusion, pneumothorax is identified. Impression: NG tube identified overlying the body of the stomach Dictated by Karen Lainez MD @ Jun 23 2019 11:36PM Signed by Dr. Karen Lainez @ Jun 23 2019 11:36PM
[2019-06-24] MEDS: Piperacillin/Tazobactam 3.375 GM in Sodium Chloride 0.9% 50 ML IV SCH ×4 (00:10→22:27)
[2019-06-24] MEDS: Lactated Ringers 1,000 ML IV SCH ×3 (01:04→18:48)
[2019-06-24] MEDS: Pantoprazole 40 MG in Sodium Chloride 0.9% 10 ML IV SCH (06:42)
[2019-06-24 07:09] LABS: POTASSIUM,K 3.9 mmol/L (3.5-5.1)
[2019-06-24 07:10] LABS: CARBON DIOXIDE,CO2 29.2 mmol/L (21.0-32.0)
--- NOTE | 2019-06-24 14:02 | CONS ---
DATE OF CONSULTATION: 06/23/2019 DATE OF : 1950 PRIMARY CARE PHYSICIAN: Sim Whitlock M.D. This is a consult from SAMIR Long, ER provider. CONSULTING QUESTION: SBO. HISTORY OF PRESENT ILLNESS: The patient is a 68 years lady and small framed, had history of SBO and operated on by Dr. More about 1-1/2 year ago, only lysis of adhesion, no bowel resection, seen in emergency room for 2-day history of severe abdominal pain with nausea and vomiting. The patient remarked that yesterday she woke up fine, and by about 8 o'clock in the morning she suddenly felt a lot of pain, and at that point the pain was 9/10 on the pain scale. She ate her breakfast and had 5 times emesis. Since then, she did not eat or drink anything. She took rest and sought help in the emergency room the next day, that is today. While in the emergency room, CAT scan shows dilated loop of bowel consistent with SBO. The patient got some Toradol and Surgery was called for consult. The patient currently denies any abdominal pain and denied nausea, vomiting. PAST SURGICAL HISTORY: Normal vaginal delivery x4, exploratory laparotomy 1-1/2 year ago, laparoscopic gallbladder surgery, and cardiac ablation in 2007. PAST MEDICAL HISTORY: Denied diabetes, DE, CVA hypertension. The patient had 2 episodes of PSVT and is managed by Dr. Whitlock, her primary care provider. ALLERGIES: Please refer to nursing for details. MEDICATIONS: Please refer to nursing for details. SOCIAL HISTORY: Denied tobacco or alcohol abuse. FAMILY HISTORY: Noncontributory. PHYSICAL EXAMINATION: GENERAL: A very pleasant lady, in no acute distress. Smiled to the doctor, very polite and very, very pleasant. HEENT: Normocephalic, atraumatic. Sclerae are anicteric. LUNGS: Clear to auscultation. HEART: Regular rate and rhythm. ABDOMEN: Soft. No distention and nontender with bowel sounds in all 4 quadrants. Little bit subdued bowel sounds, but there was no high pitch or gushing bowel sounds, none of those. Well-healed lower midline surgical incision. No hernia appreciated. LABORATORY DATA: Laboratory values upon consultation; white count 17.6, H and H are 14 and 42, platelets 294. INR is 0.98. D-dimer is 0.29 and lactate is 1.4. Sodium is 139, potassium is 4.1, BUN is 26, creatinine is 0.9. The patient is very dry. Glucose is 134. BNP checked 3 years ago was 86. Urine has no signs or symptoms of urinary tract infection. CAT scan as alluded to above. IMPRESSION: 1-1/2 year status post exploratory laparotomy for bowel obstruction and patient now present with dilated loop of bowel and nauseated and upon seeing the patient in the emergency room, pain has been largely subsided. Abdomen is soft and with bowel sounds. We will insert an NG tube, decompression, conservative management, follow with serial abdominal exams and serial lab works. Plan has been explained to the patient. The whole idea is to dodge her second surgery. Patient is very appreciative of that and patient is also aware if the NG tube decompression and conservative management fails, the patient still needs to have 2nd surgery. The patient was understanding. As always, thank you for the kind referral. RAMIRO HOPKINS /[id number]
[2019-06-24] MEDS: Benzocaine 20% Topical Spray UD MUCMEM PRN ×2 (14:46→18:47)
[2019-06-24] MEDS ORDERED: Bisacodyl 10 MG Supp RECTAL ONE (17:41)
[2019-06-25] MEDS: Ketorolac 30 MG/ML SDV IVPUSH PRN (05:04)
[2019-06-25] MEDS: Piperacillin/Tazobactam 3.375 GM in Sodium Chloride 0.9% 50 ML IV SCH ×3 (06:23→22:46)
[2019-06-25] MEDS: Pantoprazole 40 MG in Sodium Chloride 0.9% 10 ML IV SCH (06:30)
[2019-06-25 07:09] LABS: BLOOD UREA NITROGEN,BUN 28 mg/dL (7.0-18.0); CARBON DIOXIDE,CO2 28.2 mmol/L (21.0-32.0); CHLORIDE,CL 108 mmol/L (98-107); GLUCOSE RANDOM 101 mg/dL (74-106); POTASSIUM,K 3.8 mmol/L (3.5-5.1); SODIUM,NA 143 mmol/L (136-145)
[2019-06-25] MEDS ORDERED: Bisacodyl 10 MG Supp RECTAL ONE (08:42)
--- NOTE | 2019-06-25 09:53 | CT ---
INDICATION: Worsening small bowel obstruction TECHNIQUE: CT abdomen and pelvis without contrast. COMPARISON: 06/23/2019. FINDINGS: Lower chest: There are new bilateral pleural effusions, right greater than left. Liver: Normal in size and attenuation. No masses. Gallbladder and bile ducts: Post cholecystectomy. Pancreas: Unremarkable. No mass or inflammation. Spleen: Normal in size. No masses. Adrenal glands: Normal in size. No nodules. Kidneys: Single tiny nonobstructive stones in the right kidney. Kidneys are otherwise unremarkable. GI tract: Diffuse fluid-filled distention of the small bowel consistent with a small-bowel obstruction. This appears to have slightly worsened. A transition point is suspected in the right lower quadrant. Colon remains decompressed. Appendix is normal. Vasculature: Abdominal aorta is normal in caliber. Lymph nodes: No lymphadenopathy. Abdominal wall/Omentum/Peritoneum: Minimal free fluid is adjacent to the liver. No free air. Pelvis: Unremarkable. No pelvic masses. Bones: Unremarkable for age. IMPRESSION: Small bowel obstruction with interval worsening of small bowel dilatation. No other complications or changes from the prior exam. Please note that all CT scans at this facility use dose modulation, iterative reconstruction, and/or weight-based dosing when appropriate to reduce radiation dose to as low as reasonably achievable. Dictated by Teddy Elizondo MD @ Jun 25 2019 9:38AM Signed by Dr. Teddy Elizondo @ Jun 25 2019 9:50AM
--- NOTE | 2019-06-25 10:25 | PCM.SURGPN ---
- General Info Date of Service: 06/25/19 Functional Status: Reports: Pain Controlled ("miserable when sit up or move around this morning. no flatus") - Patient Data Vitals - Most Recent: Last Vital Signs Temp 98.6 F 06/25/19 07:49 Pulse 86 06/25/19 07:49 Resp 16 06/25/19 07:49 BP 111/53 L 06/25/19 07:49 Pulse Ox 93 L 06/25/19 07:49 Weight - Most Recent: 118 lb 11.2 oz I&O - Last 24 Hours: Intake & Output 06/24/19 06/25/19 06/25/19 22:59 06:59 14:59 Intake Total 1515 1612 Output Total 455 200 Balance 1060 1412 Lab Results Last 24 Hrs: Laboratory Results - last 24 hr 06/25/19 06/25/19 Range/Units 06:28 06:28 WBC 9.59 (4.0-11.0) K/uL RBC 3.86 L (4.30-5.90) M/uL Hgb 11.6 L (12.0-16.0) g/dL Hct 35.4 L (36.0-46.0) % MCV 91.7 (80.0-98.0) fL MCH 30.1 (27.0-32.0) pg MCHC 32.8 (31.0-37.0) g/dL RDW Std Deviation 43.5 (28.0-62.0) fl RDW Coeff of Arianne 13 (11.0-15.0) % Plt Count 203 (150-400) K/uL MPV 9.80 (7.40-12.00) fL Neut % (Auto) 84.2 H (48.0-80.0) % Lymph % (Auto) 6.5 L (16.0-40.0) % [place] % (Auto) 9.2 (0.0-15.0) % Eos % (Auto) 0.0 (0.0-7.0) % Baso % (Auto) 0.1 (0.0-1.5) % Neut # (Auto) 8.1 H (1.4-5.7) K/uL Lymph # (Auto) 0.6 (0.6-2.4) K/uL [place] # (Auto) 0.9 H (0.0-0.8) K/uL Eos # (Auto) 0.0 (0.0-0.7) K/uL Baso # (Auto) 0.0 (0.0-0.1) K/uL Nucleated RBC % 0.0 /100WBC Nucleated RBCs # 0 K/uL Sodium 143 (136-145) mmol/L Potassium 3.8 (3.5-5.1) mmol/L Chloride 108 H (98-107) mmol/L Carbon Dioxide 28.2 (21.0-32.0) mmol/L BUN 28 H (7.0-18.0) mg/dL Creatinine 0.7 (0.6-1.0) mg/dL Est Cr Clr Drug Dosing 65.38 mL/min Estimated GFR (MDRD) > 60.0 ml/min Glucose 101 (74-106) mg/dL Calcium 7.8 L (8.5-10.1) mg/dL Total Bilirubin 0.8 (0.2-1.0) mg/dL AST 16 (15-37) IU/L ALT 24 (14-63) IU/L Alkaline Phosphatase 51 (46-116) U/L Total Protein 4.9 L (6.4-8.2) g/dL Albumin 2.4 L (3.4-5.0) g/dL Globulin 2.5 L (2.6-4.0) g/dL Albumin/Globulin Ratio 1.0 (0.9-1.6) Med Orders - Current: Current Medications Benzocaine (Hurricaine One 20%) 1 each MUCMEM Q4HR PRN PRN Reason: Sore Throat Last Admin: 06/24/19 18:47 Dose: 1 each Lactated Ringer's (Ringers, Lactated) 1,000 mls @ 125 mls/hr IV ASDIRECTED [facility] Last Admin: 06/24/19 18:48 Dose: 125 mls/hr Piperacillin Sod/Tazobactam (Sod 3.375 gm/ Sodium Chloride) 50 mls @ 100 mls/ hr IV Q8H [facility] Last Admin: 06/25/19 06:23 Dose: 100 mls/hr Pantoprazole Sodium 40 mg/ (Sodium Chloride) 10 mls @ 300 mls/hr IV ACBREAKFAST [facility] Last Admin: 06/25/19 06:30 Dose: 300 mls/hr Ketorolac Tromethamine (Toradol) 30 mg IVPUSH Q8H PRN PRN Reason: Pain Stop: 06/28/19 23:01 Last Admin: 06/25/19 05:04 Dose: 30 mg Morphine Sulfate (Morphine) 2 mg IVPUSH Q8H PRN PRN Reason: Pain Ondansetron HCl (Zofran) 4 mg IVPUSH Q8H PRN PRN Reason: Nausea/Vomiting Sodium Chloride (Saline Flush) 10 ml FLUSH ASDIRECTED PRN PRN Reason: Keep Vein Open Last Admin: 06/23/19 23:15 Dose: 10 ml Sodium Chloride (Saline Flush) 2.5 ml FLUSH ASDIRECTED PRN PRN Reason: Keep Vein Open Last Admin: 06/23/19 23:16 Dose: 2.5 ml Discontinued Medications Benzocaine (Hurricaine One 20%) 2 each MUCMEM ONETIME ONE Stop: 06/23/19 22:43 Last Admin: 06/23/19 23:15 Dose: 2 each Bisacodyl (Dulcolax) 10 mg RECTAL ONETIME ONE Stop: 06/24/19 17:42 Last Admin: 06/24/19 17:53 Dose: 10 mg Bisacodyl (Dulcolax) 10 mg RECTAL ONETIME ONE Stop: 06/25/19 08:43 Last Admin: 06/25/19 10:14 Dose: Not Given Sodium Chloride (Normal Saline) 1,000 mls @ 999 mls/hr IV STAT ONE Stop: 06/23/19 20:43 Last Admin: 06/23/19 19:54 Dose: 999 mls/hr Iopamidol (Isovue Multipack-370 (76%)) 100 ml IVPUSH ONETIME ONE Stop: 06/23/19 19:57 Last Admin: 06/23/19 20:22 Dose: 100 ml Ketorolac Tromethamine (Toradol) 30 mg IVPUSH ONETIME ONE Stop: 06/23/19 19:36 Last Admin: 06/23/19 19:54 Dose: 30 mg - Exam GI/Abdominal Exam: Distended, Guarding (tight abd, ngt output 300) Sepsis Event Note - Evaluation Sepsis Screening Result: No Definite Risk - Focused Exam Vital Signs: Vital Signs Temp Pulse Resp BP Pulse Ox 06/25/19 07:49 98.6 F 86 16 111/53 L 93 L 06/25/19 04:00 98.4 F 88 16 125/57 L 93 L 06/25/19 00:13 99.3 F 96 17 120/58 L 94 L Date Exam was Performed: 06/25/19 Time Exam was Performed: 10:22 - Problem List Review Problem List Initiated/Reviewed/Updated: Yes - My Orders Last 24 Hours: Active Orders 24 hr Category Date Time Status CBC WITH AUTO DIFF [HEME] AM Lab 06/26/19 05:11 Ordered COMPREHENSIVE METABOLIC PN,CMP [CHEM] AM Lab 06/26/19 05:11 Ordered LACTIC ACID,WHOLE BLOOD [BG] Routine Lab 06/25/19 10:13 Received TYPE AND SCREEN [BBK] Stat Lab 06/25/19 10:13 Received Benzocaine [Hurricaine One 20%] Med 06/24/19 11:14 Active 1 each MUCMEM Q4HR PRN Medication Orders Benzocaine (Hurricaine One 20%) 1 each MUCMEM Q4HR PRN PRN Reason: Sore Throat Last Admin: 06/24/19 18:47 Dose: 1 each Admin: 06/24/19 14:46 Dose: 1 each Lactated Ringer's (Ringers, Lactated) 1,000 mls @ 125 mls/hr IV ASDIRECTED [facility] Last Admin: 06/24/19 18:48 Dose: 125 mls/hr Infusion: 06/24/19 18:13 Dose: 125 mls/hr Admin: 06/24/19 10:13 Dose: 125 mls/hr Infusion: 06/24/19 09:04 Dose: 125 mls/hr Admin: 06/24/19 01:04 Dose: 125 mls/hr Piperacillin Sod/Tazobactam (Sod 3.375 gm/ Sodium Chloride) 50 mls @ 100 mls/ hr IV Q8H [facility] Last Admin: 06/25/19 06:23 Dose: 100 mls/hr Infusion: 06/24/19 22:57 Dose: 100 mls/hr Admin: 06/24/19 22:27 Dose: 100 mls/hr Infusion: 06/24/19 15:13 Dose: 100 mls/hr Admin: 06/24/19 14:43 Dose: 100 mls/hr Infusion: 06/24/19 07:15 Dose: 100 mls/hr Admin: 06/24/19 06:45 Dose: 100 mls/hr Infusion: 06/24/19 00:40 Dose: 100 mls/hr Admin: 06/24/19 00:10 Dose: 100 mls/hr Pantoprazole Sodium 40 mg/ (Sodium Chloride) 10 mls @ 300 mls/hr IV ACBREAKFAST [facility] Last Admin: 06/25/19 06:30 Dose: 300 mls/hr Infusion: 06/24/19 06:44 Dose: 300 mls/hr Admin: 06/24/19 06:42 Dose: 300 mls/hr Ketorolac Tromethamine (Toradol) 30 mg IVPUSH Q8H PRN PRN Reason: Pain Stop: 06/28/19 23:01 Last Admin: 06/25/19 05:04 Dose: 30 mg Morphine Sulfate (Morphine) 2 mg IVPUSH Q8H PRN PRN Reason: Pain Ondansetron HCl (Zofran) 4 mg IVPUSH Q8H PRN PRN Reason: Nausea/Vomiting Sodium Chloride (Saline Flush) 10 ml FLUSH ASDIRECTED PRN PRN Reason: Keep Vein Open Last Admin: 06/23/19 23:15 Dose: 10 ml Sodium Chloride (Saline Flush) 2.5 ml FLUSH ASDIRECTED PRN PRN Reason: Keep Vein Open Last Admin: 06/23/19 23:16 Dose: 2.5 ml - Assessment Assessment (Free Text/Narrative):: ct , interval worsening sbo; and also hurting more when moving around, "miserable"; proceed w surgery ex lap, poss bowel resection poss ostomy, pt concur - Plan Plan (Free Text/Narrative):: ct , interval worsening sbo; and also hurting more when moving around, "miserable"; proceed w surgery ex lap, poss bowel resection poss ostomy, pt concur
[2019-06-25] MEDS ORDERED: Rocuronium 100 MG/10 ML Syringe ONE (10:34)
[2019-06-25] MEDS ORDERED: fentaNYL 250 MCG/5 ML SDV ONE (10:34)
[2019-06-25] MEDS ORDERED: Ondansetron 4 MG/2 ML SDV ONE (10:34)
[2019-06-25] MEDS ORDERED: Lidocaine 2% 5 ML SDV ONE (10:34)
[2019-06-25] MEDS ORDERED: Propofol 200 MG/20 ML SDV ONE (10:34)
[2019-06-25] MEDS ORDERED: Midazolam 1 MG/ML 2 ML SDV ONE (10:34)
--- NOTE | 2019-06-25 10:48 | PCM.PREANE ---
Preanesthetic Assessment - Anesthesia/Transfusion/Family Hx Anesthesia History: Prior Anesthesia Without Reaction Family History of Anesthesia Reaction: No Transfusion History: Prior Transfusion Without Reaction - Review of Systems General: No Symptoms Pulmonary: No Symptoms Cardiovascular: No Symptoms Gastrointestinal: Abdominal Pain, Constipation, Nausea Neurological: No Symptoms Other: Reports: None - Physical Assessment NPO Status Date: 06/25/19 NPO Status Time: 08:50 Vital Signs: Last Vital Signs Temp 98.6 F 06/25/19 07:49 Pulse 86 06/25/19 07:49 Resp 16 06/25/19 07:49 BP 111/53 L 06/25/19 07:49 Pulse Ox 93 L 06/25/19 07:49 Height: 5 ft 5 in Weight: 53.841 kg ASA Class: 3E Mental Status: Alert & Oriented x3 Airway Class: Mallampati = 2 Dentition: Reports: Normal Dentition Thyro-Mental Finger Breadths: 3 Mouth Opening Finger Breadths: 3 ROM/Head Extension: Limited/Partial Lungs: Clear to Auscultation, Normal Respiratory Effort Cardiovascular: Regular Rate, Regular Rhythm - Lab Values: Laboratory Last Values WBC 9.59 K/uL (4.0-11.0) 06/25/19 06:28 RBC 3.86 M/uL (4.30-5.90) L 06/25/19 06:28 Hgb 11.6 g/dL (12.0-16.0) L 06/25/19 06:28 Hct 35.4 % (36.0-46.0) L 06/25/19 06:28 MCV 91.7 fL (80.0-98.0) 06/25/19 06:28 MCH 30.1 pg (27.0-32.0) 06/25/19 06:28 MCHC 32.8 g/dL (31.0-37.0) 06/25/19 06:28 RDW Std Deviation 43.5 fl (28.0-62.0) 06/25/19 06:28 RDW Coeff of Arianne 13 % (11.0-15.0) 06/25/19 06:28 Plt Count 203 K/uL (150-400) 06/25/19 06:28 MPV 9.80 fL (7.40-12.00) 06/25/19 06:28 Neut % (Auto) 84.2 % (48.0-80.0) H 06/25/19 06:28 Lymph % (Auto) 6.5 % (16.0-40.0) L 06/25/19 06:28 [place] % (Auto) 9.2 % (0.0-15.0) 06/25/19 06:28 Eos % (Auto) 0.0 % (0.0-7.0) 06/25/19 06:28 Baso % (Auto) 0.1 % (0.0-1.5) 06/25/19 06:28 Neut # (Auto) 8.1 K/uL (1.4-5.7) H 06/25/19 06:28 Lymph # (Auto) 0.6 K/uL (0.6-2.4) 06/25/19 06:28 [place] # (Auto) 0.9 K/uL (0.0-0.8) H 06/25/19 06:28 Eos # (Auto) 0.0 K/uL (0.0-0.7) 06/25/19 06:28 Baso # (Auto) 0.0 K/uL (0.0-0.1) 06/25/19 06:28 Nucleated RBC % 0.0 /100WBC 06/25/19 06:28 Nucleated RBCs # 0 K/uL 06/25/19 06:28 Lactate 1.3 mmol/L (0.20-2.00) 06/25/19 10:13 Sodium 143 mmol/L (136-145) 06/25/19 06:28 Potassium 3.8 mmol/L (3.5-5.1) 06/25/19 06:28 Chloride 108 mmol/L (98-107) H 06/25/19 06:28 Carbon Dioxide 28.2 mmol/L (21.0-32.0) 06/25/19 06:28 BUN 28 mg/dL (7.0-18.0) H 06/25/19 06:28 Creatinine 0.7 mg/dL (0.6-1.0) 06/25/19 06:28 Est Cr Clr Drug Dosing 65.38 mL/min 06/25/19 06:28 Estimated GFR (MDRD) > 60.0 ml/min 06/25/19 06:28 Glucose 101 mg/dL (74-106) 06/25/19 06:28 Calcium 7.8 mg/dL (8.5-10.1) L 06/25/19 06:28 Total Bilirubin 0.8 mg/dL (0.2-1.0) 06/25/19 06:28 AST 16 IU/L (15-37) 06/25/19 06:28 ALT 24 IU/L (14-63) 06/25/19 06:28 Alkaline Phosphatase 51 U/L (46-116) 06/25/19 06:28 Total Protein 4.9 g/dL (6.4-8.2) L 06/25/19 06:28 Albumin 2.4 g/dL (3.4-5.0) L 06/25/19 06:28 Globulin 2.5 g/dL (2.6-4.0) L 06/25/19 06:28 Albumin/Globulin Ratio 1.0 (0.9-1.6) 06/25/19 06:28 Lipase 152 U/L (73-393) 06/23/19 19:21 Urine Color YELLOW 06/23/19 19:27 Urine Appearance CLEAR 06/23/19 19:27 Urine pH 6.5 (5.0-8.0) 06/23/19 19:27 Ur Specific [place] 1.015 (1.001-1.035) 06/23/19 19:27 Urine Protein NEGATIVE mg/dL (NEGATIVE) 06/23/19 19:27 Urine Glucose (UA) NEGATIVE mg/dL (NEGATIVE) 06/23/19 19:27 Urine Ketones 15 mg/dL (NEGATIVE) H 06/23/19 19:27 Urine Occult Blood NEGATIVE (NEGATIVE) 06/23/19 19:27 Urine Nitrite NEGATIVE (NEGATIVE) 06/23/19 19:27 Urine Bilirubin NEGATIVE (NEGATIVE) 06/23/19 19:27 Urine Urobilinogen 0.2 EU/dL (<2.0) 06/23/19 19:27 Ur Leukocyte Esterase NEGATIVE (NEGATIVE) 06/23/19 19:27 - Allergies Allergies/Adverse Reactions: Allergies Allergy/AdvReac Type Severity Reaction Status Date / Time levofloxacin [From Levaquin] AdvReac Mild unknown Verified 06/24/19 00:34 - Blood Blood Available: Yes - Anesthesia Plan Free Text/Narrative:: 2017 - Echo - EF 60%, no aortic stenosis Recurrent PSVT s/p ablation. Patient states it happens maybe once a month and lasts seconds to minutes before self resolution. Acute worsening bowel obstruction; to OR for Exploratory Laparotomy per Dr Perez. Pre-Op Medication Ordered: None - Acknowledgements Anesthesia Type Planned: General Anesthesia Pt an Appropriate Candidate for the Planned Anesthesia: Yes Alternatives and Risks of Anesthesia Discussed w Pt/Guardian: Yes Pt/Guardian Understands and Agrees with Anesthesia Plan: Yes PreAnesthesia Questionnaire HEENT History: Reports: Impaired Vision Other HEENT History: glasses Cardiovascular History: Reports: Other (See Below) Other Cardiovascular History: PSVT Respiratory History: Reports: None Gastrointestinal History: Reports: Chronic Constipation, Other (See Below) ( Acute Bowel obstruction) 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 History: Reports: Other (See Below) Other 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 History: Pelvis Congestion Syndrome [employer]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: Musculoskeletal History: Reports: Osteoporosis Other Musculoskeletal History: fx to Left ulna Neurological History: Reports: None Psychiatric History: Reports: None Endocrine/Metabolic History: Reports: None Hematologic History: Reports: None Immunologic History: Reports: None Oncologic (Cancer) History: Reports: None Dermatologic History: Reports: None - Infectious Disease History Infectious Disease History: Reports: Measles, Mumps - Past Surgical History Head Surgeries/Procedures: Reports: None HEENT Surgical History: Reports: None Cardiovascular Surgical History: Reports: Cardiac Ablation, Other (See Below) ( PSVT) Respiratory Surgical History: Reports: None GI Surgical History: Reports: None Female Surgical History: Reports: None Endocrine Surgical History: Reports: None Neurological Surgical History: Reports: None Musculoskeletal Surgical History: Reports: None Oncologic Surgical History: Reports: None Dermatological Surgical History: Reports: None - SUBSTANCE USE Smoking Status *Q: Never Smoker Recreational Drug Use History: No - HOME MEDS Home Medications: Home Meds Ascorbic Acid [Vitamin C] 580 mg PO DAILY 12/27/17 [History] Aspirin 81 mg PO DAILY 12/27/17 [History] Cholecalciferol (Vitamin D3) [Vitamin D3] 2,000 unit PO DAILY 12/27/17 [History] Erythromycin Base [Erythromycin 0.5% Ophth Oint] 1 applic OP BEDTIME 12/27/17 [ History] Fish Oil/DHA/EPA [Fish Oil 1,200 MG] 2 each PO BID 12/27/17 [History] Metoprolol Succinate [Toprol XL] 25 mg PO DAILY 12/27/17 [History] Multivitamin [Multivitamins] 1 each PO DAILY 12/27/17 [History] Ubidecarenone [Coq-10] 100 mg PO DAILY 12/27/17 [History] Carboxymethyl/Gly/Poly80/Pf [Refresh Optive Advanced Drops] 1 drop EYEBOTH . NEEDED PRN 01/01/19 [History] Cyanocobalamin (Vitamin B-12) [B-12] 1,000 mcg PO DAILY 01/01/19 [History] Magnesium Glycinate [Mag Glycinate] 300 mg PO BID 01/01/19 [History] Polyethylene Glycol 3350 [MiraLAX] 1.5 tbsp PO DAILY 01/01/19 [History] - CURRENT (IN HOUSE) MEDS Current Meds: Current Medications Benzocaine (Hurricaine One 20%) 1 each MUCMEM Q4HR PRN PRN Reason: Sore Throat Last Admin: 06/24/19 18:47 Dose: 1 each Lactated Ringer's (Ringers, Lactated) 1,000 mls @ 125 mls/hr IV ASDIRECTED [facility] Last Admin: 06/24/19 18:48 Dose: 125 mls/hr Piperacillin Sod/Tazobactam (Sod 3.375 gm/ Sodium Chloride) 50 mls @ 100 mls/ hr IV Q8H [facility] Last Admin: 06/25/19 06:23 Dose: 100 mls/hr Pantoprazole Sodium 40 mg/ (Sodium Chloride) 10 mls @ 300 mls/hr IV ACBREAKFAST [facility] Last Admin: 06/25/19 06:30 Dose: 300 mls/hr Ketorolac Tromethamine (Toradol) 30 mg IVPUSH Q8H PRN PRN Reason: Pain Stop: 06/28/19 23:01 Last Admin: 06/25/19 05:04 Dose: 30 mg Morphine Sulfate (Morphine) 2 mg IVPUSH Q8H PRN PRN Reason: Pain Ondansetron HCl (Zofran) 4 mg IVPUSH Q8H PRN PRN Reason: Nausea/Vomiting Sodium Chloride (Saline Flush) 10 ml FLUSH ASDIRECTED PRN PRN Reason: Keep Vein Open Last Admin: 06/23/19 23:15 Dose: 10 ml Sodium Chloride (Saline Flush) 2.5 ml FLUSH ASDIRECTED PRN PRN Reason: Keep Vein Open Last Admin: 06/23/19 23:16 Dose: 2.5 ml Discontinued Medications Benzocaine (Hurricaine One 20%) 2 each MUCMEM ONETIME ONE Stop: 06/23/19 22:43 Last Admin: 06/23/19 23:15 Dose: 2 each Bisacodyl (Dulcolax) 10 mg RECTAL ONETIME ONE Stop: 06/24/19 17:42 Last Admin: 06/24/19 17:53 Dose: 10 mg Bisacodyl (Dulcolax) 10 mg RECTAL ONETIME ONE Stop: 06/25/19 08:43 Last Admin: 06/25/19 10:14 Dose: Not Given Fentanyl (Sublimaze) Confirm Administered Dose 250 mcg .ROUTE .STK-MED ONE Stop: 06/25/19 10:35 Sodium Chloride (Normal Saline) 1,000 mls @ 999 mls/hr IV STAT ONE Stop: 06/23/19 20:43 Last Admin: 06/23/19 19:54 Dose: 999 mls/hr Iopamidol (Isovue Multipack-370 (76%)) 100 ml IVPUSH ONETIME ONE Stop: 06/23/19 19:57 Last Admin: 06/23/19 20:22 Dose: 100 ml Ketorolac Tromethamine (Toradol) 30 mg IVPUSH ONETIME ONE Stop: 06/23/19 19:36 Last Admin: 06/23/19 19:54 Dose: 30 mg Lidocaine (Xylocaine-Mpf 2%) Confirm Administered Dose 5 ml .ROUTE .STK-MED ONE Stop: 06/25/19 10:35 Midazolam HCl (Versed 1 Mg/Ml) Confirm Administered Dose 2 mg .ROUTE .STK-MED ONE Stop: 06/25/19 10:35 Ondansetron HCl (Zofran) Confirm Administered Dose 4 mg .ROUTE .STK-MED ONE Stop: 06/25/19 10:35 Propofol (Diprivan 20 Ml) Confirm Administered Dose 200 mg .ROUTE .STK-MED ONE Stop: 06/25/19 10:35 Rocuronium Britt (Zemuron) Confirm Administered Dose 100 mg .ROUTE .STK-MED ONE Stop: 06/25/19 10:35 Succinylcholine Chloride (Succinylcholine Chloride) Confirm Administered Dose 200 mg .ROUTE .[facility]-MED ONE Stop: 06/25/19 10:35
[2019-06-25] MEDS ORDERED: Bupivacaine 0.5% 30 ML SDV ONE (10:52)
[2019-06-25] MEDS ORDERED: ceFAZolin 1 GM Vial ONE (10:52)
[2019-06-25] MEDS ORDERED: Bupivacaine 25%/EPINEPHrine/PF 0 ML ONE (10:52)
[2019-06-25] MEDS ORDERED: ePHEDrine 50 MG/ML SDV ONE (11:48)
[2019-06-25] MEDS ORDERED: Phenylephrine/Normal Saline 100 MCG/ML 10 ML Syringe ONE (11:49)
[2019-06-25] MEDS ORDERED: Glycopyrrolate 0.2 MG/ML SDV ONE (11:51)
[2019-06-25] MEDS ORDERED: Metoprolol Tartrate 5 MG/5 ML SDV ONE (12:17)
[2019-06-25] MEDS ORDERED: HYDROmorphone 2 MG/ML Syringe ONE (12:44)
[2019-06-25] MEDS ORDERED: 50% Dextrose in Water 50 ML Syringe IVPUSH PRN (13:10)
[2019-06-25] MEDS ORDERED: EPINEPHrine 1:10,000 1 MG/10 ML Syringe IVPUSH PRN (13:10)
[2019-06-25] MEDS ORDERED: Albuterol 0.083% 2.5 MG/3 ML Neb Soln NEB PRN (13:10)
[2019-06-25] MEDS ORDERED: Atropine 0.1 MG/ML 10 ML Syringe IVPUSH PRN ×2 (13:10)
[2019-06-25] MEDS ORDERED: Naloxone 0.4 MG/ML Syringe IVPUSH PRN (13:10)
[2019-06-25] MEDS ORDERED: fentaNYL 100 MCG/2 ML SDV IVPUSH PRN (13:10)
--- NOTE | 2019-06-25 14:08 | PCM.POSTAN ---
POST ANESTHESIA ASSESSMENT - MENTAL STATUS Mental Status: Alert, Oriented - VITAL SIGNS Vital Signs: Last Vital Signs Temp 36.9 C 06/25/19 13:36 Pulse 98 06/25/19 14:01 Resp 12 06/25/19 14:01 BP 146/71 H 06/25/19 14:01 Pulse Ox 98 06/25/19 14:01 - RESPIRATORY Respiratory Status: Respiratory Rate WNL, Airway Patent, O2 Saturation Stable - CARDIOVASCULAR CV Status: Pulse Rate WNL, Blood Pressure Stable - GASTROINTESTINAL GI Status: No Symptoms - PAIN Pain Score: 0 - POST OP HYDRATION Hydration Status: Adequate & Stable - OBSERVATIONS Free Text/Narrative:: No anesthesia problems
[2019-06-25] MEDS ORDERED: Morphine PF 30 MG/30 ML PCA Vial IV PRN (14:15)
[2019-06-25] MEDS ORDERED: Lactated Ringers 1,000 ML IV SCH (14:15)
[2019-06-25] MEDS ORDERED: Ondansetron 4 MG/2 ML SDV IVPUSH PRN (14:19)
[2019-06-25 14:29] LABS: BLOOD UREA NITROGEN,BUN 30 mg/dL (7.0-18.0); CHLORIDE,CL 109 mmol/L (98-107); GLUCOSE RANDOM 101 mg/dL (74-106); POTASSIUM,K 3.9 mmol/L (3.5-5.1); SODIUM,NA 144 mmol/L (136-145)
--- NOTE | 2019-06-25 14:43 | PCM.OPNOTE ---
- General Post-Op/Procedure Note Date of Surgery/Procedure: 06/25/19 Operative Procedure(s): 1) ex lap. 2) ERIC. 3) placement of interceed Findings: hostile abdomen from prior surgery, 2 loops of bowel stucked to abd wall, and an adhesion band from ti to pelvis wall caused the internal hernia for the mechanical obstruction; and at least 4 - 6 more areas of severe adhesion, caused twisting of the bowel, all took down, no enterostomy or bowel resection; closed over interceed placement to RLQ; [id number] Pre Op Diagnosis: recurrent SBO Post-Op Diagnosis: Same Anesthesia Technique: General ET Tube Primary Surgeon: Thiago Perez Complications: None Condition: Stable Free Text/Narrative:: Intake & Output 06/24/19 06/25/19 06/25/19 22:59 06:59 14:59 Intake Total 1515 1612 Output Total 455 200 30 Balance 1060 1412 -30
[2019-06-25] MEDS: Lactated Ringers 1,000 ML IV SCH (15:18)
--- NOTE | 2019-06-25 15:51 | OR ---
SURGEON: Thiago Perez MD DATE OF PROCEDURE: 06/25/2019 PREOPERATIVE DIAGNOSIS: Small bowel obstruction. POSTOPERATIVE DIAGNOSIS: Small bowel obstruction. PROCEDURES PERFORMED: 1. Exploratory laparotomy. 2. Lysis of adhesion. 3. Placement of Interceed. PRIMARY SURGEON: Thiago Perez MD. COMPLICATIONS: None. FINDINGS: The patient has a very dilated loop of bowel upon gaining entrance to the abdomen and with some ascites. There is no bowel upon exploration, and the patient has a very hostile abdomen with several loops of bowel adhesion and at the same time was an adhesion band going from the mesentery to the abdominal wall in the pelvis and creating a stricture or internal hernia because of the adhesion band. There was no enterotomy during the exploration and there was no bowel resection. DESCRIPTION OF PROCEDURE: The patient was taken to operating room and placed in a supine position. Upon induction of general endotracheal anesthesia, the patient's abdomen was prepped and draped in a sterile fashion. A Alvarado was inserted. The patient on around the clock antibiotics and time-out was being called, the patient identified, procedure identified, and procedure then started. After assessment of full appropriate landmark, a midline incision using previous incision was made from the epigastrium down to the pelvis very very slowly and entered to the abdominal cavity at a very very slow situation because the patient had dilated bowel and the patient is not a very fat patient. Upon gaining entrance in the abdominal cavity, note several loops of bowel very very dilated, but there was no dusky or ischemic bowel noted and also ascites formation. Two loops of bowel, one close to the midline incision, one was close to the right lower quadrant, attached to the abdominal wall and required some takedown meticulously, and then running the bowel found out that the patient has an adhesion band and growth from the small bowel mesentery close to the terminal ileum, close to the abdominal wall in the pelvis. The loop of small bowel was enclosing by the adhesion band. Cutting the band, the loop of bowel immediately sprung back to life. On running the bowel, also noticed four more areas of adhesion and was able to take down all the adhesions from the terminal ileum all the way to the ligament of Treitz and squeezed out 1 L of fluid through the NG tube. NG tube position was confirmed and the liver was examined and the omentum was then pulled down and Interceed was placed in the right lower quadrant from a previous adhesion area. The abdominal incision was closed with a double strand #1 PDS followed with skin palomo. Prior to closing, instrument count and sponge count were correct. The patient was transferred to recovery room in hemodynamically stable condition. The patient tolerated the procedure well. There were no intraoperative complications. Dr. Perez was present through the whole procedure. RAMIRO / KELLIE /[id number] MTDChuy
--- NOTE | 2019-06-25 16:02 | PN ---
THC Physician - Brief Progress [id number]/24/2019 15:59[facility] Maribel Villarreal, [place] - MWN (ALMN) - MWN PRISCILLA HECTORAllysonDate of Service 06/25/2019 15:59HPI/Events of Note eICU Admission [id number] admitted for post-operative care post SBO with ERIC, and concern for AK I. History obtained primarily from review of EMR, and discussion with patient's excellent bedside he keegan Perez.PMH: prior cardiac ablation in 2007, prior abdominal surgeries (cholecystectomy, exlap)HP I: Patient had underwent lysis of adhesions for small bowel obstruction today. Postoperatively patie nt was noted to have reports of increased work of breathing, an elevated BUN and what appeared to be decreased urine output, prompting consultation of ICU for further management.Camera exam: Laying in b ed. Vitals monitor reviewed. Vitals: reviewedLabs: reviewedRadiology: reviewed, on CT abd/pelvis perf ormed today lung windows do not reveal evidence of pleural effusionsMeds: reviewedeICU Impression and Recommendations:Status post abdominal surgeryIncentive spirometry q1h while awake, to target goal fo r patientxs heightPain control per primary and surgical services, we are available to assist if ginger edPhysical therapy evaluation, taking patient out of bed to chair, and ambulation initiation per prim kelsea and surgical servicesReport of decreased urine output - mostly unchanged BUN and creatinine sugge sts against AKIStrict I/O, continue to trend urineIncreased work of breathing and tachycardia, of unc ertain etiology, differential including hypovolemia, VTE, ACS, or lingering sedation/anesthesia effec tTroponin, BNP, ABGD-dimer of uncertain utility in light of recent surgery, can consider lower extrem ity dopplers, however would not be a candidate for anticoagulation until cleared by surgeryDVT and GI prophylaxis as appropriate.Thank you for allowing us to participate in the care of this patient.The above note transcribed with the assistance of dictation software. Please excuse any errors.Interventi ons Major-Respiratory failure - evaluation and management
[2019-06-25] MEDS ORDERED: Lactated Ringers 1,000 ML IV ONE (19:53)
--- NOTE | 2019-06-25 19:56 | PN ---
THC Physician - Brief Progress [id number]/24/2019 19:55[facility] davidMaribelKSENIA - LEATHA (BENEDICTO) - PRISCILLA GILMOREDate of Service 06/25/2019 19:55HPI/Events of Note eICU Update NoteNotified of low urine output. 1 L LR bolus orderedInterventions Minor-Routine modifications to care plan (e.g. PRN medications for pain, fever)
[2019-06-26] MEDS: Lactated Ringers 1,000 ML IV SCH ×3 (01:12→19:31)
[2019-06-26] MEDS ORDERED: Sodium Chloride 0.9% 500 ML IV SCH ×2 (03:00→04:15)
--- NOTE | 2019-06-26 04:45 | PN ---
THC Physician - Brief Progress [id number]/25/2019 04:40[facility] CenterMaribel yates, KSENIA - LEATHA (BENEDICTO) - PRISCILLA GILMOREDate of Service 06/26/2019 04:40HPI/Events of Note I was notified about hypotension with a blood pressure of 85/38 with a map of 50. Ordered 50 0 mL of normal saline bolus.Recommended to validate the blood pressure by manual check, which showed blood pressure of 100/60.Lactic acid is 0.9.Recommend to get the smaller cuff as she is malnourished and cachectic. Also find a right location for the cuff to correlate the blood pressure with the manu al check.Oliguria, ordered another 500 mL of normal saline bolus.Discussed extensively with bedside dominic powell.Interventions Major-Hypotension - evaluation and managementIntermediate-Communication with other healthcare providers and/or family, Medication change / dose adjustment, Oliguria - evaluation and m anagement
[2019-06-26 04:48] LABS: BLOOD UREA NITROGEN,BUN 25 mg/dL (7.0-18.0); CARBON DIOXIDE,CO2 28.9 mmol/L (21.0-32.0); CHLORIDE,CL 111 mmol/L (98-107); GLUCOSE RANDOM 87 mg/dL (74-106); POTASSIUM,K 3.8 mmol/L (3.5-5.1); SODIUM,NA 144 mmol/L (136-145)
[2019-06-26] MEDS: Piperacillin/Tazobactam 3.375 GM in Sodium Chloride 0.9% 50 ML IV SCH ×3 (06:20→22:22)
[2019-06-26] MEDS: Pantoprazole 40 MG in Sodium Chloride 0.9% 10 ML IV SCH (07:15)
--- NOTE | 2019-06-26 08:52 | PN ---
THC Physician - Brief Progress [id number]/25/2019 08:43[facility] Maribel Villarreal, [place] - [facility] - MWN MTPRISCILLA PEREZAllysonDate of Service 06/26/2019 08:43HPI/Events of Note eICU Progress [id number] admitted for post-operative care post SBO with ERIC, and concern for NAOMY . History obtained primarily from review of EMR, and discussion with bedside RN.Issue overnight appea rs to be low urine output, for which patient has in total received 1L LR and 1L NSCamera exam: Laying in bed. Vitals monitor reviewed.Vitals: reviewedLabs: reviewedRadiology: reviewedMeds: reviewedeICU Impression and Recommendations:Report of decreased urine output - improving BUN and unchanged creatin ine suggests against AKIStrict I/O, continue to trend urineTarget urine output of >25-30ml/hr given r eported weight of 54-58kg. Would only give additional fluids if UOP drops below that threshold. Sugge st balanced rather than isotonic crystalloids to reduce risk of NAOMY given hyperchloremic stateStatus post abdominal surgeryIncentive spirometry q1h while awake, to target goal for patientxs heightPain c ontrol per primary and surgical services, we are available to assist if desiredPhysical therapy evalu ation, taking patient out of bed to chair, and ambulation initiation per primary and surgical service sDVT and GI prophylaxis as appropriate.Thank you for allowing us to participate in the care of this p atient.The above note transcribed with the assistance of dictation software. Please excuse any errors .Interventions Major-Other: decreased urine outputElectronically Signed by: IMELDA BROWN) on 1 08/27/2018 08:52
[2019-06-26] MEDS ORDERED: Pantoprazole 40 MG in Sodium Chloride 0.9% 10 ML IV SCH (09:00)
[2019-06-26] MEDS: Ketorolac 30 MG/ML SDV IVPUSH PRN (09:10)
--- NOTE | 2019-06-26 09:33 | PCM48HPAN ---
Post Anesthesia Note - EVALUATION WITHIN 48HRS OF ANESTHETIC Vital Signs in Normal Range: Yes Patient Participated in Evaluation: Yes Respiratory Function Stable: Yes Airway Patent: Yes Cardiovascular Function Stable: Yes Hydration Status Stable: Yes Pain Control Satisfactory: Yes Nausea and Vomiting Control Satisfactory: Yes Mental Status Recovered: Yes Vital Signs: Last Vital Signs Temp 98.2 F 06/26/19 06:00 Pulse 104 H 06/25/19 14:11 Resp 13 06/26/19 07:00 BP 105/60 06/26/19 07:00 Pulse Ox 97 06/26/19 07:00
--- NOTE | 2019-06-26 11:11 | PCM.SURGPN ---
- General Info Date of Service: 06/26/19 Functional Status: Reports: Other (CERTIFIED CODING SPECIALIST was not set up X 12 hrs; pt remarked pain was tolerable; and was given toradol for pain, not very good immediately after surgery.) - Patient Data Vitals - Most Recent: Last Vital Signs Temp 97.9 F 06/26/19 08:00 Pulse 79 06/26/19 09:00 Resp 14 06/26/19 09:00 BP 107/55 L 06/26/19 09:00 Pulse Ox 98 06/26/19 09:00 Weight - Most Recent: 129 lb 10.109 oz I&O - Last 24 Hours: Intake & Output 06/25/19 06/26/19 06/26/19 22:59 06:59 14:59 Intake Total 1000 2166 60 Output Total 315 250 90 Balance 685 1916 -30 Lab Results Last 24 Hrs: Laboratory Results - last 24 hr 06/25/19 06/25/19 06/25/19 Range/Units 10:13 10:30 14:02 WBC (4.0-11.0) K/uL RBC (4.30-5.90) M/uL Hgb (12.0-16.0) g/dL Hct (36.0-46.0) % MCV (80.0-98.0) fL MCH (27.0-32.0) pg MCHC (31.0-37.0) g/dL RDW Std Deviation (28.0-62.0) fl RDW Coeff of Arianne (11.0-15.0) % Plt Count (150-400) K/uL MPV (7.40-12.00) fL Neut % (Auto) (48.0-80.0) % Lymph % (Auto) (16.0-40.0) % Pine % (Auto) (0.0-15.0) % Eos % (Auto) (0.0-7.0) % Baso % (Auto) (0.0-1.5) % Neut # (Auto) (1.4-5.7) K/uL Lymph # (Auto) (0.6-2.4) K/uL Pine # (Auto) (0.0-0.8) K/uL Eos # (Auto) (0.0-0.7) K/uL Baso # (Auto) (0.0-0.1) K/uL Nucleated RBC % /100WBC Nucleated RBCs # K/uL ABG pH (7.35-7.45) ABG pCO2 (35-45) mmHG ABG pO2 (75-100) mmHG ABG HCO3 (22-26) mEq/L ABG Total CO2 ABG Base Excess (-2.0-2.0) Lactate (0.20-2.00) mmol/L Sodium 144 (136-145) mmol/L Potassium 3.9 (3.5-5.1) mmol/L Chloride 109 H (98-107) mmol/L Carbon Dioxide 28.0 (21.0-32.0) mmol/L BUN 30 H (7.0-18.0) mg/dL Creatinine 0.7 (0.6-1.0) mg/dL Est Cr Clr Drug Dosing 65.38 mL/min Estimated GFR (MDRD) > 60.0 ml/min Glucose 101 (74-106) mg/dL Calcium 7.7 L (8.5-10.1) mg/dL Magnesium 2.3 (1.8-2.4) mg/dL Total Bilirubin (0.2-1.0) mg/dL AST (15-37) IU/L ALT (14-63) IU/L Alkaline Phosphatase (46-116) U/L Troponin I (0.000-0.056) ng/mL B-Natriuretic Peptide (<100) PG/ML Total Protein (6.4-8.2) g/dL Albumin (3.4-5.0) g/dL Globulin (2.6-4.0) g/dL Albumin/Globulin Ratio (0.9-1.6) Blood Type A POSITIVE Antibody Screen NEGATIVE 06/25/19 06/25/19 06/25/19 Range/Units 14:05 16:10 16:28 WBC (4.0-11.0) K/uL RBC (4.30-5.90) M/uL Hgb (12.0-16.0) g/dL Hct (36.0-46.0) % MCV (80.0-98.0) fL MCH (27.0-32.0) pg MCHC (31.0-37.0) g/dL RDW Std Deviation (28.0-62.0) fl RDW Coeff of Arianne (11.0-15.0) % Plt Count (150-400) K/uL MPV (7.40-12.00) fL Neut % (Auto) (48.0-80.0) % Lymph % (Auto) (16.0-40.0) % Pine % (Auto) (0.0-15.0) % Eos % (Auto) (0.0-7.0) % Baso % (Auto) (0.0-1.5) % Neut # (Auto) (1.4-5.7) K/uL Lymph # (Auto) (0.6-2.4) K/uL Pine # (Auto) (0.0-0.8) K/uL Eos # (Auto) (0.0-0.7) K/uL Baso # (Auto) (0.0-0.1) K/uL Nucleated RBC % /100WBC Nucleated RBCs # K/uL ABG pH 7.354 (7.35-7.45) ABG pCO2 49 H (35-45) mmHG ABG pO2 113 H (75-100) mmHG ABG HCO3 27 H (22-26) mEq/L ABG Total CO2 25.3 ABG Base Excess 1.2 (-2.0-2.0) Lactate (0.20-2.00) mmol/L Sodium (136-145) mmol/L Potassium (3.5-5.1) mmol/L Chloride (98-107) mmol/L Carbon Dioxide (21.0-32.0) mmol/L BUN (7.0-18.0) mg/dL Creatinine (0.6-1.0) mg/dL Est Cr Clr Drug Dosing mL/min Estimated GFR (MDRD) ml/min Glucose (74-106) mg/dL Calcium (8.5-10.1) mg/dL Magnesium 2.0 (1.8-2.4) mg/dL Total Bilirubin (0.2-1.0) mg/dL AST (15-37) IU/L ALT (14-63) IU/L Alkaline Phosphatase (46-116) U/L Troponin I < 0.050 (0.000-0.056) ng/mL B-Natriuretic Peptide (<100) PG/ML Total Protein (6.4-8.2) g/dL Albumin (3.4-5.0) g/dL Globulin (2.6-4.0) g/dL Albumin/Globulin Ratio (0.9-1.6) Blood Type Antibody Screen 06/25/19 06/26/19 06/26/19 Range/Units 16:28 04:15 04:18 WBC 10.38 (4.0-11.0) K/uL RBC 3.42 L (4.30-5.90) M/uL Hgb 10.3 L (12.0-16.0) g/dL Hct 31.5 L (36.0-46.0) % MCV 92.1 (80.0-98.0) fL MCH 30.1 (27.0-32.0) pg MCHC 32.7 (31.0-37.0) g/dL RDW Std Deviation 43.7 (28.0-62.0) fl RDW Coeff of Arianne 13 (11.0-15.0) % Plt Count 169 (150-400) K/uL MPV 9.30 (7.40-12.00) fL Neut % (Auto) 83.3 H (48.0-80.0) % Lymph % (Auto) 9.2 L (16.0-40.0) % Pine % (Auto) 6.5 (0.0-15.0) % Eos % (Auto) 0.8 (0.0-7.0) % Baso % (Auto) 0.2 (0.0-1.5) % Neut # (Auto) 8.7 H (1.4-5.7) K/uL Lymph # (Auto) 1.0 (0.6-2.4) K/uL Pine # (Auto) 0.7 (0.0-0.8) K/uL Eos # (Auto) 0.1 (0.0-0.7) K/uL Baso # (Auto) 0.0 (0.0-0.1) K/uL Nucleated RBC % 0.0 /100WBC Nucleated RBCs # 0 K/uL ABG pH (7.35-7.45) ABG pCO2 (35-45) mmHG ABG pO2 (75-100) mmHG ABG HCO3 (22-26) mEq/L ABG Total CO2 ABG Base Excess (-2.0-2.0) Lactate (0.20-2.00) mmol/L Sodium 144 (136-145) mmol/L Potassium 3.8 (3.5-5.1) mmol/L Chloride 111 H (98-107) mmol/L Carbon Dioxide 28.9 (21.0-32.0) mmol/L BUN 25 H (7.0-18.0) mg/dL Creatinine 0.7 (0.6-1.0) mg/dL Est Cr Clr Drug Dosing 65.81 mL/min Estimated GFR (MDRD) > 60.0 ml/min Glucose 87 (74-106) mg/dL Calcium 7.0 L (8.5-10.1) mg/dL Magnesium (1.8-2.4) mg/dL Total Bilirubin 0.8 (0.2-1.0) mg/dL AST 23 (15-37) IU/L ALT 19 (14-63) IU/L Alkaline Phosphatase 40 L (46-116) U/L Troponin I (0.000-0.056) ng/mL B-Natriuretic Peptide 63 (<100) PG/ML Total Protein 4.1 L (6.4-8.2) g/dL Albumin 1.8 L (3.4-5.0) g/dL Globulin 2.3 L (2.6-4.0) g/dL Albumin/Globulin Ratio 0.8 L (0.9-1.6) Blood Type Antibody Screen 06/26/19 Range/Units 04:18 WBC (4.0-11.0) K/uL RBC (4.30-5.90) M/uL Hgb (12.0-16.0) g/dL Hct (36.0-46.0) % MCV (80.0-98.0) fL MCH (27.0-32.0) pg MCHC (31.0-37.0) g/dL RDW Std Deviation (28.0-62.0) fl RDW Coeff of Arianne (11.0-15.0) % Plt Count (150-400) K/uL MPV (7.40-12.00) fL Neut % (Auto) (48.0-80.0) % Lymph % (Auto) (16.0-40.0) % Pine % (Auto) (0.0-15.0) % Eos % (Auto) (0.0-7.0) % Baso % (Auto) (0.0-1.5) % Neut # (Auto) (1.4-5.7) K/uL Lymph # (Auto) (0.6-2.4) K/uL Pine # (Auto) (0.0-0.8) K/uL Eos # (Auto) (0.0-0.7) K/uL Baso # (Auto) (0.0-0.1) K/uL Nucleated RBC % /100WBC Nucleated RBCs # K/uL ABG pH (7.35-7.45) ABG pCO2 (35-45) mmHG ABG pO2 (75-100) mmHG ABG HCO3 (22-26) mEq/L ABG Total CO2 ABG Base Excess (-2.0-2.0) Lactate 0.9 (0.20-2.00) mmol/L Sodium (136-145) mmol/L Potassium (3.5-5.1) mmol/L Chloride (98-107) mmol/L Carbon Dioxide (21.0-32.0) mmol/L BUN (7.0-18.0) mg/dL Creatinine (0.6-1.0) mg/dL Est Cr Clr Drug Dosing mL/min Estimated GFR (MDRD) ml/min Glucose (74-106) mg/dL Calcium (8.5-10.1) mg/dL Magnesium (1.8-2.4) mg/dL Total Bilirubin (0.2-1.0) mg/dL AST (15-37) IU/L ALT (14-63) IU/L Alkaline Phosphatase (46-116) U/L Troponin I (0.000-0.056) ng/mL B-Natriuretic Peptide (<100) PG/ML Total Protein (6.4-8.2) g/dL Albumin (3.4-5.0) g/dL Globulin (2.6-4.0) g/dL Albumin/Globulin Ratio (0.9-1.6) Blood Type Antibody Screen Med Orders - Current: Current Medications Benzocaine (Hurricaine One 20%) 1 each MUCMEM Q4HR PRN PRN Reason: Sore Throat Last Admin: 06/24/19 18:47 Dose: 1 each Lactated Ringer's (Ringers, Lactated) 1,000 mls @ 125 mls/hr IV ASDIRECTED [facility] Last Admin: 06/26/19 01:12 Dose: 125 mls/hr Piperacillin Sod/Tazobactam (Sod 3.375 gm/ Sodium Chloride) 50 mls @ 100 mls/ hr IV Q8H [facility] Last Admin: 06/26/19 06:20 Dose: 100 mls/hr Pantoprazole Sodium 40 mg/ (Sodium Chloride) 10 mls @ 300 mls/hr IV ACBREAKFAST [facility] Last Admin: 06/26/19 07:15 Dose: 300 mls/hr Ketorolac Tromethamine (Toradol) 30 mg IVPUSH Q8H PRN PRN Reason: Pain Stop: 06/28/19 23:01 Last Admin: 06/26/19 09:10 Dose: 30 mg Morphine Sulfate (Morphine) 2 mg IVPUSH Q8H PRN PRN Reason: Pain Morphine Sulfate (Morphine Mobile Disc Jockey 30 Mg In 30 Ml) 0 mg IV ASDIRECTED PRN; Protocol PRN Reason: Pain (severe 7-10) Ondansetron HCl (Zofran) 4 mg IVPUSH Q8H PRN PRN Reason: Nausea/Vomiting Discontinued Medications Albuterol (Proventil Neb Soln) 2.5 mg NEB ONETIME PRN PRN Reason: Wheezing Atropine Sulfate (Atropine 0.1 Mg/Ml) 0.5 mg IVPUSH ASDIRECTED PRN PRN Reason: Hypo-perfusion Atropine Sulfate (Atropine 0.1 Mg/Ml) 1 mg IVPUSH ASDIRECTED PRN PRN Reason: Hypo-Perfusion Benzocaine (Hurricaine One 20%) 2 each MUCMEM ONETIME ONE Stop: 06/23/19 22:43 Last Admin: 06/23/19 23:15 Dose: 2 each Bisacodyl (Dulcolax) 10 mg RECTAL ONETIME ONE Stop: 06/24/19 17:42 Last Admin: 06/24/19 17:53 Dose: 10 mg Bisacodyl (Dulcolax) 10 mg RECTAL ONETIME ONE Stop: 06/25/19 08:43 Last Admin: 06/25/19 10:14 Dose: Not Given Bupivacaine HCl (Marcaine 0.5%) Confirm Administered Dose 120 ml .ROUTE .STK- MED ONE Stop: 06/25/19 10:53 Cefazolin Sodium (Ancef) Confirm Administered Dose 1 gm .ROUTE .STK-MED ONE Stop: 06/25/19 10:53 Dextrose/Water (Dextrose 50% In Water) 50 ml IVPUSH ASDIRECTED PRN PRN Reason: Hypoglycemia Ephedrine Sulfate (Ephedrine Sulfate) Confirm Administered Dose 50 mg .ROUTE .STK-MED ONE Stop: 06/25/19 11:49 Epinephrine HCl (Epinephrine 1:10,000) 1 mg IVPUSH ASDIRECTED PRN PRN Reason: ACLS Guidelines Fentanyl (Sublimaze) Confirm Administered Dose 250 mcg .ROUTE .STK-MED ONE Stop: 06/25/19 10:35 Fentanyl (Sublimaze) 50 mcg IVPUSH Q5M PRN PRN Reason: Pain Glycopyrrolate (Robinul) Confirm Administered Dose 0.2 mg .ROUTE .STK-MED ONE Stop: 06/25/19 11:52 Hydromorphone HCl (Dilaudid) Confirm Administered Dose 2 mg .ROUTE .STK-MED ONE Stop: 06/25/19 12:45 Sodium Chloride (Normal Saline) 1,000 mls @ 999 mls/hr IV STAT ONE Stop: 06/23/19 20:43 Last Admin: 06/23/19 19:54 Dose: 999 mls/hr Bupivacaine HCl/Epinephrine Bitart (Sensorc Mpf 0.25%-Epi 1:[id number]) Confirm Administered Dose 30 mls @ as directed .ROUTE .STK-MED ONE Stop: 06/25/19 10:53 Lactated Ringer's (Ringers, Lactated) 1,000 mls @ 125 mls/hr IV ASDIRECTED [facility] Lactated Ringer's (Ringers, Lactated) 1,000 mls @ 999 mls/hr IV BOLUS ONE Stop: 06/25/19 20:53 Last Admin: 06/25/19 20:27 Dose: 999 mls/hr Sodium Chloride (Normal Saline) 500 mls @ 500 mls/hr IV .BOLUS CK Last Admin: 06/26/19 02:45 Dose: 500 mls/hr Sodium Chloride (Normal Saline) 500 mls @ 500 mls/hr IV .BOLUS CK Last Admin: 06/26/19 04:19 Dose: 500 mls/hr Iopamidol (Isovue Multipack-370 (76%)) 100 ml IVPUSH ONETIME ONE Stop: 06/23/19 19:57 Last Admin: 06/23/19 20:22 Dose: 100 ml Ketorolac Tromethamine (Toradol) 30 mg IVPUSH ONETIME ONE Stop: 06/23/19 19:36 Last Admin: 06/23/19 19:54 Dose: 30 mg Lidocaine (Xylocaine-Mpf 2%) Confirm Administered Dose 5 ml .ROUTE .STK-MED ONE Stop: 06/25/19 10:35 Metoprolol Tartrate (Lopressor) Confirm Administered Dose 5 mg .ROUTE .STK-MED ONE Stop: 06/25/19 12:18 Midazolam HCl (Versed 1 Mg/Ml) Confirm Administered Dose 2 mg .ROUTE .STK-MED ONE Stop: 06/25/19 10:35 Naloxone HCl (Narcan) 0.1 mg IVPUSH ASDIRECTED PRN PRN Reason: Respiratory Depression Ondansetron HCl (Zofran) 4 mg IVPUSH Q8H PRN PRN Reason: Nausea/Vomiting Ondansetron HCl (Zofran) Confirm Administered Dose 4 mg .ROUTE .STK-MED ONE Stop: 06/25/19 10:35 Phenylephrine HCl (Phenylephrine In Ns 100 Mcg/Ml) Confirm Administered Dose 1 mg .ROUTE .STK-MED ONE Stop: 06/25/19 11:50 Propofol (Diprivan 20 Ml) Confirm Administered Dose 200 mg .ROUTE .STK-MED ONE Stop: 06/25/19 10:35 Rocuronium [place] (Zemuron) Confirm Administered Dose 100 mg .ROUTE .STK-MED ONE Stop: 06/25/19 10:35 Sodium Chloride (Saline Flush) 10 ml FLUSH ASDIRECTED PRN PRN Reason: Keep Vein Open Last Admin: 06/23/19 23:15 Dose: 10 ml Sodium Chloride (Saline Flush) 2.5 ml FLUSH ASDIRECTED PRN PRN Reason: Keep Vein Open Last Admin: 06/23/19 23:16 Dose: 2.5 ml Succinylcholine Chloride (Succinylcholine Chloride) Confirm Administered Dose 200 mg .ROUTE .STK-MED ONE Stop: 06/25/19 10:35 - Exam General: Alert, Oriented Neck: Supple Lungs: Normal Respiratory Effort GI/Abdominal Exam: Other (mildly distended; no bowel sound) Sepsis Event Note - Evaluation Sepsis Screening Result: No Definite Risk - Focused Exam Vital Signs: Vital Signs Temp Pulse Resp BP BP Pulse Ox 06/26/19 09:00 79 14 107/55 L 98 06/26/19 08:00 97.9 F 73 14 93/52 L 97 06/26/19 07:00 13 105/60 106/54 L 97 06/26/19 06:00 98.2 F 12 100/50 L 102/49 L 97 06/26/19 05:00 13 100/55 L 99/51 L 97 06/26/19 04:30 98.4 F 12 100/60 97 06/26/19 03:24 12 85/38 L 97 06/26/19 03:00 11 L 85/39 L 98 06/26/19 02:24 12 83/40 L 97 06/26/19 02:00 97.7 F 12 92/44 L 97 06/26/19 01:00 98.2 F 12 103/50 L 97 06/25/19 23:53 98.4 F 13 102/46 L 97 06/25/19 23:00 97.7 F 12 100/51 L 97 Date Exam was Performed: 06/26/19 Time Exam was Performed: 10:53 - Problem List Review Problem List Initiated/Reviewed/Updated: Yes - My Orders Last 24 Hours: Active Orders 24 hr Category Date Time Status Admission Status [Patient Status] [ADT] Routine ADT 06/25/19 14:11 Active Blood Glucose Check, Bedside [RC] PRN Care 06/25/19 13:10 Active Cardiac Monitoring [RC] Q8H Care 06/25/19 14:15 Active Communication Order [RC] ROUTINE Care 06/25/19 14:18 Active Communication Order [RC] ROUTINE Care 06/26/19 04:12 Active Communication Order [RC] STAT Care 06/25/19 14:14 Active Communication Order [RC] STAT Care 06/25/19 14:15 Active EKG 12 Lead [EKG Documentation Completion] [RC] STAT Care 06/25/19 14:55 Inactive EKG Documentation Completion [RC] STAT Care 06/25/19 13:44 Active Notify Provider Vital Signs [RC] ASDIRECTED Care 06/25/19 13:10 Active Notify Provider [RC] PRN Care 06/25/19 14:14 Active Notify Provider [RC] PRN Care 06/25/19 14:15 Active Oxygen Therapy [RC] PRN Care 06/25/19 13:10 Active RT Aerosol Therapy [RC] ASDIRECTED Care 06/25/19 13:10 Active RT Aerosol Therapy [RC] ASDIRECTED Care 06/25/19 13:10 Inactive Verify Patient Consent Obtain [RC] ASDIRECTED Care 06/25/19 10:25 Active Vital Signs [RC] Q1H Care 06/25/19 13:10 Active Morphine PF [Morphine CERTIFIED CODING SPECIALIST 30 MG in 30 ML] Med 06/25/19 14:15 Active See Protocol IV ASDIRECTED PRN Ondansetron [Zofran] Med 06/25/19 14:19 Active 4 mg IVPUSH Q8H PRN Medication Discontinuation Instructions [OM.PC] Stat Oth 06/25/19 14:14 Ordered Medication Discontinuation Instructions [OM.PC] Stat Oth 06/25/19 14:15 Ordered Medication Orders Benzocaine (Hurricaine One 20%) 1 each MUCMEM Q4HR PRN PRN Reason: Sore Throat Last Admin: 06/24/19 18:47 Dose: 1 each Admin: 06/24/19 14:46 Dose: 1 each Lactated Ringer's (Ringers, Lactated) 1,000 mls @ 125 mls/hr IV ASDIRECTED [facility] Last Admin: 06/26/19 01:12 Dose: 125 mls/hr Infusion: 06/25/19 23:18 Dose: 125 mls/hr Admin: 06/25/19 15:18 Dose: 125 mls/hr Infusion: 06/25/19 02:48 Dose: 125 mls/hr Admin: 06/24/19 18:48 Dose: 125 mls/hr Infusion: 06/24/19 18:13 Dose: 125 mls/hr Admin: 06/24/19 10:13 Dose: 125 mls/hr Infusion: 06/24/19 09:04 Dose: 125 mls/hr Admin: 06/24/19 01:04 Dose: 125 mls/hr Piperacillin Sod/Tazobactam (Sod 3.375 gm/ Sodium Chloride) 50 mls @ 100 mls/ hr IV Q8H [facility] Last Admin: 06/26/19 06:20 Dose: 100 mls/hr Infusion: 06/25/19 23:16 Dose: 100 mls/hr Admin: 06/25/19 22:46 Dose: 100 mls/hr Infusion: 06/25/19 15:57 Dose: 100 mls/hr Admin: 06/25/19 15:27 Dose: 100 mls/hr Infusion: 06/25/19 06:53 Dose: 100 mls/hr Admin: 06/25/19 06:23 Dose: 100 mls/hr Infusion: 06/24/19 22:57 Dose: 100 mls/hr Admin: 06/24/19 22:27 Dose: 100 mls/hr Infusion: 06/24/19 15:13 Dose: 100 mls/hr Admin: 06/24/19 14:43 Dose: 100 mls/hr Infusion: 06/24/19 07:15 Dose: 100 mls/hr Admin: 06/24/19 06:45 Dose: 100 mls/hr Infusion: 06/24/19 00:40 Dose: 100 mls/hr Admin: 06/24/19 00:10 Dose: 100 mls/hr Pantoprazole Sodium 40 mg/ (Sodium Chloride) 10 mls @ 300 mls/hr IV ACBREAKFAST [facility] Last Admin: 06/26/19 07:15 Dose: 300 mls/hr Infusion: 06/25/19 06:32 Dose: 300 mls/hr Admin: 06/25/19 06:30 Dose: 300 mls/hr Infusion: 06/24/19 06:44 Dose: 300 mls/hr Admin: 06/24/19 06:42 Dose: 300 mls/hr Ketorolac Tromethamine (Toradol) 30 mg IVPUSH Q8H PRN PRN Reason: Pain Stop: 06/28/19 23:01 Last Admin: 06/26/19 09:10 Dose: 30 mg Admin: 06/25/19 05:04 Dose: 30 mg Morphine Sulfate (Morphine) 2 mg IVPUSH Q8H PRN PRN Reason: Pain Morphine Sulfate (Morphine Mobile Disc Jockey 30 Mg In 30 Ml) 0 mg IV ASDIRECTED PRN; Protocol PRN Reason: Pain (severe 7-10) Ondansetron HCl (Zofran) 4 mg IVPUSH Q8H PRN PRN Reason: Nausea/Vomiting - Assessment Assessment (Free Text/Narrative):: pod#1 ex lap for SBO; having pain issue, as CERTIFIED CODING SPECIALIST was not set up; given toradol, immediately after surgery, not very effective; icu stayed over night, decreased uop, given bolus 1.5 L, making 500 cc in 12 hrs, 40+/hr; not nu; hd got more stable. 11.2 to 10.6 h/h; stay in ICU, will transfer out in the morning; because of urinary retention; will keep Alvarado a day, dc in the morning - Plan Plan (Free Text/Narrative):: pod#1 ex lap for SBO; having pain issue, as CERTIFIED CODING SPECIALIST was not set up; given toradol, immediately after surgery, not very effective; icu stayed over night, decreased uop, given bolus 1.5 L, making 500 cc in 12 hrs, 40+/hr; not nu; hd got more stable. 11.2 to 10.6 h/h; stay in ICU, will transfer out in the morning; because of urinary retention; will keep Alvarado a day, dc in the morning
[2019-06-27] MEDS ORDERED: Sodium Chloride 0.9% 1,000 ML IV SCH (02:45)
--- NOTE | 2019-06-27 03:26 | PN ---
[facility] Physician - Brief Progress [id number]/26/2019 03:23[facility] david MaribelKSENIA - LEATHA (BENEDICTO) - PRISCILLA GILMOREDate of Service 06/27/2019 03:23HPI/Events of Note Overnight events. Called for oliguria and hypotension. Chart reviewed briefly - patient s/p e x lap for SBO, and NAOMY (improving). Ordered 1L of NS bolus. Will re-evaluate if not improved.Interven tions Intermediate-Hypotension - evaluation and management, Oliguria - evaluation and managementElect ronically Signed by: ALAN RUDD) on 06/27/2019 03:25
[2019-06-27] MEDS: Lactated Ringers 1,000 ML IV SCH ×2 (04:13→13:48)
[2019-06-27] MEDS: Pantoprazole 40 MG in Sodium Chloride 0.9% 10 ML IV SCH (06:43)
[2019-06-27] MEDS: Piperacillin/Tazobactam 3.375 GM in Sodium Chloride 0.9% 50 ML IV SCH ×3 (06:46→22:44)
--- NOTE | 2019-06-27 13:39 | PCM.SURGPN ---
- General Info Date of Service: 06/27/19 Functional Status: Reports: Pain Controlled (on public health advisor; uop 28+/hr X 24 hr; not nu; pain in good control, no flatus) - Review of Systems General: Reports: No Symptoms - Patient Data Vitals - Most Recent: Last Vital Signs Temp 97.1 F 06/27/19 08:00 Pulse 79 06/27/19 10:00 Resp 16 06/27/19 10:00 BP 100/55 L 06/27/19 10:00 Pulse Ox 96 06/27/19 10:00 Weight - Most Recent: 132 lb 4.438 oz I&O - Last 24 Hours: Intake & Output 06/26/19 06/27/19 06/27/19 22:59 06:59 14:59 Intake Total 1908 Output Total 315 375 150 Balance -315 1533 -150 Med Orders - Current: Current Medications Benzocaine (Hurricaine One 20%) 1 each MUCMEM Q4HR PRN PRN Reason: Sore Throat Last Admin: 06/24/19 18:47 Dose: 1 each Lactated Ringer's (Ringers, Lactated) 1,000 mls @ 100 mls/hr IV ASDIRECTED [facility] Last Admin: 06/27/19 04:13 Dose: 125 mls/hr Piperacillin Sod/Tazobactam (Sod 3.375 gm/ Sodium Chloride) 50 mls @ 100 mls/ hr IV Q8H [facility] Last Admin: 06/27/19 06:46 Dose: 100 mls/hr Pantoprazole Sodium 40 mg/ (Sodium Chloride) 10 mls @ 300 mls/hr IV ACBREAKFAST [facility] Last Admin: 06/27/19 06:43 Dose: 300 mls/hr Sodium Chloride (Normal Saline) 1,000 mls @ 999 mls/hr IV ASDIRECTED [facility] Last Admin: 06/27/19 03:19 Dose: 999 mls/hr Morphine Sulfate (Morphine Hospice Liaison 30 Mg In 30 Ml) 0 mg IV ASDIRECTED PRN; Protocol PRN Reason: Pain (severe 7-10) Last Admin: 06/26/19 12:31 Dose: 30 mg Ondansetron HCl (Zofran) 4 mg IVPUSH Q8H PRN PRN Reason: Nausea/Vomiting Discontinued Medications Albuterol (Proventil Neb Soln) 2.5 mg NEB ONETIME PRN PRN Reason: Wheezing Atropine Sulfate (Atropine 0.1 Mg/Ml) 0.5 mg IVPUSH ASDIRECTED PRN PRN Reason: Hypo-perfusion Atropine Sulfate (Atropine 0.1 Mg/Ml) 1 mg IVPUSH ASDIRECTED PRN PRN Reason: Hypo-Perfusion Benzocaine (Hurricaine One 20%) 2 each MUCMEM ONETIME ONE Stop: 06/23/19 22:43 Last Admin: 06/23/19 23:15 Dose: 2 each Bisacodyl (Dulcolax) 10 mg RECTAL ONETIME ONE Stop: 06/24/19 17:42 Last Admin: 06/24/19 17:53 Dose: 10 mg Bisacodyl (Dulcolax) 10 mg RECTAL ONETIME ONE Stop: 06/25/19 08:43 Last Admin: 06/25/19 10:14 Dose: Not Given Bupivacaine HCl (Marcaine 0.5%) Confirm Administered Dose 120 ml .ROUTE .STK- MED ONE Stop: 06/25/19 10:53 Cefazolin Sodium (Ancef) Confirm Administered Dose 1 gm .ROUTE .STK-MED ONE Stop: 06/25/19 10:53 Dextrose/Water (Dextrose 50% In Water) 50 ml IVPUSH ASDIRECTED PRN PRN Reason: Hypoglycemia Ephedrine Sulfate (Ephedrine Sulfate) Confirm Administered Dose 50 mg .ROUTE .STK-MED ONE Stop: 06/25/19 11:49 Epinephrine HCl (Epinephrine 1:10,000) 1 mg IVPUSH ASDIRECTED PRN PRN Reason: ACLS Guidelines Fentanyl (Sublimaze) Confirm Administered Dose 250 mcg .ROUTE .STK-MED ONE Stop: 06/25/19 10:35 Fentanyl (Sublimaze) 50 mcg IVPUSH Q5M PRN PRN Reason: Pain Glycopyrrolate (Robinul) Confirm Administered Dose 0.2 mg .ROUTE .STK-MED ONE Stop: 06/25/19 11:52 Hydromorphone HCl (Dilaudid) Confirm Administered Dose 2 mg .ROUTE .STK-MED ONE Stop: 06/25/19 12:45 Sodium Chloride (Normal Saline) 1,000 mls @ 999 mls/hr IV STAT ONE Stop: 06/23/19 20:43 Last Admin: 06/23/19 19:54 Dose: 999 mls/hr Bupivacaine HCl/Epinephrine Bitart (Sensorc Mpf 0.25%-Epi [id number]) Confirm Administered Dose 30 mls @ as directed .ROUTE .STK-MED ONE Stop: 06/25/19 10:53 Lactated Ringer's (Ringers, Lactated) 1,000 mls @ 125 mls/hr IV ASDIRECTED CK Lactated Ringer's (Ringers, Lactated) 1,000 mls @ 999 mls/hr IV BOLUS ONE Stop: 06/25/19 20:53 Last Admin: 06/25/19 20:27 Dose: 999 mls/hr Sodium Chloride (Normal Saline) 500 mls @ 500 mls/hr IV .BOLUS CK Last Admin: 06/26/19 02:45 Dose: 500 mls/hr Sodium Chloride (Normal Saline) 500 mls @ 500 mls/hr IV .BOLUS CK Last Admin: 06/26/19 04:19 Dose: 500 mls/hr Iopamidol (Isovue Multipack-370 (76%)) 100 ml IVPUSH ONETIME ONE Stop: 06/23/19 19:57 Last Admin: 06/23/19 20:22 Dose: 100 ml Ketorolac Tromethamine (Toradol) 30 mg IVPUSH ONETIME ONE Stop: 06/23/19 19:36 Last Admin: 06/23/19 19:54 Dose: 30 mg Ketorolac Tromethamine (Toradol) 30 mg IVPUSH Q8H PRN PRN Reason: Pain Stop: 06/28/19 23:01 Last Admin: 06/26/19 09:10 Dose: 30 mg Lidocaine (Xylocaine-Mpf 2%) Confirm Administered Dose 5 ml .ROUTE .STK-MED ONE Stop: 06/25/19 10:35 Metoprolol Tartrate (Lopressor) Confirm Administered Dose 5 mg .ROUTE .STK-MED ONE Stop: 06/25/19 12:18 Midazolam HCl (Versed 1 Mg/Ml) Confirm Administered Dose 2 mg .ROUTE .STK-MED ONE Stop: 06/25/19 10:35 Morphine Sulfate (Morphine) 2 mg IVPUSH Q8H PRN PRN Reason: Pain Naloxone HCl (Narcan) 0.1 mg IVPUSH ASDIRECTED PRN PRN Reason: Respiratory Depression Ondansetron HCl (Zofran) 4 mg IVPUSH Q8H PRN PRN Reason: Nausea/Vomiting Ondansetron HCl (Zofran) Confirm Administered Dose 4 mg .ROUTE .STK-MED ONE Stop: 06/25/19 10:35 Phenylephrine HCl (Phenylephrine In Ns 100 Mcg/Ml) Confirm Administered Dose 1 mg .ROUTE .STK-MED ONE Stop: 06/25/19 11:50 Propofol (Diprivan 20 Ml) Confirm Administered Dose 200 mg .ROUTE .STK-MED ONE Stop: 06/25/19 10:35 Rocuronium [place] (Zemuron) Confirm Administered Dose 100 mg .ROUTE .STK-MED ONE Stop: 06/25/19 10:35 Sodium Chloride (Saline Flush) 10 ml FLUSH ASDIRECTED PRN PRN Reason: Keep Vein Open Last Admin: 06/23/19 23:15 Dose: 10 ml Sodium Chloride (Saline Flush) 2.5 ml FLUSH ASDIRECTED PRN PRN Reason: Keep Vein Open Last Admin: 06/23/19 23:16 Dose: 2.5 ml Succinylcholine Chloride (Succinylcholine Chloride) Confirm Administered Dose 200 mg .ROUTE .STK-MED ONE Stop: 06/25/19 10:35 - Exam Lungs: Clear to Auscultation GI/Abdominal Exam: No Distention (wound cdi, amb in [place], no flatus yet) Sepsis Event Note - Evaluation Sepsis Screening Result: No Definite Risk - Focused Exam Vital Signs: Vital Signs Temp Pulse Resp BP Pulse Ox 06/27/19 10:00 79 16 100/55 L 96 06/27/19 09:00 83 15 95/53 L 94 L 06/27/19 08:00 97.1 F 80 13 99/51 L 95 06/27/19 07:00 76 12 99/43 L 95 06/27/19 06:00 75 12 97/47 L 94 L 06/27/19 05:00 76 12 97/49 L 95 06/27/19 04:00 77 13 98/49 L 98 06/27/19 03:00 90 12 94/43 L 97 06/27/19 02:05 81 14 90/39 L 93 L 06/27/19 01:47 100/46 L Date Exam was Performed: 06/27/19 Time Exam was Performed: 13:36 - Problem List Review Problem List Initiated/Reviewed/Updated: Yes - My Orders Last 24 Hours: Active Orders 24 hr Category Date Time Status Transfer Patient (Change bed) [ADT] Routine ADT 06/27/19 11:40 Ordered Communication Order [RC] ROUTINE Care 06/27/19 11:22 Active NG [Gastrointestinal Tube Mgmt] [RC] ASDIRECTED Care 06/27/19 11:40 Active Sodium Chloride 0.9% [Normal Saline] 1,000 ml Med 06/27/19 02:45 Active IV ASDIRECTED Medication Orders Benzocaine (Hurricaine One 20%) 1 each MUCMEM Q4HR PRN PRN Reason: Sore Throat Last Admin: 06/24/19 18:47 Dose: 1 each Admin: 06/24/19 14:46 Dose: 1 each Lactated Ringer's (Ringers, Lactated) 1,000 mls @ 100 mls/hr IV ASDIRECTED [facility] Last Admin: 06/27/19 04:13 Dose: 125 mls/hr Infusion: 06/27/19 03:31 Dose: 125 mls/hr Admin: 06/26/19 19:31 Dose: 125 mls/hr Infusion: 06/26/19 19:10 Dose: 125 mls/hr Admin: 06/26/19 11:10 Dose: 125 mls/hr Infusion: 06/26/19 09:12 Dose: 125 mls/hr Admin: 06/26/19 01:12 Dose: 125 mls/hr Infusion: 06/25/19 23:18 Dose: 125 mls/hr Admin: 06/25/19 15:18 Dose: 125 mls/hr Infusion: 06/25/19 02:48 Dose: 125 mls/hr Admin: 06/24/19 18:48 Dose: 125 mls/hr Infusion: 06/24/19 18:13 Dose: 125 mls/hr Admin: 06/24/19 10:13 Dose: 125 mls/hr Infusion: 06/24/19 09:04 Dose: 125 mls/hr Admin: 06/24/19 01:04 Dose: 125 mls/hr Piperacillin Sod/Tazobactam (Sod 3.375 gm/ Sodium Chloride) 50 mls @ 100 mls/ hr IV Q8H [facility] Last Admin: 06/27/19 06:46 Dose: 100 mls/hr Infusion: 06/26/19 22:52 Dose: 100 mls/hr Admin: 06/26/19 22:22 Dose: 100 mls/hr Infusion: 06/26/19 16:51 Dose: 100 mls/hr Admin: 06/26/19 16:21 Dose: 100 mls/hr Infusion: 06/26/19 06:50 Dose: 100 mls/hr Admin: 06/26/19 06:20 Dose: 100 mls/hr Infusion: 06/25/19 23:16 Dose: 100 mls/hr Admin: 06/25/19 22:46 Dose: 100 mls/hr Infusion: 06/25/19 15:57 Dose: 100 mls/hr Admin: 06/25/19 15:27 Dose: 100 mls/hr Infusion: 06/25/19 06:53 Dose: 100 mls/hr Admin: 06/25/19 06:23 Dose: 100 mls/hr Infusion: 06/24/19 22:57 Dose: 100 mls/hr Admin: 06/24/19 22:27 Dose: 100 mls/hr Infusion: 06/24/19 15:13 Dose: 100 mls/hr Admin: 06/24/19 14:43 Dose: 100 mls/hr Infusion: 06/24/19 07:15 Dose: 100 mls/hr Admin: 06/24/19 06:45 Dose: 100 mls/hr Infusion: 06/24/19 00:40 Dose: 100 mls/hr Admin: 06/24/19 00:10 Dose: 100 mls/hr Pantoprazole Sodium 40 mg/ (Sodium Chloride) 10 mls @ 300 mls/hr IV ACBREAKFAST [facility] Last Admin: 06/27/19 06:43 Dose: 300 mls/hr Infusion: 06/26/19 07:17 Dose: 300 mls/hr Admin: 06/26/19 07:15 Dose: 300 mls/hr Infusion: 06/25/19 06:32 Dose: 300 mls/hr Admin: 06/25/19 06:30 Dose: 300 mls/hr Infusion: 06/24/19 06:44 Dose: 300 mls/hr Admin: 06/24/19 06:42 Dose: 300 mls/hr Sodium Chloride (Normal Saline) 1,000 mls @ 999 mls/hr IV ASDIRECTED [facility] Last Admin: 06/27/19 03:19 Dose: 999 mls/hr Morphine Sulfate (Morphine Hospice Liaison 30 Mg In 30 Ml) 0 mg IV ASDIRECTED PRN; Protocol PRN Reason: Pain (severe 7-10) Last Admin: 06/26/19 12:31 Dose: 30 mg Ondansetron HCl (Zofran) 4 mg IVPUSH Q8H PRN PRN Reason: Nausea/Vomiting - Assessment Assessment (Free Text/Narrative):: pod#1, doing well, await bowel function to return; txf to floor - Plan Plan (Free Text/Narrative):: pod#1, doing well, await bowel function to return; txf to floor
[2019-06-28] MEDS: Lactated Ringers 1,000 ML IV SCH ×3 (01:38→23:47)
[2019-06-28] MEDS: Pantoprazole 40 MG in Sodium Chloride 0.9% 10 ML IV SCH (06:37)
[2019-06-28] MEDS: Piperacillin/Tazobactam 3.375 GM in Sodium Chloride 0.9% 50 ML IV SCH ×3 (06:39→23:43)
--- NOTE | 2019-06-28 09:31 | PCM48HPAN ---
Post Anesthesia Note - EVALUATION WITHIN 48HRS OF ANESTHETIC Vital Signs in Normal Range: Yes Patient Participated in Evaluation: Yes Respiratory Function Stable: Yes Airway Patent: Yes Cardiovascular Function Stable: Yes Hydration Status Stable: Yes Pain Control Satisfactory: Yes Nausea and Vomiting Control Satisfactory: Yes Mental Status Recovered: Yes Vital Signs: Last Vital Signs Temp 98.3 F 06/28/19 07:51 Pulse 81 06/28/19 07:51 Resp 15 06/28/19 07:51 BP 106/65 06/28/19 07:51 Pulse Ox 94 L 06/28/19 07:51 - COMMENTS/OBSERVATIONS Free Text/Narrative:: Pt. reported adequate pain control and has been working on moving more.
--- NOTE | 2019-06-28 11:10 | PCM.SURGPN ---
- General Info Date of Service: 06/28/19 POD#: 3 Post-Op Diagnosis: ex lap Functional Status: Reports: Pain Controlled - Review of Systems General: Reports: No Symptoms (no flatus; pt has been amb w staff in [place], chewing gums, denied nausea) - Patient Data Vitals - Most Recent: Last Vital Signs Temp 98.3 F 06/28/19 07:51 Pulse 81 06/28/19 07:51 Resp 15 06/28/19 07:51 BP 106/65 06/28/19 07:51 Pulse Ox 94 L 06/28/19 07:51 Weight - Most Recent: 132 lb I&O - Last 24 Hours: Intake & Output 06/27/19 06/28/19 06/28/19 22:59 06:59 14:59 Intake Total 1241 1040 50 Output Total 200 350 Balance 1041 690 50 Med Orders - Current: Current Medications Benzocaine (Hurricaine One 20%) 1 each MUCMEM Q4HR PRN PRN Reason: Sore Throat Last Admin: 06/24/19 18:47 Dose: 1 each Lactated Ringer's (Ringers, Lactated) 1,000 mls @ 100 mls/hr IV ASDIRECTED [facility] Last Admin: 06/28/19 01:38 Dose: 100 mls/hr Piperacillin Sod/Tazobactam (Sod 3.375 gm/ Sodium Chloride) 50 mls @ 100 mls/ hr IV Q8H [facility] Last Admin: 06/28/19 06:39 Dose: 100 mls/hr Pantoprazole Sodium 40 mg/ (Sodium Chloride) 10 mls @ 300 mls/hr IV ACBREAKFAST [facility] Last Admin: 06/28/19 06:37 Dose: 300 mls/hr Morphine Sulfate (Morphine Billet Examiner 30 Mg In 30 Ml) 0 mg IV ASDIRECTED PRN; Protocol PRN Reason: Pain (severe 7-10) Last Admin: 06/26/19 12:31 Dose: 30 mg Ondansetron HCl (Zofran) 4 mg IVPUSH Q8H PRN PRN Reason: Nausea/Vomiting Discontinued Medications Albuterol (Proventil Neb Soln) 2.5 mg NEB ONETIME PRN PRN Reason: Wheezing Atropine Sulfate (Atropine 0.1 Mg/Ml) 0.5 mg IVPUSH ASDIRECTED PRN PRN Reason: Hypo-perfusion Atropine Sulfate (Atropine 0.1 Mg/Ml) 1 mg IVPUSH ASDIRECTED PRN PRN Reason: Hypo-Perfusion Benzocaine (Hurricaine One 20%) 2 each MUCMEM ONETIME ONE Stop: 06/23/19 22:43 Last Admin: 06/23/19 23:15 Dose: 2 each Bisacodyl (Dulcolax) 10 mg RECTAL ONETIME ONE Stop: 06/24/19 17:42 Last Admin: 06/24/19 17:53 Dose: 10 mg Bisacodyl (Dulcolax) 10 mg RECTAL ONETIME ONE Stop: 06/25/19 08:43 Last Admin: 06/25/19 10:14 Dose: Not Given Bupivacaine HCl (Marcaine 0.5%) Confirm Administered Dose 120 ml .ROUTE .STK- MED ONE Stop: 06/25/19 10:53 Cefazolin Sodium (Ancef) Confirm Administered Dose 1 gm .ROUTE .STK-MED ONE Stop: 06/25/19 10:53 Dextrose/Water (Dextrose 50% In Water) 50 ml IVPUSH ASDIRECTED PRN PRN Reason: Hypoglycemia Ephedrine Sulfate (Ephedrine Sulfate) Confirm Administered Dose 50 mg .ROUTE .STK-MED ONE Stop: 06/25/19 11:49 Epinephrine HCl (Epinephrine 1:10,000) 1 mg IVPUSH ASDIRECTED PRN PRN Reason: ACLS Guidelines Fentanyl (Sublimaze) Confirm Administered Dose 250 mcg .ROUTE .STK-MED ONE Stop: 06/25/19 10:35 Fentanyl (Sublimaze) 50 mcg IVPUSH Q5M PRN PRN Reason: Pain Glycopyrrolate (Robinul) Confirm Administered Dose 0.2 mg .ROUTE .STK-MED ONE Stop: 06/25/19 11:52 Hydromorphone HCl (Dilaudid) Confirm Administered Dose 2 mg .ROUTE .STK-MED ONE Stop: 06/25/19 12:45 Sodium Chloride (Normal Saline) 1,000 mls @ 999 mls/hr IV STAT ONE Stop: 06/23/19 20:43 Last Admin: 06/23/19 19:54 Dose: 999 mls/hr Bupivacaine HCl/Epinephrine Bitart (Sensorc Mpf 0.25%-Epi 1:[id number]) Confirm Administered Dose 0 mls @ as directed .ROUTE .STK-MED ONE Stop: 06/25/19 10:53 Lactated Ringer's (Ringers, Lactated) 1,000 mls @ 125 mls/hr IV ASDIRECTED [facility] Lactated Ringer's (Ringers, Lactated) 1,000 mls @ 999 mls/hr IV BOLUS ONE Stop: 06/25/19 20:53 Last Admin: 06/25/19 20:27 Dose: 999 mls/hr Sodium Chloride (Normal Saline) 500 mls @ 500 mls/hr IV .BOLUS CK Last Admin: 06/26/19 02:45 Dose: 500 mls/hr Sodium Chloride (Normal Saline) 500 mls @ 500 mls/hr IV .BOLUS CK Last Admin: 06/26/19 04:19 Dose: 500 mls/hr Sodium Chloride (Normal Saline) 1,000 mls @ 999 mls/hr IV ASDIRECTED [facility] Last Admin: 06/27/19 03:19 Dose: 999 mls/hr Iopamidol (Isovue Multipack-370 (76%)) 100 ml IVPUSH ONETIME ONE Stop: 06/23/19 19:57 Last Admin: 06/23/19 20:22 Dose: 100 ml Ketorolac Tromethamine (Toradol) 30 mg IVPUSH ONETIME ONE Stop: 06/23/19 19:36 Last Admin: 06/23/19 19:54 Dose: 30 mg Ketorolac Tromethamine (Toradol) 30 mg IVPUSH Q8H PRN PRN Reason: Pain Stop: 06/28/19 23:01 Last Admin: 06/26/19 09:10 Dose: 30 mg Lidocaine (Xylocaine-Mpf 2%) Confirm Administered Dose 5 ml .ROUTE .STK-MED ONE Stop: 06/25/19 10:35 Metoprolol Tartrate (Lopressor) Confirm Administered Dose 5 mg .ROUTE .STK-MED ONE Stop: 06/25/19 12:18 Midazolam HCl (Versed 1 Mg/Ml) Confirm Administered Dose 2 mg .ROUTE .STK-MED ONE Stop: 06/25/19 10:35 Morphine Sulfate (Morphine) 2 mg IVPUSH Q8H PRN PRN Reason: Pain Naloxone HCl (Narcan) 0.1 mg IVPUSH ASDIRECTED PRN PRN Reason: Respiratory Depression Ondansetron HCl (Zofran) 4 mg IVPUSH Q8H PRN PRN Reason: Nausea/Vomiting Ondansetron HCl (Zofran) Confirm Administered Dose 4 mg .ROUTE .STK-MED ONE Stop: 06/25/19 10:35 Phenylephrine HCl (Phenylephrine In Ns 100 Mcg/Ml) Confirm Administered Dose 1 mg .ROUTE .STK-MED ONE Stop: 06/25/19 11:50 Propofol (Diprivan 20 Ml) Confirm Administered Dose 200 mg .ROUTE .STK-MED ONE Stop: 06/25/19 10:35 Rocuronium [place] (Zemuron) Confirm Administered Dose 100 mg .ROUTE .STK-MED ONE Stop: 06/25/19 10:35 Sodium Chloride (Saline Flush) 10 ml FLUSH ASDIRECTED PRN PRN Reason: Keep Vein Open Last Admin: 06/23/19 23:15 Dose: 10 ml Sodium Chloride (Saline Flush) 2.5 ml FLUSH ASDIRECTED PRN PRN Reason: Keep Vein Open Last Admin: 06/23/19 23:16 Dose: 2.5 ml Succinylcholine Chloride (Succinylcholine Chloride) Confirm Administered Dose 200 mg .ROUTE .STK-MED ONE Stop: 06/25/19 10:35 - Exam Wound/Incisions: Healing Well (no expressible materials, abd minimally distended ) Sepsis Event Note - Evaluation Sepsis Screening Result: No Definite Risk - Focused Exam Vital Signs: Vital Signs Temp Pulse Resp BP Pulse Ox 06/28/19 07:51 98.3 F 81 15 106/65 94 L 06/28/19 04:00 97.7 F 80 18 101/53 L 92 L 06/28/19 00:00 97.3 F 74 18 103/45 L 94 L Date Exam was Performed: 06/28/19 Time Exam was Performed: 11:06 - Problem List Review Problem List Initiated/Reviewed/Updated: Yes - My Orders Last 24 Hours: Active Orders 24 hr Category Date Time Status Transfer Patient (Change bed) [ADT] Routine ADT 06/27/19 11:40 Ordered NG [Gastrointestinal Tube Mgmt] [RC] Q4H Care 06/27/19 11:40 Active Medication Orders Benzocaine (Hurricaine One 20%) 1 each MUCMEM Q4HR PRN PRN Reason: Sore Throat Last Admin: 06/24/19 18:47 Dose: 1 each Admin: 06/24/19 14:46 Dose: 1 each Lactated Ringer's (Ringers, Lactated) 1,000 mls @ 100 mls/hr IV ASDIRECTED [facility] Last Admin: 06/28/19 01:38 Dose: 100 mls/hr Infusion: 06/27/19 23:48 Dose: 100 mls/hr Admin: 06/27/19 13:48 Dose: 100 mls/hr Infusion: 06/27/19 12:13 Dose: 125 mls/hr Admin: 06/27/19 04:13 Dose: 125 mls/hr Infusion: 06/27/19 03:31 Dose: 125 mls/hr Admin: 06/26/19 19:31 Dose: 125 mls/hr Infusion: 06/26/19 19:10 Dose: 125 mls/hr Admin: 06/26/19 11:10 Dose: 125 mls/hr Infusion: 06/26/19 09:12 Dose: 125 mls/hr Admin: 06/26/19 01:12 Dose: 125 mls/hr Infusion: 06/25/19 23:18 Dose: 125 mls/hr Admin: 06/25/19 15:18 Dose: 125 mls/hr Infusion: 06/25/19 02:48 Dose: 125 mls/hr Admin: 06/24/19 18:48 Dose: 125 mls/hr Infusion: 06/24/19 18:13 Dose: 125 mls/hr Admin: 06/24/19 10:13 Dose: 125 mls/hr Infusion: 06/24/19 09:04 Dose: 125 mls/hr Admin: 06/24/19 01:04 Dose: 125 mls/hr Piperacillin Sod/Tazobactam (Sod 3.375 gm/ Sodium Chloride) 50 mls @ 100 mls/ hr IV Q8H [facility] Last Admin: 06/28/19 06:39 Dose: 100 mls/hr Infusion: 06/27/19 23:14 Dose: 100 mls/hr Admin: 06/27/19 22:44 Dose: 100 mls/hr Infusion: 06/27/19 16:00 Dose: 100 mls/hr Admin: 06/27/19 15:30 Dose: 100 mls/hr Infusion: 06/27/19 07:16 Dose: 100 mls/hr Admin: 06/27/19 06:46 Dose: 100 mls/hr Infusion: 06/26/19 22:52 Dose: 100 mls/hr Admin: 06/26/19 22:22 Dose: 100 mls/hr Infusion: 06/26/19 16:51 Dose: 100 mls/hr Admin: 06/26/19 16:21 Dose: 100 mls/hr Infusion: 06/26/19 06:50 Dose: 100 mls/hr Admin: 06/26/19 06:20 Dose: 100 mls/hr Infusion: 06/25/19 23:16 Dose: 100 mls/hr Admin: 06/25/19 22:46 Dose: 100 mls/hr Infusion: 06/25/19 15:57 Dose: 100 mls/hr Admin: 06/25/19 15:27 Dose: 100 mls/hr Infusion: 06/25/19 06:53 Dose: 100 mls/hr Admin: 06/25/19 06:23 Dose: 100 mls/hr Infusion: 06/24/19 22:57 Dose: 100 mls/hr Admin: 06/24/19 22:27 Dose: 100 mls/hr Infusion: 06/24/19 15:13 Dose: 100 mls/hr Admin: 06/24/19 14:43 Dose: 100 mls/hr Infusion: 06/24/19 07:15 Dose: 100 mls/hr Admin: 06/24/19 06:45 Dose: 100 mls/hr Infusion: 06/24/19 00:40 Dose: 100 mls/hr Admin: 06/24/19 00:10 Dose: 100 mls/hr Pantoprazole Sodium 40 mg/ (Sodium Chloride) 10 mls @ 300 mls/hr IV ACBREAKFAST [facility] Last Admin: 06/28/19 06:37 Dose: 300 mls/hr Infusion: 06/27/19 06:45 Dose: 300 mls/hr Admin: 06/27/19 06:43 Dose: 300 mls/hr Infusion: 06/26/19 07:17 Dose: 300 mls/hr Admin: 06/26/19 07:15 Dose: 300 mls/hr Infusion: 06/25/19 06:32 Dose: 300 mls/hr Admin: 06/25/19 06:30 Dose: 300 mls/hr Infusion: 06/24/19 06:44 Dose: 300 mls/hr Admin: 06/24/19 06:42 Dose: 300 mls/hr Morphine Sulfate (Morphine Billet Examiner 30 Mg In 30 Ml) 0 mg IV ASDIRECTED PRN; Protocol PRN Reason: Pain (severe 7-10) Last Admin: 06/26/19 12:31 Dose: 30 mg Ondansetron HCl (Zofran) 4 mg IVPUSH Q8H PRN PRN Reason: Nausea/Vomiting - Assessment Assessment (Free Text/Narrative):: pod#3 from [facility] in [place], denied nausea, ngt output 300/day; urine output picked up a lot, 600 a day, still running her a bit dry, because of new onset B pleural effusion. cont present management, await bowel function return - Plan Plan (Free Text/Narrative):: pod#3 from [facility] REYES in [place], denied nausea, ngt output 300/day; urine output picked up a lot, 600 a day, still running her a bit dry, because of new onset B pleural effusion. cont present management, await bowel function return
[2019-06-28] MEDS: Heparin Sodium 5,000 Units/ML Vial SUBCUT SCH (22:12)
[2019-06-29] MEDS: Piperacillin/Tazobactam 3.375 GM in Sodium Chloride 0.9% 50 ML IV SCH ×3 (06:18→22:01)
[2019-06-29] MEDS: Pantoprazole 40 MG in Sodium Chloride 0.9% 10 ML IV SCH (06:54)
[2019-06-29 07:03] LABS: BLOOD UREA NITROGEN,BUN 10 mg/dL (7.0-18.0); CARBON DIOXIDE,CO2 21.4 mmol/L (21.0-32.0); CHLORIDE,CL 108 mmol/L (98-107); GLUCOSE RANDOM 71 mg/dL (74-106); POTASSIUM,K 2.9 mmol/L (3.5-5.1); SODIUM,NA 144 mmol/L (136-145)
[2019-06-29] MEDS: Heparin Sodium 5,000 Units/ML Vial SUBCUT SCH ×2 (08:40→20:25)
[2019-06-29] MEDS ORDERED: Bisacodyl 10 MG Supp RECTAL ONE (08:41)
--- NOTE | 2019-06-29 08:47 | PCM.SURGPN ---
- General Info Date of Service: 06/29/19 POD#: 4 Functional Status: Reports: Pain Controlled (passing gas, lots of it; no pain; wound dry) - Patient Data Vitals - Most Recent: Last Vital Signs Temp 97.8 F 06/29/19 07:45 Pulse 75 06/29/19 07:45 Resp 18 06/29/19 07:45 BP 108/52 L 06/29/19 07:45 Pulse Ox 94 L 06/29/19 07:45 Weight - Most Recent: 133 lb I&O - Last 24 Hours: Intake & Output 06/28/19 06/29/19 06/29/19 22:59 06:59 14:59 Intake Total 1054 1326 Output Total 450 1050 Balance 604 276 Lab Results Last 24 Hrs: Laboratory Results - last 24 hr 06/28/19 06/29/19 06/29/19 Range/Units 16:19 06:00 06:00 WBC 7.37 (4.0-11.0) K/uL RBC 3.57 L (4.30-5.90) M/uL Hgb 10.7 L (12.0-16.0) g/dL Hct 33.0 L (36.0-46.0) % MCV 92.4 (80.0-98.0) fL MCH 30.0 (27.0-32.0) pg MCHC 32.4 (31.0-37.0) g/dL RDW Std Deviation 44.3 (28.0-62.0) fl RDW Coeff of Arianne 13 (11.0-15.0) % Plt Count 229 245 (150-400) K/uL MPV 10.40 (7.40-12.00) fL Neut % (Auto) 74.0 (48.0-80.0) % Lymph % (Auto) 14.0 L (16.0-40.0) % Sullivan % (Auto) 6.1 (0.0-15.0) % Eos % (Auto) 5.6 (0.0-7.0) % Baso % (Auto) 0.3 (0.0-1.5) % Neut # (Auto) 5.5 (1.4-5.7) K/uL Lymph # (Auto) 1.0 (0.6-2.4) K/uL Sullivan # (Auto) 0.5 (0.0-0.8) K/uL Eos # (Auto) 0.4 (0.0-0.7) K/uL Baso # (Auto) 0.0 (0.0-0.1) K/uL Nucleated RBC % 0.0 /100WBC Nucleated RBCs # 0 K/uL Sodium 144 (136-145) mmol/L Potassium 2.9 L (3.5-5.1) mmol/L Chloride 108 H (98-107) mmol/L Carbon Dioxide 21.4 (21.0-32.0) mmol/L BUN 10 (7.0-18.0) mg/dL Creatinine 0.6 (0.6-1.0) mg/dL Est Cr Clr Drug Dosing 80.75 mL/min Estimated GFR (MDRD) > 60.0 ml/min Glucose 71 L (74-106) mg/dL Calcium 8.0 L (8.5-10.1) mg/dL Total Bilirubin 0.7 (0.2-1.0) mg/dL AST 40 H (15-37) IU/L ALT 31 (14-63) IU/L Alkaline Phosphatase 53 (46-116) U/L Total Protein 5.3 L (6.4-8.2) g/dL Albumin 2.2 L (3.4-5.0) g/dL Globulin 3.1 (2.6-4.0) g/dL Albumin/Globulin Ratio 0.7 L (0.9-1.6) Med Orders - Current: Current Medications Benzocaine (Hurricaine One 20%) 1 each MUCMEM Q4HR PRN PRN Reason: Sore Throat Last Admin: 06/24/19 18:47 Dose: 1 each Heparin Sodium (Porcine) (Heparin Sodium) 5,000 units SUBCUT BID [facility] Last Admin: 06/29/19 08:40 Dose: 5,000 units Lactated Ringer's (Ringers, Lactated) 1,000 mls @ 100 mls/hr IV ASDIRECTED [facility] Last Admin: 06/28/19 23:47 Dose: 100 mls/hr Piperacillin Sod/Tazobactam (Sod 3.375 gm/ Sodium Chloride) 50 mls @ 100 mls/ hr IV Q8H [facility] Last Admin: 06/29/19 06:18 Dose: 100 mls/hr Pantoprazole Sodium 40 mg/ (Sodium Chloride) 10 mls @ 300 mls/hr IV ACBREAKFAST [facility] Last Admin: 06/29/19 06:54 Dose: 300 mls/hr Morphine Sulfate (Morphine Rescue Instructor 30 Mg In 30 Ml) 0 mg IV ASDIRECTED PRN; Protocol PRN Reason: Pain (severe 7-10) Last Admin: 06/26/19 12:31 Dose: 30 mg Ondansetron HCl (Zofran) 4 mg IVPUSH Q8H PRN PRN Reason: Nausea/Vomiting Discontinued Medications Albuterol (Proventil Neb Soln) 2.5 mg NEB ONETIME PRN PRN Reason: Wheezing Atropine Sulfate (Atropine 0.1 Mg/Ml) 0.5 mg IVPUSH ASDIRECTED PRN PRN Reason: Hypo-perfusion Atropine Sulfate (Atropine 0.1 Mg/Ml) 1 mg IVPUSH ASDIRECTED PRN PRN Reason: Hypo-Perfusion Benzocaine (Hurricaine One 20%) 2 each MUCMEM ONETIME ONE Stop: 06/23/19 22:43 Last Admin: 06/23/19 23:15 Dose: 2 each Bisacodyl (Dulcolax) 10 mg RECTAL ONETIME ONE Stop: 06/24/19 17:42 Last Admin: 06/24/19 17:53 Dose: 10 mg Bisacodyl (Dulcolax) 10 mg RECTAL ONETIME ONE Stop: 06/25/19 08:43 Last Admin: 06/25/19 10:14 Dose: Not Given Bisacodyl (Dulcolax) 10 mg RECTAL ONETIME ONE Stop: 06/29/19 08:42 Bupivacaine HCl (Marcaine 0.5%) Confirm Administered Dose 120 ml .ROUTE .STK- MED ONE Stop: 06/25/19 10:53 Cefazolin Sodium (Ancef) Confirm Administered Dose 1 gm .ROUTE .STK-MED ONE Stop: 06/25/19 10:53 Dextrose/Water (Dextrose 50% In Water) 50 ml IVPUSH ASDIRECTED PRN PRN Reason: Hypoglycemia Ephedrine Sulfate (Ephedrine Sulfate) Confirm Administered Dose 50 mg .ROUTE .STK-MED ONE Stop: 06/25/19 11:49 Epinephrine HCl (Epinephrine 1:10,000) 1 mg IVPUSH ASDIRECTED PRN PRN Reason: ACLS Guidelines Fentanyl (Sublimaze) Confirm Administered Dose 250 mcg .ROUTE .STK-MED ONE Stop: 06/25/19 10:35 Fentanyl (Sublimaze) 50 mcg IVPUSH Q5M PRN PRN Reason: Pain Glycopyrrolate (Robinul) Confirm Administered Dose 0.2 mg .ROUTE .STK-MED ONE Stop: 06/25/19 11:52 Hydromorphone HCl (Dilaudid) Confirm Administered Dose 2 mg .ROUTE .STK-MED ONE Stop: 06/25/19 12:45 Sodium Chloride (Normal Saline) 1,000 mls @ 999 mls/hr IV STAT ONE Stop: 06/23/19 20:43 Last Admin: 06/23/19 19:54 Dose: 999 mls/hr Bupivacaine HCl/Epinephrine Bitart (Sensorc Mpf 0.25%-Epi 1:[id number]) Confirm Administered Dose 0 mls @ as directed .ROUTE .STK-MED ONE Stop: 06/25/19 10:53 Lactated Ringer's (Ringers, Lactated) 1,000 mls @ 125 mls/hr IV ASDIRECTED [facility] Lactated Ringer's (Ringers, Lactated) 1,000 mls @ 999 mls/hr IV BOLUS ONE Stop: 06/25/19 20:53 Last Admin: 06/25/19 20:27 Dose: 999 mls/hr Sodium Chloride (Normal Saline) 500 mls @ 500 mls/hr IV .BOLUS [facility] Last Admin: 06/26/19 02:45 Dose: 500 mls/hr Sodium Chloride (Normal Saline) 500 mls @ 500 mls/hr IV .BOLUS [facility] Last Admin: 06/26/19 04:19 Dose: 500 mls/hr Sodium Chloride (Normal Saline) 1,000 mls @ 999 mls/hr IV ASDIRECTED [facility] Last Admin: 06/27/19 03:19 Dose: 999 mls/hr Iopamidol (Isovue Multipack-370 (76%)) 100 ml IVPUSH ONETIME ONE Stop: 06/23/19 19:57 Last Admin: 06/23/19 20:22 Dose: 100 ml Ketorolac Tromethamine (Toradol) 30 mg IVPUSH ONETIME ONE Stop: 06/23/19 19:36 Last Admin: 06/23/19 19:54 Dose: 30 mg Ketorolac Tromethamine (Toradol) 30 mg IVPUSH Q8H PRN PRN Reason: Pain Stop: 06/28/19 23:01 Last Admin: 06/26/19 09:10 Dose: 30 mg Lidocaine (Xylocaine-Mpf 2%) Confirm Administered Dose 5 ml .ROUTE .STK-MED ONE Stop: 06/25/19 10:35 Metoprolol Tartrate (Lopressor) Confirm Administered Dose 5 mg .ROUTE .STK-MED ONE Stop: 06/25/19 12:18 Midazolam HCl (Versed 1 Mg/Ml) Confirm Administered Dose 2 mg .ROUTE .STK-MED ONE Stop: 06/25/19 10:35 Morphine Sulfate (Morphine) 2 mg IVPUSH Q8H PRN PRN Reason: Pain Naloxone HCl (Narcan) 0.1 mg IVPUSH ASDIRECTED PRN PRN Reason: Respiratory Depression Ondansetron HCl (Zofran) 4 mg IVPUSH Q8H PRN PRN Reason: Nausea/Vomiting Ondansetron HCl (Zofran) Confirm Administered Dose 4 mg .ROUTE .STK-MED ONE Stop: 06/25/19 10:35 Phenylephrine HCl (Phenylephrine In Ns 100 Mcg/Ml) Confirm Administered Dose 1 mg .ROUTE .STK-MED ONE Stop: 06/25/19 11:50 Propofol (Diprivan 20 Ml) Confirm Administered Dose 200 mg .ROUTE .STK-MED ONE Stop: 06/25/19 10:35 Rocuronium [place] (Zemuron) Confirm Administered Dose 100 mg .ROUTE .STK-MED ONE Stop: 06/25/19 10:35 Sodium Chloride (Saline Flush) 10 ml FLUSH ASDIRECTED PRN PRN Reason: Keep Vein Open Last Admin: 06/23/19 23:15 Dose: 10 ml Sodium Chloride (Saline Flush) 2.5 ml FLUSH ASDIRECTED PRN PRN Reason: Keep Vein Open Last Admin: 06/23/19 23:16 Dose: 2.5 ml Succinylcholine Chloride (Succinylcholine Chloride) Confirm Administered Dose 200 mg .ROUTE .STK-MED ONE Stop: 06/25/19 10:35 - Exam GI/Abdominal Exam: Normal Bowel Sounds, No Distention Sepsis Event Note - Evaluation Sepsis Screening Result: No Definite Risk - Focused Exam Vital Signs: Vital Signs Temp Pulse Resp BP Pulse Ox 06/29/19 07:45 97.8 F 75 18 108/52 L 94 L 06/29/19 05:10 97.6 F 77 18 114/53 L 94 L 06/29/19 00:00 97 F 74 18 108/53 L 95 Date Exam was Performed: 06/29/19 Time Exam was Performed: 08:44 - Problem List Review Problem List Initiated/Reviewed/Updated: Yes - My Orders Last 24 Hours: Active Orders 24 hr Category Date Time Status Clear Liquid Diet [DIET] Diet 06/29/19 Breakfast Active Heparin Sodium Med 06/28/19 21:00 Active 5,000 units SUBCUT BID NG [Nasogastric Orogastric Tube Removal] [OM.PC] Oth 06/29/19 08:41 Ordered Routine Medication Orders Benzocaine (Hurricaine One 20%) 1 each MUCMEM Q4HR PRN PRN Reason: Sore Throat Last Admin: 06/24/19 18:47 Dose: 1 each Admin: 06/24/19 14:46 Dose: 1 each Heparin Sodium (Porcine) (Heparin Sodium) 5,000 units SUBCUT BID [facility] Last Admin: 06/29/19 08:40 Dose: 5,000 units Admin: 06/28/19 22:12 Dose: 5,000 units Lactated Ringer's (Ringers, Lactated) 1,000 mls @ 100 mls/hr IV ASDIRECTED [facility] Last Admin: 06/28/19 23:47 Dose: 100 mls/hr Infusion: 06/28/19 22:20 Dose: 100 mls/hr Admin: 06/28/19 12:20 Dose: 100 mls/hr Infusion: 06/28/19 11:38 Dose: 100 mls/hr Admin: 06/28/19 01:38 Dose: 100 mls/hr Infusion: 06/27/19 23:48 Dose: 100 mls/hr Admin: 06/27/19 13:48 Dose: 100 mls/hr Infusion: 06/27/19 12:13 Dose: 125 mls/hr Admin: 06/27/19 04:13 Dose: 125 mls/hr Infusion: 06/27/19 03:31 Dose: 125 mls/hr Admin: 06/26/19 19:31 Dose: 125 mls/hr Infusion: 06/26/19 19:10 Dose: 125 mls/hr Admin: 06/26/19 11:10 Dose: 125 mls/hr Infusion: 06/26/19 09:12 Dose: 125 mls/hr Admin: 06/26/19 01:12 Dose: 125 mls/hr Infusion: 06/25/19 23:18 Dose: 125 mls/hr Admin: 06/25/19 15:18 Dose: 125 mls/hr Infusion: 06/25/19 02:48 Dose: 125 mls/hr Admin: 06/24/19 18:48 Dose: 125 mls/hr Infusion: 06/24/19 18:13 Dose: 125 mls/hr Admin: 06/24/19 10:13 Dose: 125 mls/hr Infusion: 06/24/19 09:04 Dose: 125 mls/hr Admin: 06/24/19 01:04 Dose: 125 mls/hr Piperacillin Sod/Tazobactam (Sod 3.375 gm/ Sodium Chloride) 50 mls @ 100 mls/ hr IV Q8H [facility] Last Admin: 06/29/19 06:18 Dose: 100 mls/hr Infusion: 06/29/19 00:13 Dose: 100 mls/hr Admin: 06/28/19 23:43 Dose: 100 mls/hr Infusion: 06/28/19 16:01 Dose: 100 mls/hr Admin: 06/28/19 15:31 Dose: 100 mls/hr Infusion: 06/28/19 07:09 Dose: 100 mls/hr Admin: 06/28/19 06:39 Dose: 100 mls/hr Infusion: 06/27/19 23:14 Dose: 100 mls/hr Admin: 06/27/19 22:44 Dose: 100 mls/hr Infusion: 06/27/19 16:00 Dose: 100 mls/hr Admin: 06/27/19 15:30 Dose: 100 mls/hr Infusion: 06/27/19 07:16 Dose: 100 mls/hr Admin: 06/27/19 06:46 Dose: 100 mls/hr Infusion: 06/26/19 22:52 Dose: 100 mls/hr Admin: 06/26/19 22:22 Dose: 100 mls/hr Infusion: 06/26/19 16:51 Dose: 100 mls/hr Admin: 06/26/19 16:21 Dose: 100 mls/hr Infusion: 06/26/19 06:50 Dose: 100 mls/hr Admin: 06/26/19 06:20 Dose: 100 mls/hr Infusion: 06/25/19 23:16 Dose: 100 mls/hr Admin: 06/25/19 22:46 Dose: 100 mls/hr Infusion: 06/25/19 15:57 Dose: 100 mls/hr Admin: 06/25/19 15:27 Dose: 100 mls/hr Infusion: 06/25/19 06:53 Dose: 100 mls/hr Admin: 06/25/19 06:23 Dose: 100 mls/hr Infusion: 06/24/19 22:57 Dose: 100 mls/hr Admin: 06/24/19 22:27 Dose: 100 mls/hr Infusion: 06/24/19 15:13 Dose: 100 mls/hr Admin: 06/24/19 14:43 Dose: 100 mls/hr Infusion: 06/24/19 07:15 Dose: 100 mls/hr Admin: 06/24/19 06:45 Dose: 100 mls/hr Infusion: 06/24/19 00:40 Dose: 100 mls/hr Admin: 06/24/19 00:10 Dose: 100 mls/hr Pantoprazole Sodium 40 mg/ (Sodium Chloride) 10 mls @ 300 mls/hr IV ACBREAKFAST [facility] Last Admin: 06/29/19 06:54 Dose: 300 mls/hr Infusion: 06/28/19 06:39 Dose: 300 mls/hr Admin: 06/28/19 06:37 Dose: 300 mls/hr Infusion: 06/27/19 06:45 Dose: 300 mls/hr Admin: 06/27/19 06:43 Dose: 300 mls/hr Infusion: 06/26/19 07:17 Dose: 300 mls/hr Admin: 06/26/19 07:15 Dose: 300 mls/hr Infusion: 06/25/19 06:32 Dose: 300 mls/hr Admin: 06/25/19 06:30 Dose: 300 mls/hr Infusion: 12/23/19 06:44 Dose: 300 mls/hr Admin: 06/24/19 06:42 Dose: 300 mls/hr Morphine Sulfate (Morphine Rescue Instructor 30 Mg In 30 Ml) 0 mg IV ASDIRECTED PRN; Protocol PRN Reason: Pain (severe 7-10) Last Admin: 06/26/19 12:31 Dose: 30 mg Ondansetron HCl (Zofran) 4 mg IVPUSH Q8H PRN PRN Reason: Nausea/Vomiting - Assessment Assessment (Free Text/Narrative):: dc ngt, ivf turned down to 50; encourage po fluid intake; clear liquid diet; dulcolax 10 mg pr, continue ambulating in [place] w staff; plan home in the morning - Plan Plan (Free Text/Narrative):: dc ngt, ivf turned down to 50; encourage po fluid intake; clear liquid diet; dulcolax 10 mg pr, continue ambulating in [place] w staff; plan home in the morning
[2019-06-29] MEDS: Lactated Ringers 1,000 ML IV SCH ×2 (11:16→21:49)
[2019-06-30] MEDS: Pantoprazole 40 MG in Sodium Chloride 0.9% 10 ML IV SCH (06:48)
[2019-06-30] MEDS: Piperacillin/Tazobactam 3.375 GM in Sodium Chloride 0.9% 50 ML IV SCH (06:50)
[2019-06-30] MEDS ORDERED: Furosemide 20 MG Tab PO ONE (09:33)
[2019-06-30] MEDS: Heparin Sodium 5,000 Units/ML Vial SUBCUT SCH ×2 (09:44→20:48)
--- NOTE | 2019-06-30 10:11 | PCM.SURGPN ---
- General Info Date of Service: 06/30/19 POD#: 5 (4X loose BM, pain in control, marianna clear liquid, gained 27 lb since admission) Functional Status: Reports: Pain Controlled - Review of Systems Gastrointestinal: Reports: No Symptoms - Patient Data Vitals - Most Recent: Last Vital Signs Temp 98.4 F 06/30/19 07:22 Pulse 95 06/30/19 09:46 Resp 20 06/30/19 07:22 BP 127/59 L 06/30/19 07:22 Pulse Ox 94 L 06/30/19 07:45 Weight - Most Recent: 138 lb 3.2 oz I&O - Last 24 Hours: Intake & Output 06/29/19 06/30/19 06/30/19 22:59 06:59 14:59 Intake Total 590 1637 60 Output Total 650 950 Balance -60 687 60 Med Orders - Current: Current Medications Benzocaine (Hurricaine One 20%) 1 each MUCMEM Q4HR PRN PRN Reason: Sore Throat Last Admin: 06/24/19 18:47 Dose: 1 each Heparin Sodium (Porcine) (Heparin Sodium) 5,000 units SUBCUT BID [facility] Last Admin: 06/30/19 09:44 Dose: 5,000 units Lactated Ringer's (Ringers, Lactated) 1,000 mls @ 100 mls/hr IV ASDIRECTED [facility] Last Admin: 06/29/19 21:49 Dose: 100 mls/hr Piperacillin Sod/Tazobactam (Sod 3.375 gm/ Sodium Chloride) 50 mls @ 100 mls/ hr IV Q8H [facility] Last Admin: 06/30/19 06:50 Dose: 100 mls/hr Pantoprazole Sodium 40 mg/ (Sodium Chloride) 10 mls @ 300 mls/hr IV ACBREAKFAST [facility] Last Admin: 06/30/19 06:48 Dose: 300 mls/hr Morphine Sulfate (Morphine [employer] Physics Technician 30 Mg In 30 Ml) 0 mg IV ASDIRECTED PRN; Protocol PRN Reason: Pain (severe 7-10) Last Admin: 06/26/19 12:31 Dose: 30 mg Ondansetron HCl (Zofran) 4 mg IVPUSH Q8H PRN PRN Reason: Nausea/Vomiting Discontinued Medications Albuterol (Proventil Neb Soln) 2.5 mg NEB ONETIME PRN PRN Reason: Wheezing Atropine Sulfate (Atropine 0.1 Mg/Ml) 0.5 mg IVPUSH ASDIRECTED PRN PRN Reason: Hypo-perfusion Atropine Sulfate (Atropine 0.1 Mg/Ml) 1 mg IVPUSH ASDIRECTED PRN PRN Reason: Hypo-Perfusion Benzocaine (Hurricaine One 20%) 2 each MUCMEM ONETIME ONE Stop: 06/23/19 22:43 Last Admin: 06/23/19 23:15 Dose: 2 each Bisacodyl (Dulcolax) 10 mg RECTAL ONETIME ONE Stop: 06/24/19 17:42 Last Admin: 06/24/19 17:53 Dose: 10 mg Bisacodyl (Dulcolax) 10 mg RECTAL ONETIME ONE Stop: 06/25/19 08:43 Last Admin: 06/25/19 10:14 Dose: Not Given Bisacodyl (Dulcolax) 10 mg RECTAL ONETIME ONE Stop: 06/29/19 08:42 Last Admin: 06/29/19 09:12 Dose: 10 mg Bupivacaine HCl (Marcaine 0.5%) Confirm Administered Dose 120 ml .ROUTE .STK- MED ONE Stop: 06/25/19 10:53 Cefazolin Sodium (Ancef) Confirm Administered Dose 1 gm .ROUTE .STK-MED ONE Stop: 06/25/19 10:53 Dextrose/Water (Dextrose 50% In Water) 50 ml IVPUSH ASDIRECTED PRN PRN Reason: Hypoglycemia Ephedrine Sulfate (Ephedrine Sulfate) Confirm Administered Dose 50 mg .ROUTE .STK-MED ONE Stop: 06/25/19 11:49 Epinephrine HCl (Epinephrine 1:10,000) 1 mg IVPUSH ASDIRECTED PRN PRN Reason: ACLS Guidelines Fentanyl (Sublimaze) Confirm Administered Dose 250 mcg .ROUTE .STK-MED ONE Stop: 06/25/19 10:35 Fentanyl (Sublimaze) 50 mcg IVPUSH Q5M PRN PRN Reason: Pain Furosemide (Lasix) 20 mg PO ONETIME ONE Stop: 06/30/19 09:34 Glycopyrrolate (Robinul) Confirm Administered Dose 0.2 mg .ROUTE .STK-MED ONE Stop: 06/25/19 11:52 Hydromorphone HCl (Dilaudid) Confirm Administered Dose 2 mg .ROUTE .STK-MED ONE Stop: 06/25/19 12:45 Sodium Chloride (Normal Saline) 1,000 mls @ 999 mls/hr IV STAT ONE Stop: 06/23/19 20:43 Last Admin: 06/23/19 19:54 Dose: 999 mls/hr Bupivacaine HCl/Epinephrine Bitart (Sensorc Mpf 0.25%-Epi 1:[id number]) Confirm Administered Dose 0 mls @ as directed .ROUTE .STK-MED ONE Stop: 06/25/19 10:53 Lactated Ringer's (Ringers, Lactated) 1,000 mls @ 125 mls/hr IV ASDIRECTED [facility] Lactated Ringer's (Ringers, Lactated) 1,000 mls @ 999 mls/hr IV BOLUS ONE Stop: 06/25/19 20:53 Last Admin: 06/25/19 20:27 Dose: 999 mls/hr Sodium Chloride (Normal Saline) 500 mls @ 500 mls/hr IV .BOLUS [facility] Last Admin: 06/26/19 02:45 Dose: 500 mls/hr Sodium Chloride (Normal Saline) 500 mls @ 500 mls/hr IV .BOLUS [facility] Last Admin: 06/26/19 04:19 Dose: 500 mls/hr Sodium Chloride (Normal Saline) 1,000 mls @ 999 mls/hr IV ASDIRECTED [facility] Last Admin: 06/27/19 03:19 Dose: 999 mls/hr Iopamidol (Isovue Multipack-370 (76%)) 100 ml IVPUSH ONETIME ONE Stop: 06/23/19 19:57 Last Admin: 06/23/19 20:22 Dose: 100 ml Ketorolac Tromethamine (Toradol) 30 mg IVPUSH ONETIME ONE Stop: 06/23/19 19:36 Last Admin: 06/23/19 19:54 Dose: 30 mg Ketorolac Tromethamine (Toradol) 30 mg IVPUSH Q8H PRN PRN Reason: Pain Stop: 06/28/19 23:01 Last Admin: 06/26/19 09:10 Dose: 30 mg Lidocaine (Xylocaine-Mpf 2%) Confirm Administered Dose 5 ml .ROUTE .STK-MED ONE Stop: 06/25/19 10:35 Metoprolol Tartrate (Lopressor) Confirm Administered Dose 5 mg .ROUTE .STK-MED ONE Stop: 06/25/19 12:18 Midazolam HCl (Versed 1 Mg/Ml) Confirm Administered Dose 2 mg .ROUTE .STK-MED ONE Stop: 06/25/19 10:35 Morphine Sulfate (Morphine) 2 mg IVPUSH Q8H PRN PRN Reason: Pain Naloxone HCl (Narcan) 0.1 mg IVPUSH ASDIRECTED PRN PRN Reason: Respiratory Depression Ondansetron HCl (Zofran) 4 mg IVPUSH Q8H PRN PRN Reason: Nausea/Vomiting Ondansetron HCl (Zofran) Confirm Administered Dose 4 mg .ROUTE .STK-MED ONE Stop: 06/25/19 10:35 Phenylephrine HCl (Phenylephrine In Ns 100 Mcg/Ml) Confirm Administered Dose 1 mg .ROUTE .STK-MED ONE Stop: 06/25/19 11:50 Propofol (Diprivan 20 Ml) Confirm Administered Dose 200 mg .ROUTE .STK-MED ONE Stop: 06/25/19 10:35 Rocuronium [place] (Zemuron) Confirm Administered Dose 100 mg .ROUTE .STK-MED ONE Stop: 06/25/19 10:35 Sodium Chloride (Saline Flush) 10 ml FLUSH ASDIRECTED PRN PRN Reason: Keep Vein Open Last Admin: 06/23/19 23:15 Dose: 10 ml Sodium Chloride (Saline Flush) 2.5 ml FLUSH ASDIRECTED PRN PRN Reason: Keep Vein Open Last Admin: 06/23/19 23:16 Dose: 2.5 ml Succinylcholine Chloride (Succinylcholine Chloride) Confirm Administered Dose 200 mg .ROUTE .STK-MED ONE Stop: 06/25/19 10:35 - Exam GI/Abdominal Exam: Normal Bowel Sounds (distended but soft; wound cdi, no expressible materials) Sepsis Event Note - Evaluation Sepsis Screening Result: No Definite Risk - Focused Exam Vital Signs: Vital Signs Temp Pulse Resp BP Pulse Ox 06/30/19 09:46 95 06/30/19 07:45 94 L 06/30/19 07:22 98.4 F 80 20 127/59 L 88 L 06/30/19 04:00 98.5 F 86 17 134/60 92 L 06/30/19 00:00 98 F 80 16 110/56 L 93 L Date Exam was Performed: 06/30/19 Time Exam was Performed: 10:07 - Problem List Review Problem List Initiated/Reviewed/Updated: Yes - My Orders Last 24 Hours: Medication Orders Benzocaine (Hurricaine One 20%) 1 each MUCMEM Q4HR PRN PRN Reason: Sore Throat Last Admin: 06/24/19 18:47 Dose: 1 each Admin: 06/24/19 14:46 Dose: 1 each Heparin Sodium (Porcine) (Heparin Sodium) 5,000 units SUBCUT BID [facility] Last Admin: 06/30/19 09:44 Dose: 5,000 units Admin: 06/29/19 20:25 Dose: 5,000 units Admin: 06/29/19 08:40 Dose: 5,000 units Admin: 06/28/19 22:12 Dose: 5,000 units Lactated Ringer's (Ringers, Lactated) 1,000 mls @ 100 mls/hr IV ASDIRECTED [facility] Last Admin: 06/29/19 21:49 Dose: 100 mls/hr Infusion: 06/29/19 21:16 Dose: 100 mls/hr Admin: 06/29/19 11:16 Dose: 100 mls/hr Infusion: 06/29/19 09:47 Dose: 100 mls/hr Admin: 06/28/19 23:47 Dose: 100 mls/hr Infusion: 06/28/19 22:20 Dose: 100 mls/hr Admin: 06/28/19 12:20 Dose: 100 mls/hr Infusion: 06/28/19 11:38 Dose: 100 mls/hr Admin: 06/28/19 01:38 Dose: 100 mls/hr Infusion: 06/27/19 23:48 Dose: 100 mls/hr Admin: 06/27/19 13:48 Dose: 100 mls/hr Infusion: 06/27/19 12:13 Dose: 125 mls/hr Admin: 06/27/19 04:13 Dose: 125 mls/hr Infusion: 06/27/19 03:31 Dose: 125 mls/hr Admin: 06/26/19 19:31 Dose: 125 mls/hr Infusion: 06/26/19 19:10 Dose: 125 mls/hr Admin: 06/26/19 11:10 Dose: 125 mls/hr Infusion: 06/26/19 09:12 Dose: 125 mls/hr Admin: 06/26/19 01:12 Dose: 125 mls/hr Infusion: 06/25/19 23:18 Dose: 125 mls/hr Admin: 06/25/19 15:18 Dose: 125 mls/hr Infusion: 06/25/19 02:48 Dose: 125 mls/hr Admin: 06/24/19 18:48 Dose: 125 mls/hr Infusion: 06/24/19 18:13 Dose: 125 mls/hr Admin: 06/24/19 10:13 Dose: 125 mls/hr Infusion: 06/24/19 09:04 Dose: 125 mls/hr Admin: 06/24/19 01:04 Dose: 125 mls/hr Piperacillin Sod/Tazobactam (Sod 3.375 gm/ Sodium Chloride) 50 mls @ 100 mls/ hr IV Q8H CK Last Admin: 06/30/19 06:50 Dose: 100 mls/hr Infusion: 06/29/19 22:31 Dose: 100 mls/hr Admin: 06/29/19 22:01 Dose: 100 mls/hr Infusion: 06/29/19 16:24 Dose: 100 mls/hr Admin: 06/29/19 15:54 Dose: 100 mls/hr Infusion: 06/29/19 06:48 Dose: 100 mls/hr Admin: 06/29/19 06:18 Dose: 100 mls/hr Infusion: 06/29/19 00:13 Dose: 100 mls/hr Admin: 06/28/19 23:43 Dose: 100 mls/hr Infusion: 06/28/19 16:01 Dose: 100 mls/hr Admin: 06/28/19 15:31 Dose: 100 mls/hr Infusion: 06/28/19 07:09 Dose: 100 mls/hr Admin: 06/28/19 06:39 Dose: 100 mls/hr Infusion: 06/27/19 23:14 Dose: 100 mls/hr Admin: 06/27/19 22:44 Dose: 100 mls/hr Infusion: 06/27/19 16:00 Dose: 100 mls/hr Admin: 06/27/19 15:30 Dose: 100 mls/hr Infusion: 06/27/19 07:16 Dose: 100 mls/hr Admin: 06/27/19 06:46 Dose: 100 mls/hr Infusion: 06/26/19 22:52 Dose: 100 mls/hr Admin: 06/26/19 22:22 Dose: 100 mls/hr Infusion: 06/26/19 16:51 Dose: 100 mls/hr Admin: 06/26/19 16:21 Dose: 100 mls/hr Infusion: 06/26/19 06:50 Dose: 100 mls/hr Admin: 06/26/19 06:20 Dose: 100 mls/hr Infusion: 06/25/19 23:16 Dose: 100 mls/hr Admin: 06/25/19 22:46 Dose: 100 mls/hr Infusion: 06/25/19 15:57 Dose: 100 mls/hr Admin: 06/25/19 15:27 Dose: 100 mls/hr Infusion: 06/25/19 06:53 Dose: 100 mls/hr Admin: 06/25/19 06:23 Dose: 100 mls/hr Infusion: 06/24/19 22:57 Dose: 100 mls/hr Admin: 06/24/19 22:27 Dose: 100 mls/hr Infusion: 06/24/19 15:13 Dose: 100 mls/hr Admin: 06/24/19 14:43 Dose: 100 mls/hr Infusion: 06/24/19 07:15 Dose: 100 mls/hr Admin: 06/24/19 06:45 Dose: 100 mls/hr Infusion: 06/24/19 00:40 Dose: 100 mls/hr Admin: 06/24/19 00:10 Dose: 100 mls/hr Pantoprazole Sodium 40 mg/ (Sodium Chloride) 10 mls @ 300 mls/hr IV ACBREAKFAST CK Last Admin: 06/30/19 06:48 Dose: 300 mls/hr Infusion: 06/29/19 06:56 Dose: 300 mls/hr Admin: 06/29/19 06:54 Dose: 300 mls/hr Infusion: 06/28/19 06:39 Dose: 300 mls/hr Admin: 06/28/19 06:37 Dose: 300 mls/hr Infusion: 06/27/19 06:45 Dose: 300 mls/hr Admin: 06/27/19 06:43 Dose: 300 mls/hr Infusion: 06/26/19 07:17 Dose: 300 mls/hr Admin: 06/26/19 07:15 Dose: 300 mls/hr Infusion: 06/25/19 06:32 Dose: 300 mls/hr Admin: 06/25/19 06:30 Dose: 300 mls/hr Infusion: 06/24/19 06:44 Dose: 300 mls/hr Admin: 06/24/19 06:42 Dose: 300 mls/hr Morphine Sulfate (Morphine [employer] 30 Mg In 30 Ml) 0 mg IV ASDIRECTED PRN; Protocol PRN Reason: Pain (severe 7-10) Last Admin: 06/26/19 12:31 Dose: 30 mg Ondansetron HCl (Zofran) 4 mg IVPUSH Q8H PRN PRN Reason: Nausea/Vomiting - Assessment Assessment (Free Text/Narrative):: ngt gone, marianna clear; 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
[2019-06-30] MEDS ORDERED: Docusate Sodium 100 MG Cap PO PRN (10:15)
[2019-06-30] MEDS: Acetaminophen/oxyCODONE 325-5 MG Tab PO PRN (21:04)
[2019-07-01] MEDS: Acetaminophen/oxyCODONE 325-5 MG Tab PO PRN ×2 (05:23→16:20)
[2019-07-01] MEDS: Heparin Sodium 5,000 Units/ML Vial SUBCUT SCH ×2 (08:51→20:41)
--- NOTE | 2019-07-01 21:20 | PCM.SURGPN ---
- General Info Date of Service: 07/01/19 POD#: 6 Post-Op Diagnosis: sbo Functional Status: Reports: Pain Controlled - Review of Systems General: Reports: No Symptoms (had BM and passing gas, marianna po reg diet; felt weak and deconditioned) - Patient Data Vitals - Most Recent: Last Vital Signs Temp 99.1 F 07/01/19 15:00 Pulse 77 07/01/19 15:00 Resp 16 07/01/19 15:00 BP 124/67 07/01/19 15:00 Pulse Ox 94 L 07/01/19 15:00 Weight - Most Recent: 138 lb 3.2 oz I&O - Last 24 Hours: Intake & Output 07/01/19 07/01/19 07/01/19 06:59 14:59 22:59 Intake Total 600 360 Output Total 1100 1100 Balance -500 -740 Med Orders - Current: Current Medications Docusate Sodium (Colace) 100 mg PO DAILY PRN PRN Reason: Constipation Heparin Sodium (Porcine) (Heparin Sodium) 5,000 units SUBCUT BID CK Last Admin: 07/01/19 08:51 Dose: 5,000 units Ondansetron HCl (Zofran) 4 mg IVPUSH Q8H PRN PRN Reason: Nausea/Vomiting Last Admin: 06/30/19 13:12 Dose: 4 mg Oxycodone/Acetaminophen (Percocet 325-5 Mg) 1 tab PO Q4H PRN PRN Reason: Pain Last Admin: 07/01/19 16:20 Dose: 1 tab Discontinued Medications Albuterol (Proventil Neb Soln) 2.5 mg NEB ONETIME PRN PRN Reason: Wheezing Atropine Sulfate (Atropine 0.1 Mg/Ml) 0.5 mg IVPUSH ASDIRECTED PRN PRN Reason: Hypo-perfusion Atropine Sulfate (Atropine 0.1 Mg/Ml) 1 mg IVPUSH ASDIRECTED PRN PRN Reason: Hypo-Perfusion Benzocaine (Hurricaine One 20%) 2 each MUCMEM ONETIME ONE Stop: 06/23/19 22:43 Last Admin: 06/23/19 23:15 Dose: 2 each Benzocaine (Hurricaine One 20%) 1 each MUCMEM Q4HR PRN PRN Reason: Sore Throat Last Admin: 06/24/19 18:47 Dose: 1 each Bisacodyl (Dulcolax) 10 mg RECTAL ONETIME ONE Stop: 06/24/19 17:42 Last Admin: 06/24/19 17:53 Dose: 10 mg Bisacodyl (Dulcolax) 10 mg RECTAL ONETIME ONE Stop: 06/25/19 08:43 Last Admin: 06/25/19 10:14 Dose: Not Given Bisacodyl (Dulcolax) 10 mg RECTAL ONETIME ONE Stop: 06/29/19 08:42 Last Admin: 06/29/19 09:12 Dose: 10 mg Bupivacaine HCl (Marcaine 0.5%) Confirm Administered Dose 120 ml .ROUTE .STK- MED ONE Stop: 06/25/19 10:53 Cefazolin Sodium (Ancef) Confirm Administered Dose 1 gm .ROUTE .STK-MED ONE Stop: 06/25/19 10:53 Dextrose/Water (Dextrose 50% In Water) 50 ml IVPUSH ASDIRECTED PRN PRN Reason: Hypoglycemia Ephedrine Sulfate (Ephedrine Sulfate) Confirm Administered Dose 50 mg .ROUTE .STK-MED ONE Stop: 06/25/19 11:49 Epinephrine HCl (Epinephrine 1:10,000) 1 mg IVPUSH ASDIRECTED PRN PRN Reason: ACLS Guidelines Fentanyl (Sublimaze) Confirm Administered Dose 250 mcg .ROUTE .STK-MED ONE Stop: 06/25/19 10:35 Fentanyl (Sublimaze) 50 mcg IVPUSH Q5M PRN PRN Reason: Pain Furosemide (Lasix) 20 mg PO ONETIME ONE Stop: 06/30/19 09:34 Last Admin: 06/30/19 10:19 Dose: 20 mg Glycopyrrolate (Robinul) Confirm Administered Dose 0.2 mg .ROUTE .STK-MED ONE Stop: 06/25/19 11:52 Hydromorphone HCl (Dilaudid) Confirm Administered Dose 2 mg .ROUTE .STK-MED ONE Stop: 06/25/19 12:45 Sodium Chloride (Normal Saline) 1,000 mls @ 999 mls/hr IV STAT ONE Stop: 06/23/19 20:43 Last Admin: 06/23/19 19:54 Dose: 999 mls/hr Lactated Ringer's (Ringers, Lactated) 1,000 mls @ 100 mls/hr IV ASDIRECTED CK Last Admin: 06/29/19 21:49 Dose: 100 mls/hr Piperacillin Sod/Tazobactam (Sod 3.375 gm/ Sodium Chloride) 50 mls @ 100 mls/ hr IV Q8H CK Last Admin: 06/30/19 06:50 Dose: 100 mls/hr Pantoprazole Sodium 40 mg/ (Sodium Chloride) 10 mls @ 300 mls/hr IV ACBREAKFAST CK Last Admin: 06/30/19 06:48 Dose: 300 mls/hr Bupivacaine HCl/Epinephrine Bitart (Sensorc Mpf 0.25%-Epi 1:[id number]) Confirm Administered Dose 0 mls @ as directed .ROUTE .STK-MED ONE Stop: 06/25/19 10:53 Lactated Ringer's (Ringers, Lactated) 1,000 mls @ 125 mls/hr IV ASDIRECTED [facility] Lactated Ringer's (Ringers, Lactated) 1,000 mls @ 999 mls/hr IV BOLUS ONE Stop: 06/25/19 20:53 Last Admin: 06/25/19 20:27 Dose: 999 mls/hr Sodium Chloride (Normal Saline) 500 mls @ 500 mls/hr IV .BOLUS [facility] Last Admin: 06/26/19 02:45 Dose: 500 mls/hr Sodium Chloride (Normal Saline) 500 mls @ 500 mls/hr IV .BOLUS [facility] Last Admin: 06/26/19 04:19 Dose: 500 mls/hr Sodium Chloride (Normal Saline) 1,000 mls @ 999 mls/hr IV ASDIRECTED [facility] Last Admin: 06/27/19 03:19 Dose: 999 mls/hr Iopamidol (Isovue Multipack-370 (76%)) 100 ml IVPUSH ONETIME ONE Stop: 06/23/19 19:57 Last Admin: 06/23/19 20:22 Dose: 100 ml Ketorolac Tromethamine (Toradol) 30 mg IVPUSH ONETIME ONE Stop: 06/23/19 19:36 Last Admin: 06/23/19 19:54 Dose: 30 mg Ketorolac Tromethamine (Toradol) 30 mg IVPUSH Q8H PRN PRN Reason: Pain Stop: 06/28/19 23:01 Last Admin: 06/26/19 09:10 Dose: 30 mg Lidocaine (Xylocaine-Mpf 2%) Confirm Administered Dose 5 ml .ROUTE .STK-MED ONE Stop: 06/25/19 10:35 Metoprolol Tartrate (Lopressor) Confirm Administered Dose 5 mg .ROUTE .STK-MED ONE Stop: 06/25/19 12:18 Midazolam HCl (Versed 1 Mg/Ml) Confirm Administered Dose 2 mg .ROUTE .STK-MED ONE Stop: 06/25/19 10:35 Morphine Sulfate (Morphine) 2 mg IVPUSH Q8H PRN PRN Reason: Pain Morphine Sulfate (Morphine Surgery Aide 30 Mg In 30 Ml) 0 mg IV ASDIRECTED PRN; Protocol PRN Reason: Pain (severe 7-10) Last Admin: 06/26/19 12:31 Dose: 30 mg Naloxone HCl (Narcan) 0.1 mg IVPUSH ASDIRECTED PRN PRN Reason: Respiratory Depression Ondansetron HCl (Zofran) 4 mg IVPUSH Q8H PRN PRN Reason: Nausea/Vomiting Ondansetron HCl (Zofran) Confirm Administered Dose 4 mg .ROUTE .STK-MED ONE Stop: 06/25/19 10:35 Phenylephrine HCl (Phenylephrine In Ns 100 Mcg/Ml) Confirm Administered Dose 1 mg .ROUTE .STK-MED ONE Stop: 06/25/19 11:50 Propofol (Diprivan 20 Ml) Confirm Administered Dose 200 mg .ROUTE .STK-MED ONE Stop: 06/25/19 10:35 Rocuronium [place] (Zemuron) Confirm Administered Dose 100 mg .ROUTE .STK-MED ONE Stop: 06/25/19 10:35 Sodium Chloride (Saline Flush) 10 ml FLUSH ASDIRECTED PRN PRN Reason: Keep Vein Open Last Admin: 06/23/19 23:15 Dose: 10 ml Sodium Chloride (Saline Flush) 2.5 ml FLUSH ASDIRECTED PRN PRN Reason: Keep Vein Open Last Admin: 06/23/19 23:16 Dose: 2.5 ml Succinylcholine Chloride (Succinylcholine Chloride) Confirm Administered Dose 200 mg .ROUTE .STK-MED ONE Stop: 06/25/19 10:35 - Exam General: Alert, Oriented GI/Abdominal Exam: Normal Bowel Sounds (wound cdi, no expressible materials/ cellulitis), No Distention Sepsis Event Note - Evaluation Sepsis Screening Result: No Definite Risk - Focused Exam Vital Signs: Vital Signs Temp Pulse Resp BP Pulse Ox 07/01/19 15:00 99.1 F 77 16 124/67 94 L 07/01/19 11:00 98.1 F 85 16 114/55 L 92 L Date Exam was Performed: 07/01/19 Time Exam was Performed: 21:15 - Problem List Review Problem List Initiated/Reviewed/Updated: Yes - My Orders Last 24 Hours: Active Orders 24 hr Category Date Time Status Consult to Home Health [CONS] Routine Cons 07/01/19 14:06 Active Regular Diet [DIET] Diet 07/01/19 Dinner Active Code Status [Resuscitation Status] Routine Resus Stat 07/01/19 13:31 Ordered Medication Orders Docusate Sodium (Colace) 100 mg PO DAILY PRN PRN Reason: Constipation Heparin Sodium (Porcine) (Heparin Sodium) 5,000 units SUBCUT BID CK Last Admin: 07/01/19 08:51 Dose: 5,000 units Admin: 06/30/19 20:48 Dose: 5,000 units Admin: 06/30/19 09:44 Dose: 5,000 units Admin: 06/29/19 20:25 Dose: 5,000 units Admin: 06/29/19 08:40 Dose: 5,000 units Admin: 06/28/19 22:12 Dose: 5,000 units Ondansetron HCl (Zofran) 4 mg IVPUSH Q8H PRN PRN Reason: Nausea/Vomiting Last Admin: 06/30/19 13:12 Dose: 4 mg Oxycodone/Acetaminophen (Percocet 325-5 Mg) 1 tab PO Q4H PRN PRN Reason: Pain Last Admin: 07/01/19 16:20 Dose: 1 tab Admin: 07/01/19 05:23 Dose: 1 tab Admin: 06/30/19 21:04 Dose: 1 tab - Assessment Assessment (Free Text/Narrative):: marianna po, had bm/flatus, wound is good, would dc home w home health nurse care in the morning; pt had been in hospital X days and s/p ex lap, extensive surgery, felt deconditioned, and because of surgery, pt would be weak to get around, as home bound, and would need skill service to check on wound, plan to dc home on home health care nurse help in the morning, pain script - Plan Plan (Free Text/Narrative):: marianna po, had bm/flatus, wound is good, would dc home w home health nurse care in the morning; pt had been in hospital X days and s/p ex lap, extensive surgery, felt deconditioned, and because of surgery, pt would be weak to get around, as home bound, and would need skill service to check on wound, plan to dc home on home health care nurse help in the morning, pain script
[2019-07-02] MEDS: Acetaminophen/oxyCODONE 325-5 MG Tab PO PRN ×2 (03:16→10:34)
[2019-07-02] MEDS: Heparin Sodium 5,000 Units/ML Vial SUBCUT SCH (08:34)
--- NOTE | 2019-07-02 11:25 | PCM.DCSUM1 ---
Discharge Summary - Hospital Course Free Text/Narrative:: pls refer to admission h/p for details, in summary, pt felt bloated, n/v X 24 hrs and with severe abd pain, seen in ed, ct > sbo; pt was admitted for further management Brief History: pls refer to admission h/p for details, in summary, pt felt bloated, n/v X 24 hrs and with severe abd pain, seen in ed, ct > sbo; pt was admitted for further management Diagnosis: Stroke: No - Discharge Data Discharge Date: 07/02/19 Discharge Disposition: Home, W Home Health Agency 06 Condition: Stable - Referral to Home Health Date of Face to Face Encounter: 07/02/19 Reason for Homebound Status: deconditioned after extensive surgery, laparotomy; homebound Primary Care Physician: Sim Whitlock MD Skilled Need: wound check - Patient Summary/Data Operative Procedure(s) Performed: 1) ex lap. 2) VICENTA. 3) placement of interceed Consults: Consultations 07/01/19 14:06 Consult to Home Health [CONS] Routine Hospital Course: pt admitted for sbo, pain has been resolved much and no nausea; but abd mildly distended; pt was admitted w ngt decompression; the next day, ngt output was minimal, and abd distension persisted; the 2nd day, pain increased; distension persisted, and nausea around ngt; pt was taken to surgery s/p ex lap, adhesion band and vicenta; postop pt was admitted to icu because of low urine output; and also by then pt had pl effusion, mild; and 4 days after surgery; pt had bm and passing flatus; ngt dced, and started clear; and subsequent adv to regular diet ; pt tolerated well, and amb by self; little abd pain; wound cdi; pt dc w hhcare and on script; fu as schedule - Patient Instructions Diet: Regular Diet as Tolerated Activity: No Lifting Over 10 Pounds, No Strenuous Activities Driving: Do Not Drive Showering/Bathing: May Shower Wound/Incision Care: Keep Operative Site/Wound Site Clean and Dry Notify Provider of: Fever, Drainage, Nausea and/or Vomiting - Discharge Plan Home Medications: Home Meds Ascorbic Acid [Vitamin C] 580 mg PO DAILY 12/27/17 [History] Aspirin 81 mg PO DAILY 12/27/17 [History] Cholecalciferol (Vitamin D3) [Vitamin D3] 2,000 unit PO DAILY 12/27/17 [History] Erythromycin Base [Erythromycin 0.5% Ophth Oint] 1 applic OP BEDTIME 12/27/17 [ History] Fish Oil/DHA/EPA [Fish Oil 1,200 MG] 2 each PO BID 12/27/17 [History] Metoprolol Succinate [Toprol XL] 25 mg PO DAILY 12/27/17 [History] Multivitamin [Multivitamins] 1 each PO DAILY 12/27/17 [History] Ubidecarenone [Coq-10] 100 mg PO DAILY 12/27/17 [History] Carboxymethyl/Gly/Poly80/Pf [Refresh Optive Advanced Drops] 1 drop EYEBOTH . NEEDED PRN 01/01/19 [History] Cyanocobalamin (Vitamin B-12) [B-12] 1,000 mcg PO DAILY 01/01/19 [History] Magnesium Glycinate [Mag Glycinate] 300 mg PO BID 01/01/19 [History] Polyethylene Glycol 3350 [MiraLAX] 1.5 tbsp PO DAILY 01/01/19 [History] Patient Handouts: Small Bowel Obstruction, [id number], Exploratory Laparotomy , Adult, Care After Referrals: Sim Whitlock MD [Primary Care Provider] - 07/10/19 2:45 pm Thiago Perez MD [Physician] - 07/11/19 9:45 am - Discharge Summary/Plan Comment DC Time >30 min.: Yes - Patient Data Vitals - Most Recent: Last Vital Signs Temp 98.3 F 07/02/19 07:00 Pulse 89 07/02/19 07:00 Resp 16 07/02/19 07:00 BP 115/61 07/02/19 07:00 Pulse Ox 93 L 07/02/19 07:00 Weight - Most Recent: 130 lb 1.6 oz I&O - Last 24 hours: Intake & Output 07/01/19 07/02/19 07/02/19 22:59 06:59 14:59 Intake Total 360 560 Output Total 1100 1500 Balance -835 -760 Med Orders - Current: Current Medications Docusate Sodium (Colace) 100 mg PO DAILY PRN PRN Reason: Constipation Last Admin: 07/02/19 09:15 Dose: 100 mg Heparin Sodium (Porcine) (Heparin Sodium) 5,000 units SUBCUT BID CK Last Admin: 07/02/19 08:34 Dose: 5,000 units Ondansetron HCl (Zofran) 4 mg IVPUSH Q8H PRN PRN Reason: Nausea/Vomiting Last Admin: 06/30/19 13:12 Dose: 4 mg Oxycodone/Acetaminophen (Percocet 325-5 Mg) 1 tab PO Q4H PRN PRN Reason: Pain Last Admin: 07/02/19 10:34 Dose: 1 tab Discontinued Medications Albuterol (Proventil Neb Soln) 2.5 mg NEB ONETIME PRN PRN Reason: Wheezing Atropine Sulfate (Atropine 0.1 Mg/Ml) 0.5 mg IVPUSH ASDIRECTED PRN PRN Reason: Hypo-perfusion Atropine Sulfate (Atropine 0.1 Mg/Ml) 1 mg IVPUSH ASDIRECTED PRN PRN Reason: Hypo-Perfusion Benzocaine (Hurricaine One 20%) 2 each MUCMEM ONETIME ONE Stop: 06/23/19 22:43 Last Admin: 06/23/19 23:15 Dose: 2 each Benzocaine (Hurricaine One 20%) 1 each MUCMEM Q4HR PRN PRN Reason: Sore Throat Last Admin: 06/24/19 18:47 Dose: 1 each Bisacodyl (Dulcolax) 10 mg RECTAL ONETIME ONE Stop: 06/24/19 17:42 Last Admin: 06/24/19 17:53 Dose: 10 mg Bisacodyl (Dulcolax) 10 mg RECTAL ONETIME ONE Stop: 06/25/19 08:43 Last Admin: 06/25/19 10:14 Dose: Not Given Bisacodyl (Dulcolax) 10 mg RECTAL ONETIME ONE Stop: 06/29/19 08:42 Last Admin: 06/29/19 09:12 Dose: 10 mg Bupivacaine HCl (Marcaine 0.5%) Confirm Administered Dose 120 ml .ROUTE .STK- MED ONE Stop: 06/25/19 10:53 Cefazolin Sodium (Ancef) Confirm Administered Dose 1 gm .ROUTE .STK-MED ONE Stop: 06/25/19 10:53 Dextrose/Water (Dextrose 50% In Water) 50 ml IVPUSH ASDIRECTED PRN PRN Reason: Hypoglycemia Ephedrine Sulfate (Ephedrine Sulfate) Confirm Administered Dose 50 mg .ROUTE .STK-MED ONE Stop: 06/25/19 11:49 Epinephrine HCl (Epinephrine 1:10,000) 1 mg IVPUSH ASDIRECTED PRN PRN Reason: ACLS Guidelines Fentanyl (Sublimaze) Confirm Administered Dose 250 mcg .ROUTE .STK-MED ONE Stop: 06/25/19 10:35 Fentanyl (Sublimaze) 50 mcg IVPUSH Q5M PRN PRN Reason: Pain Furosemide (Lasix) 20 mg PO ONETIME ONE Stop: 06/30/19 09:34 Last Admin: 06/30/19 10:19 Dose: 20 mg Glycopyrrolate (Robinul) Confirm Administered Dose 0.2 mg .ROUTE .STK-MED ONE Stop: 06/25/19 11:52 Hydromorphone HCl (Dilaudid) Confirm Administered Dose 2 mg .ROUTE .STK-MED ONE Stop: 06/25/19 12:45 Sodium Chloride (Normal Saline) 1,000 mls @ 999 mls/hr IV STAT ONE Stop: 06/23/19 20:43 Last Admin: 06/23/19 19:54 Dose: 999 mls/hr Lactated Ringer's (Ringers, Lactated) 1,000 mls @ 100 mls/hr IV ASDIRECTED [facility] Last Admin: 06/29/19 21:49 Dose: 100 mls/hr Piperacillin Sod/Tazobactam (Sod 3.375 gm/ Sodium Chloride) 50 mls @ 100 mls/ hr IV Q8H [facility] Last Admin: 06/30/19 06:50 Dose: 100 mls/hr Pantoprazole Sodium 40 mg/ (Sodium Chloride) 10 mls @ 300 mls/hr IV ACBREAKFAST [facility] Last Admin: 06/30/19 06:48 Dose: 300 mls/hr Bupivacaine HCl/Epinephrine Bitart (Sensorc Mpf 0.25%-Epi 1:[id number]) Confirm Administered Dose 0 mls @ as directed .ROUTE .STK-MED ONE Stop: 06/25/19 10:53 Lactated Ringer's (Ringers, Lactated) 1,000 mls @ 125 mls/hr IV ASDIRECTED [facility] Lactated Ringer's (Ringers, Lactated) 1,000 mls @ 999 mls/hr IV BOLUS ONE Stop: 06/25/19 20:53 Last Admin: 06/25/19 20:27 Dose: 999 mls/hr Sodium Chloride (Normal Saline) 500 mls @ 500 mls/hr IV .BOLUS [facility] Last Admin: 06/26/19 02:45 Dose: 500 mls/hr Sodium Chloride (Normal Saline) 500 mls @ 500 mls/hr IV .BOLUS [facility] Last Admin: 06/26/19 04:19 Dose: 500 mls/hr Sodium Chloride (Normal Saline) 1,000 mls @ 999 mls/hr IV ASDIRECTED [facility] Last Admin: 06/27/19 03:19 Dose: 999 mls/hr Iopamidol (Isovue Multipack-370 (76%)) 100 ml IVPUSH ONETIME ONE Stop: 06/23/19 19:57 Last Admin: 06/23/19 20:22 Dose: 100 ml Ketorolac Tromethamine (Toradol) 30 mg IVPUSH ONETIME ONE Stop: 06/23/19 19:36 Last Admin: 06/23/19 19:54 Dose: 30 mg Ketorolac Tromethamine (Toradol) 30 mg IVPUSH Q8H PRN PRN Reason: Pain Stop: 06/28/19 23:01 Last Admin: 06/26/19 09:10 Dose: 30 mg Lidocaine (Xylocaine-Mpf 2%) Confirm Administered Dose 5 ml .ROUTE .STK-MED ONE Stop: 06/25/19 10:35 Metoprolol Tartrate (Lopressor) Confirm Administered Dose 5 mg .ROUTE .STK-MED ONE Stop: 06/25/19 12:18 Midazolam HCl (Versed 1 Mg/Ml) Confirm Administered Dose 2 mg .ROUTE .STK-MED ONE Stop: 06/25/19 10:35 Morphine Sulfate (Morphine) 2 mg IVPUSH Q8H PRN PRN Reason: Pain Morphine Sulfate (Morphine Finance Associate 30 Mg In 30 Ml) 0 mg IV ASDIRECTED PRN; Protocol PRN Reason: Pain (severe 7-10) Last Admin: 06/26/19 12:31 Dose: 30 mg Naloxone HCl (Narcan) 0.1 mg IVPUSH ASDIRECTED PRN PRN Reason: Respiratory Depression Ondansetron HCl (Zofran) 4 mg IVPUSH Q8H PRN PRN Reason: Nausea/Vomiting Ondansetron HCl (Zofran) Confirm Administered Dose 4 mg .ROUTE .STK-MED ONE Stop: 06/25/19 10:35 Phenylephrine HCl (Phenylephrine In Ns 100 Mcg/Ml) Confirm Administered Dose 1 mg .ROUTE .STK-MED ONE Stop: 06/25/19 11:50 Propofol (Diprivan 20 Ml) Confirm Administered Dose 200 mg .ROUTE .STK-MED ONE Stop: 06/25/19 10:35 Rocuronium [place] (Zemuron) Confirm Administered Dose 100 mg .ROUTE .STK-MED ONE Stop: 06/25/19 10:35 Sodium Chloride (Saline Flush) 10 ml FLUSH ASDIRECTED PRN PRN Reason: Keep Vein Open Last Admin: 06/23/19 23:15 Dose: 10 ml Sodium Chloride (Saline Flush) 2.5 ml FLUSH ASDIRECTED PRN PRN Reason: Keep Vein Open Last Admin: 06/23/19 23:16 Dose: 2.5 ml Succinylcholine Chloride (Succinylcholine Chloride) Confirm Administered Dose 200 mg .ROUTE .STK-MED ONE Stop: 06/25/19 10:35
[2019-07-02 11:52] VITALS: BP 129/63; PULSE 75
== END 2019-07-02 15:30 | disposition home health service (06) | DRG 336 ==
LOC: MW.ED 19:04 → MW.MS 22:57 → MW.ICU 06-25 14:11 → MW.MS 06-27 19:08
PROVIDERS: ADMIT Surgery; ATTEND Surgery
PROC: 0D9670Z Drainage of Stomach with Drainage Device, Via Natural or Artificial Opening (ICD-10-PCS; 2019-06-23)
PROC: 0DN80ZZ Release Small Intestine, Open Approach (ICD-10-PCS; principal; 2019-06-25)
PROC: 3E0M05Z Introduction of Adhesion Barrier into Peritoneal Cavity, Open Approach (ICD-10-PCS; 2019-06-25)
DX: K56.609 Unspecified intestinal obstruction, unspecified as to partial versus complete obstruction (principal); J90 Pleural effusion, not elsewhere classified; K59.09 Other constipation; R18.8 Other ascites; H54.7 Unspecified visual loss; M81.0 Age-related osteoporosis without current pathological fracture; I95.9 Hypotension, unspecified; R33.9 Retention of urine, unspecified; R34 Anuria and oliguria; Z90.710 Acquired absence of both cervix and uterus; Z88.1 Allergy status to other antibiotic agents; Z79.2 Long term (current) use of antibiotics; Z79.82 Long term (current) use of aspirin; Z79.899 Other long term (current) drug therapy; Z98.890 Other specified postprocedural states; Z90.49 Acquired absence of other specified parts of digestive tract
CPT/HCPCS: 36415; 74177; 80053; 81003; 83605 ×2; 83690; 85025; 96361; 96374; 99285; J1885; J7030; Q9967; 36600; 51702; 71045; 71045-26; 74176; 74176-26; 80048; 82803; 83735; 83880; 84484; 85049; 86850; 86900; 86901; 93005; A9270-GY; C1765; C9113; J0330; J0690; J1170; J1644; J2001; J2250; J2274; J2370; J2405; J2543; J2704; J3010; J3490; J7040; J7050; J7120

== ENCOUNTER 2019-08-29 02:41 | Emergency (ER) | payer MEDICARE, OTHER ==
[2019-08-29] MEDS ORDERED: Sodium Chloride 0.9% 1,000 ML IV SCH (03:00)
--- NOTE | 2019-08-29 03:02 | EDM.PDOC ---
ED [facility] GENERAL MEDICAL PROBLEM - General Chief Complaint: Cardiovascular Problem Stated Complaint: FAST HEARTBEAT, PELVIC PRESSURE Time Seen by Provider: 08/29/19 03:01 Source of Information: Reports: Patient, Old Records History Limitations: Reports: No Limitations - History of Present Illness INITIAL COMMENTS - FREE TEXT/NARRATIVE: Patient is an 68-year-old female with a chief complaint of feeling like her heart is racing. Patient states the symptoms started 2:00 in the morning. Patient has had the symptoms for the past several nights. Patient states she does experience them during the day as well. Nothing seems to exacerbate them. Patient reports with her feeling of her heart racing she has some chest pressure along with lower back pressure feels like a cramp is radiating down the back of both legs. Patient states she feels like she is having tingling in the legs as well. Patient denies any abdominal pain, nausea, vomiting. Patient states that she has not done any intervention for the symptoms. Of the however they have worsened. Pmhx: As mentioned in HPI Pshx: Laparotomy for small bowel obstruction, cholecystectomy Family Hx: noncontributory Smoking history? no Etoh use? none Drug use? none In addition to that documented in the HPI above, the additional ROS was obtained : Constitutional: Denies fevers or chills Eyes: Denies vision changes ENMT: Denies sore throat CV: Denies chest pain Resp: Denies SOB GI: Denies vomiting or diarrhea : Denies painful urination MSK: Denies recent trauma Skin: Denies new rashes Neuro: Per HPI Endocrine: Denies unexpected weight loss Heme: Denies bleeding disorders I have reviewed the triage vital signs Const: Well nourished, well developed, appears stated age Eyes: PERRL, no conjunctival injection HENT: NCAT, Neck supple without meningismus CV: RRR, Warm, well-perfused extremities RESP: CTAB, Unlabored respiratory effort GI: soft, non-tender, non-distended, no masses MSK: No gross deformities appreciated Skin: Warm, dry. No rashes Neuro: Alert, filter screen cleaner II-XII grossly intact. Sensation and motor function of extremities grossly intact. Psych: Appropriate mood and affect Assessment and plan: Patient is a 68-year-old female with recent abdominal surgery presenting with 2 separate complaints seem to be unrelated. A broad differential was considered for the symptoms of heart racing including ACS, A. fib, pulmonary embolism, aortic dissection. Work-up was completed without any evidence of abnormalities. Patient's EKG demonstrates nonspecific ST changes and patient is in sinus rhythm. Heart score is 3. When EKG was compared to prior done in June there is no significant change from that EKG. For the pelvic discomfort thoughts of aortic dissection are considered given patient's initial presentation with elevated blood pressure and associated chest discomfort and feeling of heart racing. CT angiography was completed which did not demonstrate any evidence of dissection. There is also no evidence of bowel obstruction. Patient does have constipation. Patient was instructed to stop MiraLAX by Dr. Valenzuela. Patient was educated on constipation and told to follow-up as an outpatient with Dr. Valenzuela for recommendations regarding constipation medications. For the palpitations, the patient was recommended to follow-up with primary care physician for consideration of Holter monitor and other outpatient testing. At this period of time, the patient is hemodynamically stable. The patient's heart rate and blood pressure improved. Patient feels better. Patient will be discharged to home. chest Pain Score (Numeric/FACES): 3 - Related Data Allergies Allergy/AdvReac Type Severity Reaction Status Date / Time levofloxacin [From Levaquin] Allergy Unknown unknown Verified 08/29/19 02:50 Home Meds: Home Meds Ascorbic Acid [Vitamin C] 580 mg PO DAILY 12/27/17 [History] Aspirin 81 mg PO DAILY 12/27/17 [History] Cholecalciferol (Vitamin D3) [Vitamin D3] 2,000 unit PO DAILY 12/27/17 [History] Erythromycin Base [Erythromycin 0.5% Ophth Oint] 1 applic EYEBOTH BEDTIME [History] Metoprolol Succinate [Toprol XL] 12.5 mg PO DAILY 12/27/17 [History] Multivitamin [Multivitamins] 1 each PO DAILY 12/27/17 [History] Ubidecarenone [Coq-10] 100 mg PO DAILY 12/27/17 [History] Carboxymethyl/Gly/Poly80/Pf [Refresh Optive Advanced Drops] 1 drop EYEBOTH . NEEDED PRN 01/01/19 [History] Magnesium Glycinate [Mag Glycinate] 300 mg PO BID 01/01/19 [History] Past Medical History HEENT History: Reports: Impaired Vision Other HEENT History: glasses Cardiovascular History: Reports: Other (See Below) Other Cardiovascular History: PSVT Respiratory History: Reports: None Gastrointestinal History: Reports: Chronic Constipation, Other (See Below) 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 History: Reports: Other (See Below) Other 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 History: Pelvis Congestion Syndrome [employer] History: Reports: Musculoskeletal History: Reports: Osteoporosis Other Musculoskeletal History: fx to Left ulna Neurological History: Reports: None Psychiatric History: Reports: None Endocrine/Metabolic History: Reports: None Hematologic History: Reports: None Immunologic History: Reports: None Oncologic (Cancer) History: Reports: None Dermatologic History: Reports: None - Infectious Disease History Infectious Disease History: Reports: Chicken Pox, Measles, Mumps - Past Surgical History Head Surgeries/Procedures: Reports: None HEENT Surgical History: Reports: None, Tonsillectomy Cardiovascular Surgical History: Reports: Cardiac Ablation Respiratory Surgical History: Reports: None GI Surgical History: Reports: Cholecystectomy, Small Bowel Female Surgical History: Reports: Hysterectomy, Salpingo-Oophorectomy Endocrine Surgical History: Reports: None Neurological Surgical History: Reports: None Musculoskeletal Surgical History: Reports: None Oncologic Surgical History: Reports: None Dermatological Surgical History: Reports: None Social & Family History - Family History Family Medical History: Noncontributory HEENT: Reports: None Cardiac: Reports: High Cholesterol Respiratory: Reports: None GI: Reports: None : Reports: None OBGYN: Reports: None Musculoskeletal: Reports: None Neurological: Reports: None Psychiatric: Reports: None Endocrine/Metabolic: Reports: Diabetes, type II Hematologic: Reports: None Immunologic: Reports: None Dermatologic: Reports: None Oncologic: Reports: None - Tobacco Use Smoking Status *Q: Never Smoker Second Hand Smoke Exposure: No - Caffeine Use Caffeine Use: Reports: None - Recreational Drug Use Recreational Drug Use: No ED ROS GENERAL - Review of Systems Review Of Systems: See Below ED EXAM, GENERAL - Physical Exam Exam: See Below Course - Vital Signs Last Recorded V/S: Last Vital Signs Temp 36.2 C 08/29/19 02:44 Pulse 83 08/29/19 04:15 Resp 18 08/29/19 04:15 BP 125/50 L 08/29/19 04:15 Pulse Ox 98 08/29/19 04:15 - Orders/Labs/Meds Orders: Active Orders 24 hr Category Date Time Status Sodium Chloride 0.9% [Normal Saline] 1,000 ml Med 08/29/19 03:00 Active IV ASDIRECTED Medication Orders Sodium Chloride (Normal Saline) 1,000 mls @ 150 mls/hr IV ASDIRECTED CK Last Admin: 08/29/19 03:00 Dose: 150 mls/hr Labs: Laboratory Tests 08/29/19 08/29/19 08/29/19 Range/Units 02:45 02:45 02:45 WBC 8.42 (4.0-11.0) K/uL RBC 4.61 (4.30-5.90) M/uL Hgb 13.6 (12.0-16.0) g/dL Hct 42.6 (36.0-46.0) % MCV 92.4 (80.0-98.0) fL MCH 29.5 (27.0-32.0) pg MCHC 31.9 (31.0-37.0) g/dL RDW Std Deviation 44.0 (28.0-62.0) fl RDW Coeff of Arianne 13 (11.0-15.0) % Plt Count 249 (150-400) K/uL MPV 10.50 (7.40-12.00) fL Neut % (Auto) 50.8 (48.0-80.0) % Lymph % (Auto) 41.1 H (16.0-40.0) % [place] % (Auto) 6.1 (0.0-15.0) % Eos % (Auto) 1.8 (0.0-7.0) % Baso % (Auto) 0.2 (0.0-1.5) % Neut # (Auto) 4.3 (1.4-5.7) K/uL Lymph # (Auto) 3.5 H (0.6-2.4) K/uL Win[place] # (Auto) 0.5 (0.0-0.8) K/uL Eos # (Auto) 0.2 (0.0-0.7) K/uL Baso # (Auto) 0.0 (0.0-0.1) K/uL Nucleated RBC % 0.0 /100WBC Nucleated RBCs # 0 K/uL INR 0.97 D-Dimer, Quantitative 0.56 H (0.0-0.50) mg/L FEU Lactate 1.1 (0.20-2.00) mmol/L Sodium (136-145) mmol/L Potassium (3.5-5.1) mmol/L Chloride (98-107) mmol/L Carbon Dioxide (21.0-32.0) mmol/L BUN (7.0-18.0) mg/dL Creatinine (0.6-1.0) mg/dL Est Cr Clr Drug Dosing mL/min Estimated GFR (MDRD) ml/min Glucose (74-106) mg/dL Calcium (8.5-10.1) mg/dL Total Bilirubin (0.2-1.0) mg/dL AST (15-37) IU/L ALT (14-63) IU/L Alkaline Phosphatase (46-116) U/L Troponin I (0.000-0.056) ng/mL Total Protein (6.4-8.2) g/dL Albumin (3.4-5.0) g/dL Globulin (2.6-4.0) g/dL Albumin/Globulin Ratio (0.9-1.6) Urine Color Urine Appearance Urine pH (5.0-8.0) Ur Specific Sumner (1.001-1.035) Urine Protein (NEGATIVE) mg/dL Urine Glucose (UA) (NEGATIVE) mg/dL Urine Ketones (NEGATIVE) mg/dL Urine Occult Blood (NEGATIVE) Urine Nitrite (NEGATIVE) Urine Bilirubin (NEGATIVE) Urine Urobilinogen (<2.0) EU/dL Ur Leukocyte Esterase (NEGATIVE) 08/29/19 08/29/19 08/29/19 Range/Units 02:45 02:45 04:15 WBC (4.0-11.0) K/uL RBC (4.30-5.90) M/uL Hgb (12.0-16.0) g/dL Hct (36.0-46.0) % MCV (80.0-98.0) fL MCH (27.0-32.0) pg MCHC (31.0-37.0) g/dL RDW Std Deviation (28.0-62.0) fl RDW Coeff of Arianne (11.0-15.0) % Plt Count (150-400) K/uL MPV (7.40-12.00) fL Neut % (Auto) (48.0-80.0) % Lymph % (Auto) (16.0-40.0) % [place] % (Auto) (0.0-15.0) % Eos % (Auto) (0.0-7.0) % Baso % (Auto) (0.0-1.5) % Neut # (Auto) (1.4-5.7) K/uL Lymph # (Auto) (0.6-2.4) K/uL Win[place] # (Auto) (0.0-0.8) K/uL Eos # (Auto) (0.0-0.7) K/uL Baso # (Auto) (0.0-0.1) K/uL Nucleated RBC % /100WBC Nucleated RBCs # K/uL INR D-Dimer, Quantitative (0.0-0.50) mg/L FEU Lactate (0.20-2.00) mmol/L Sodium 142 (136-145) mmol/L Potassium 3.8 (3.5-5.1) mmol/L Chloride 103 (98-107) mmol/L Carbon Dioxide 28.9 (21.0-32.0) mmol/L BUN 16 (7.0-18.0) mg/dL Creatinine 0.9 (0.6-1.0) mg/dL Est Cr Clr Drug Dosing 47.22 mL/min Estimated GFR (MDRD) > 60.0 ml/min Glucose 102 (74-106) mg/dL Calcium 9.5 (8.5-10.1) mg/dL Total Bilirubin 0.6 (0.2-1.0) mg/dL AST 24 (15-37) IU/L ALT 28 (14-63) IU/L Alkaline Phosphatase 105 (46-116) U/L Troponin I < 0.050 (0.000-0.056) ng/mL Total Protein 8.0 (6.4-8.2) g/dL Albumin 4.2 (3.4-5.0) g/dL Globulin 3.8 (2.6-4.0) g/dL Albumin/Globulin Ratio 1.1 (0.9-1.6) Urine Color YELLOW Urine Appearance CLEAR Urine pH 7.0 (5.0-8.0) Ur Specific Sumner 1.010 (1.001-1.035) Urine Protein NEGATIVE (NEGATIVE) mg/dL Urine Glucose (UA) NEGATIVE (NEGATIVE) mg/dL Urine Ketones NEGATIVE (NEGATIVE) mg/dL Urine Occult Blood NEGATIVE (NEGATIVE) Urine Nitrite NEGATIVE (NEGATIVE) Urine Bilirubin NEGATIVE (NEGATIVE) Urine Urobilinogen 0.2 (<2.0) EU/dL Ur Leukocyte Esterase NEGATIVE (NEGATIVE) Meds: Medications Generic Name Dose Route Start Last Admin Trade Name Freq PRN Reason Stop Dose Admin Sodium Chloride 1,000 mls @ 150 mls/hr 08/29/19 03:00 08/29/19 03:00 Normal Saline IV 150 mls/hr ASDIRECTED CK Administration Discontinued Medications Generic Name Dose Route Start Last Admin Trade Name Freq PRN Reason Stop Dose Admin Iopamidol 90 ml 08/29/19 03:59 08/29/19 04:00 Isovue Multipack-370 (76%) IVPUSH 08/29/19 04:00 90 ml ONETIME ONE Administration Departure - Departure Time of Disposition: 04:44 Disposition: Home, Self-Care 01 Clinical Impression: Palpitations, Constipation Referrals: Sim Whitlock MD [Primary Care Provider] - Forms: ED Department Discharge Sepsis Event Note - Evaluation Sepsis Screening Result: No Definite Risk - Focused Exam Vital Signs: Vital Signs Temp Pulse Resp BP Pulse Ox 08/29/19 04:15 83 18 125/50 L 98 08/29/19 03:00 95 18 131/72 98 08/29/19 02:44 36.2 C 104 H 20 164/87 H 100 Date Exam was Performed: 08/29/19 Time Exam was Performed: 04:42 - My Orders Last 24 Hours: My Active Orders 08/29/19 03:00 Sodium Chloride 0.9% [Normal Saline] 1,000 ml IV ASDIRECTED - Assessment/Plan Last 24 Hours: My Active Orders 08/29/19 03:00 Sodium Chloride 0.9% [Normal Saline] 1,000 ml IV ASDIRECTED
[2019-08-29 03:14] LABS: BLOOD UREA NITROGEN,BUN 16 mg/dL (7.0-18.0); CARBON DIOXIDE,CO2 28.9 mmol/L (21.0-32.0); CHLORIDE,CL 103 mmol/L (98-107); GLUCOSE RANDOM 102 mg/dL (74-106); POTASSIUM,K 3.8 mmol/L (3.5-5.1); SODIUM,NA 142 mmol/L (136-145)
--- NOTE | 2019-08-29 03:38 | CR ---
INDICATION: Chest pain TECHNIQUE: Portable upright frontal view of the chest. COMPARISON: None FINDINGS: The lungs are clear. There is no sizable pleural effusion or pneumothorax. The cardiomediastinal silhouette is normal. The visualized osseous structures are unremarkable. IMPRESSION: No acute intrathoracic process. Dictated by Sadie Zaldivar MD @ Aug 29 2019 3:36AM Signed by Dr. Sadie Zaldivar @ Aug 29 2019 3:36AM
[2019-08-29] MEDS ORDERED: Iopamidol 755 MG/ML 200 ML Multipack Bottle IVPUSH ONE (03:59)
[2019-08-29 04:21] VITALS: PULSE 83
--- NOTE | 2019-08-29 04:27 | CT ---
INDICATION: Chest pain, elevated D-dimer COMPARISON: None TECHNIQUE: Contrast enhanced axial CT imaging through the chest, optimized for assessment of the pulmonary arterial tree. 90 mL Isovue 370 contrast agent was administered intravenously. Sagittal and coronal reconstructions are provided. FINDINGS: There is adequate opacification of the pulmonary arterial tree without evidence of thromboembolism. The main pulmonary artery is nondilated. The heart is non enlarged. There is no pericardial effusion. There is normal caliber of the thoracic aorta. There is no mediastinal lymphadenopathy. There are small right and trace left pleural effusions. Clustered micronodular opacities in the lingula are favored to represent a focal infectious/inflammatory process. There is mild right middle lobe atelectasis. The thoracic osseous structures are unremarkable. IMPRESSION: 1. No evidence of pulmonary thromboembolism. 2. Clustered micronodular opacities in the lingula, favored to represent a focal infectious/inflammatory process. Correlate clinically. 3. Small right and trace left pleural effusions. Please note that all CT scans at this facility use dose modulation, iterative reconstruction, and/or weight-based dosing when appropriate to reduce radiation dose to as low as reasonably achievable. Dictated by Sadie Zaldivar MD @ Aug 29 2019 4:16AM Signed by Dr. Sadie Zaldivar @ Aug 29 2019 4:25AM
--- NOTE | 2019-08-29 04:34 | CT ---
Indication: Pelvic pressure Technique: Contrast enhanced axial CT imaging through the abdomen and pelvis. 90 mL Isovue 370 contrast agent was administered intravenously. Sagittal and coronal reconstructions are provided. Comparison: CT abdomen pelvis with contrast 06/23/2019 Findings: There is no significant abnormality of the liver, spleen, pancreas, and adrenal glands. Cholecystectomy clips are noted. There is a 2 mm nonobstructing stone in the lower pole of the right kidney. The kidneys are otherwise unremarkable. The portal vein and IVC are patent. There is normal caliber of the abdominal aorta. The stomach and duodenum are unremarkable. There are no abnormally dilated small bowel loops. The appendix is noninflamed. There is no colonic wall thickening. Prominent stool throughout the colon suggests constipation. No inflammatory changes are demonstrated in the mesentery. There is no free intraperitoneal fluid or air. There is no abdominal lymphadenopathy. The urinary bladder is moderately distended. The uterus is absent. The visualized osseous structures are unremarkable. The included lung bases are clear. Impression: No acute process demonstrated in the abdomen and pelvis. Prominent colonic stool load suggests constipation. Please note that all CT scans at this facility use dose modulation, iterative reconstruction, and/or weight-based dosing when appropriate to reduce radiation dose to as low as reasonably achievable. Dictated by Sadie Zaldivar MD @ Aug 29 2019 4:25AM Signed by Dr. Sadie Zaldivar @ Aug 29 2019 4:31AM
[2019-08-29 04:50] VITALS: BP 123/61
== END 2019-08-29 04:55 | disposition home or self-care (01) ==
LOC: MW.ED 02:41
DX: R00.2 Palpitations (principal); K59.00 Constipation, unspecified; Z88.1 Allergy status to other antibiotic agents
CPT/HCPCS: 36415; 71045; 71275; 74177; 80053; 81003; 83605; 84484; 85025; 85379; 85610; 93005; 96360; 96361; 99285; J7030; Q9967; 99284

== ENCOUNTER 2020-11-30 15:23 | Emergency (ER) | payer MEDICARE, OTHER ==
[2020-11-30] MEDS ORDERED: Sodium Chloride 0.9% 10 ML Syringe FLUSH PRN (15:39)
[2020-11-30] MEDS ORDERED: Sodium Chloride 0.9% 2.5 ML Syringe FLUSH PRN (15:39)
[2020-11-30] MEDS ORDERED: Aspirin 81 MG Tab.Chew PO ONE (15:39)
--- NOTE | 2020-11-30 15:47 | EDM.PDOC ---
<MorgancarlosSai kapoor Leora - Last Filed: 11/30/20 19:09> ED HPI GENERAL MEDICAL PROBLEM - General Chief Complaint: Chest Pain Stated Complaint: CHEST PRESSURE PAIN ON LEFT ARM Time Seen by Provider: 11/30/20 15:32 Source of Information: Reports: Patient History Limitations: Reports: No Limitations - History of Present Illness INITIAL COMMENTS - FREE TEXT/NARRATIVE: 70-year-old female past medical history paroxysmal SVT presents for chest pain. Patient states that she was at rest roughly 45 min prior to arrival when she began to experience a tightness/heaviness in her left anterior chest radiating into her left arm and upper left-sided neck. No associated shortness of breath. Pain is not pleuritic. Pain seems to be improving but is still there. No crispin sea or vomiting. No diaphoresis. Uncertain if exertional as patient him straight to the emergency department. Patient notes her last stress test was many years ago. chest Pain Score (Numeric/FACES): 4 - Related Data Allergies Allergy/AdvReac Type Severity Reaction Status Date / Time levofloxacin [From Levaquin] Allergy Unknown unknown Verified 11/30/20 15:28 Home Meds: Home Meds Ascorbic Acid [Vitamin C] 580 mg PO DAILY 12/27/17 [History] Aspirin 81 mg PO DAILY 12/27/17 [History] Cholecalciferol (Vitamin D3) [Vitamin D3] 2,000 unit PO DAILY 12/27/17 [History] Erythromycin Base [Erythromycin 0.5% Ophth Oint] 1 applic EYEBOTH BEDTIME 12/27/17 [History] Metoprolol Succinate [Toprol XL] 12.5 mg PO DAILY 12/27/17 [History] Multivitamin [Multivitamins] 1 each PO DAILY 12/27/17 [History] Ubidecarenone [Coq-10] 100 mg PO DAILY 12/27/17 [History] Carboxymethyl/Gly/Poly80/Pf [Refresh Optive Advanced Drops] 1 drop EYEBOTH . 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: Reports: Musculoskeletal History: Reports: Osteoporosis Other Musculoskeletal History: fx to Left ulna Neurological History: Reports: None Psychiatric History: Reports: None Endocrine/Metabolic History: Reports: None Hematologic History: Reports: None Immunologic History: Reports: None Oncologic (Cancer) History: Reports: None Dermatologic History: Reports: None - Infectious Disease History Infectious Disease History: Reports: Chicken Pox, Measles, Mumps - Past Surgical History Head Surgeries/Procedures: Reports: None HEENT Surgical History: Reports: None, Tonsillectomy Cardiovascular Surgical History: Reports: Cardiac Ablation Other Cardiovascular Surgeries/Procedures: ablation 2007 Respiratory Surgical History: Reports: None GI Surgical History: Reports: Cholecystectomy, Small Bowel Female Surgical History: Reports: Hysterectomy, Salpingo-Oophorectomy Endocrine Surgical History: Reports: None Neurological Surgical History: Reports: None Musculoskeletal Surgical History: Reports: None Oncologic Surgical History: Reports: None Dermatological Surgical History: Reports: None Social & Family History - Family History Family Medical History: No Pertinent Family History HEENT: Reports: None Cardiac: Reports: High Cholesterol Respiratory: Reports: None GI: Reports: None : Reports: None OBGYN: Reports: None Musculoskeletal: Reports: None Neurological: Reports: None Psychiatric: Reports: None Endocrine/Metabolic: Reports: Diabetes, type II Hematologic: Reports: None Immunologic: Reports: None Dermatologic: Reports: None Oncologic: Reports: None - Tobacco Use Tobacco Use Status *Q: Never Tobacco User Second Hand Smoke Exposure: No - Caffeine Use Caffeine Use: Reports: None - Recreational Drug Use Recreational Drug Use: No ED ROS GENERAL - Review of Systems Review Of Systems: Comprehensive ROS is negative, except as noted in HPI. ED EXAM, GENERAL - Physical Exam Exam: See Below Exam Limited By: No Limitations General Appearance: Alert, WD/WN, No Apparent Distress Throat/Mouth: Normal Voice, No Airway Compromise Head: Atraumatic, Normocephalic Neck: Normal Inspection Respiratory/Chest: No Respiratory Distress, Lungs Clear, Normal Breath Sounds, No Accessory Muscle Use Cardiovascular: Normal Peripheral Pulses, Regular Rate, Rhythm, No Edema GI/Abdominal: Soft, Non-Tender Extremities: Normal Inspection Neurological: Alert, Normal Cognition Psychiatric: Normal Affect, Normal Mood Skin Exam: Warm, Dry, Intact, Normal Color #1 Interpretation EKG Date: 11/30/20 Time: 15:27 Rhythm: NSR Rate (Beats/Min): 74 Reading: Normal P-Wave: Present QRS: Normal ST-T: Normal QT: Normal MO/PQ Interval: 127 Comparison: NA - No Prior EKG EKG Interpretation Comments: normal EKG Course - Re-Assessments/Exams Free Text/Narrative Re-Assessment/Exam: 11/30/20 16:44 Patient's pain is improving. Initial set of labs is normal. Patient is have a heart score of 5 mostly secondary to suspicious history and advanced age. I discussed with patient chest pain observation admission but she is uncertain if she wants to stay at this time. She is definitely willing to stay for 3-hour repeat troponin. 11/30/20 18:09 Spoke with patient again who notes that her pain has resolved and she is not willing to stay in the hospital for further work-up. She is willing to wait for the repeat troponin at 1845. 11/30/20 19:09 Patient care signed out to Dr. Abbasi to follow-up repeat troponin. I had a long discussion with patient again recommending that she stay in the hospital for chest pain observation admission but patient declines. She is willing to follow-up with a gantry crane operator. She is of sound mind to make this decision. She does agree to return to the hospital if chest pain recurs or if she develops any shortness of breath. Departure - Departure Disposition: Home, Self-Care 01 Condition: Good Clinical Impression: Chest pain Qualifiers: Chest pain type: unspecified Qualified Code(s): R07.9 - Chest pain, unspecified - Discharge Information Instructions: Nonspecific Chest Pain, Adult Referrals: Sim Whitlock MD [Primary Care Provider] - Forms: ED Department Discharge Additional Instructions: Your cardiac enzymes were negative. However I still think you should follow-up with a gantry crane operator. If you develop chest pain or difficulty breathing then you should return to the hospital for reassessment. [facility] [address] [place] [id number] The following information is given to patients seen in the emergency department who are being discharged to home. This information is to outline your options for follow-up care. We provide all patients seen in our emergency department with a follow-up referral. The need for follow-up, as well as the timing and circumstances, are variable depending upon the specifics of your emergency department visit. If you don't have a primary care physician on staff, we will provide you with a referral. We always advise you to contact your personal physician following an emergency department visit to inform them of the circumstance of the visit and for follow-up with them and/or the need for any referrals to a consulting specialist. The emergency department will also refer you to a specialist when appropriate. This referral assures that you have the opportunity for follow-up care with a specialist. All of these measure are taken in an effort to provide you with optimal care, which includes your follow-up. Under all circumstances we always encourage you to contact your private physician who remains a resource for coordinating your care. When calling for follow-up care, please make the office aware that this follow-up is from your recent emergency room visit. If for any reason you are refused follow-up, please contact the [facility] Emergency Department at and asked to speak to the emergency department charge nurse. Please follow up with your primary care physician. If you do not have a primary care physician, see below: [facility] [address] [place] [id number] [address] [id number] [facility] [address] [place] [id number] Sepsis Event Note (ED) - Evaluation Sepsis Screening Result: No Definite Risk <Didier Abbasi - Last Filed: 11/30/20 19:46> Course - Vital Signs Last Recorded V/S: Last Vital Signs Temp 97.2 F 11/30/20 15:28 Pulse 77 11/30/20 17:37 Resp 18 11/30/20 17:37 BP 138/57 L 05/31/21 17:37 Pulse Ox 93 L 11/30/20 17:37 - Orders/Labs/Meds Orders: Active Orders 24 hr Category Date Time Status Cardiac Monitoring [RC] . DIRECTED Care 11/30/20 15:39 Active EKG Documentation Completion [RC] STAT Care 11/30/20 15:39 Active Pulse Oximetry [RC] ASDIRECTED Care 11/30/20 15:39 Active Sodium Chloride 0.9% [Saline Flush] Med 11/30/20 15:39 Active 10 ml FLUSH ASDIRECTED PRN Sodium Chloride 0.9% [Saline Flush] Med 11/30/20 15:39 Active 2.5 ml FLUSH ASDIRECTED PRN Saline Lock Insert [OM.PC] Stat Oth 11/30/20 15:39 Ordered Medication Orders Sodium Chloride (Sodium Chloride 0.9% 10 Ml Syringe) 10 ml FLUSH ASDIRECTED PRN PRN Reason: Keep Vein Open Last Admin: 11/30/20 15:56 Dose: 10 ml Documented by: [id number] Sodium Chloride (Sodium Chloride 0.9% 2.5 Ml Syringe) 2.5 ml FLUSH ASDIRECTED PRN PRN Reason: Keep Vein Open Last Admin: 11/30/20 15:56 Dose: 2.5 ml Documented by: [email or web address] Labs: Laboratory Tests 11/30/20 11/30/20 11/30/20 Range/Units 15:41 15:41 18:46 WBC 6.50 (4.0-11.0) K/uL RBC 4.13 L (4.30-5.90) M/uL Hgb 12.5 (12.0-16.0) g/dL Hct 38.3 (36.0-46.0) % MCV 92.7 (80.0-98.0) fL MCH 30.3 (27.0-32.0) pg MCHC 32.6 (31.0-37.0) g/dL RDW Std Deviation 44.2 (28.0-62.0) fl RDW Coeff of Arianne 13 (11.0-15.0) % Plt Count 222 (150-400) K/uL MPV 10.30 (7.40-12.00) fL Neut % (Auto) 61.7 (48.0-80.0) % Lymph % (Auto) 28.9 (16.0-40.0) % [place] % (Auto) 7.7 (0.0-15.0) % Eos % (Auto) 1.4 (0.0-7.0) % Baso % (Auto) 0.3 (0.0-1.5) % Neut # (Auto) 4.0 (1.4-5.7) K/uL Lymph # (Auto) 1.9 (0.6-2.4) K/uL [place] # (Auto) 0.5 (0.0-0.8) K/uL Eos # (Auto) 0.1 (0.0-0.7) K/uL Baso # (Auto) 0.0 (0.0-0.1) K/uL Nucleated RBC % 0.0 /100WBC Nucleated RBCs # 0 K/uL Sodium 138 (136-145) mmol/L Potassium 4.0 (3.5-5.1) mmol/L Chloride 101 (98-107) mmol/L Carbon Dioxide 25.0 (21.0-32.0) mmol/L BUN 15 (7.0-18.0) mg/dL Creatinine 0.8 (0.6-1.0) mg/dL Est Cr Clr Drug Dosing 54.13 mL/min Estimated GFR (MDRD) > 60.0 ml/min Glucose 101 (74-106) mg/dL Calcium 9.4 (8.5-10.1) mg/dL Magnesium 2.3 (1.8-2.4) mg/dL Total Bilirubin 0.6 (0.2-1.0) mg/dL AST 27 (15-37) IU/L ALT 31 (14-63) IU/L Alkaline Phosphatase 64 (46-116) U/L Troponin I < 0.050 < 0.050 (0.000-0.056) ng/mL Total Protein 6.9 (6.4-8.2) g/dL Albumin 3.5 (3.4-5.0) g/dL Globulin 3.4 (2.6-4.0) g/dL Albumin/Globulin Ratio 1.0 (0.9-1.6) Meds: Medications Generic Name Dose Route Start Last Admin Trade Name Freq PRN Reason Stop Dose Admin Sodium Chloride 10 ml 11/30/20 15:39 11/30/20 15:56 Sodium Chloride 0.9% 10 Ml Syringe FLUSH 10 ml ASDIRECTED PRN Administration Keep Vein Open Sodium Chloride 2.5 ml 11/30/20 15:39 11/30/20 15:56 Sodium Chloride 0.9% 2.5 Ml Syringe FLUSH 2.5 ml ASDIRECTED PRN Administration Keep Vein Open Discontinued Medications Generic Name Dose Route Start Last Admin Trade Name Freq PRN Reason Stop Dose Admin Aspirin 324 mg 11/30/20 15:39 11/30/20 15:55 Aspirin 81 Mg Tab.Chew PO 11/30/20 15:40 324 mg ONETIME ONE Administration - Re-Assessments/Exams Free Text/Narrative Re-Assessment/Exam: 11/30/20 19:45 Patient was signed out to me from previous attending pending a troponin. Patient in was offer admission by previous attending and again he refused I also spoke to the patient about being admitted she has a family bedside and they are okay will take the patient home she has no chest pain will follow up with her primary care physician. Departure - Departure Time of Disposition: 19:46 - Discharge Information *PRESCRIPTION DRUG MONITORING PROGRAM REVIEWED*: Not Applicable *COPY OF PRESCRIPTION DRUG MONITORING REPORT IN PATIENT CELSO: Not Applicable Sepsis Event Note (ED) - Focused Exam Vital Signs: Vital Signs Temp Pulse Resp BP Pulse Ox 11/30/20 17:37 77 18 138/57 L 93 L 11/30/20 16:19 69 18 116/51 L 99 11/30/20 15:28 97.2 F 79 17 129/71 97
--- NOTE | 2020-11-30 16:15 | CR ---
INDICATION: Chest pain. TECHNIQUE: Chest 1 view. COMPARISON: 08/29/2019. FINDINGS: Cardiovascular and mediastinum: Heart size and vasculature are normal in caliber and appearance. Mediastinum is within normal limits. Lungs and pleural space: Lungs are clear. No sign of infiltrate or mass. No sign of pleural effusion. No pneumothorax. Bones and soft tissues: No significant findings. IMPRESSION: 1. Lungs are hyperinflated. 2. There is no acute airspace disease. Dictated by Sim Gonzalez MD @ 11/30/2020 4:13:[address] Sim Gonzalez @ Nov 30 2020 4:13PM
[2020-11-30 16:25] LABS: BLOOD UREA NITROGEN,BUN 15 mg/dL (7.0-18.0); CHLORIDE,CL 101 mmol/L (98-107); GLUCOSE RANDOM 101 mg/dL (74-106); SODIUM,NA 138 mmol/L (136-145)
[2020-11-30 17:37] VITALS: BP 138/57; PULSE 77
== END 2020-11-30 22:51 | disposition home or self-care (01) ==
LOC: MW.ED 15:23
DX: R07.89 Other chest pain (principal); Z79.82 Long term (current) use of aspirin; Z88.1 Allergy status to other antibiotic agents
CPT/HCPCS: 36415; 71045; 80053; 83735; 84484; 85025; 93005; 99285; A9270; 93010; 99284

== ENCOUNTER 2023-01-27 16:42 | Emergency (ER) | payer MEDICARE, OTHER ==
[2023-01-27] MEDS ORDERED: Sodium Chloride 0.9% 2.5 ML Syringe FLUSH PRN (18:18)
[2023-01-27] MEDS ORDERED: Sodium Chloride 0.9% 10 ML Syringe FLUSH PRN (18:18)
[2023-01-27] MEDS ORDERED: Ondansetron 4 MG/2 ML SDV IVPUSH ONE (18:18)
[2023-01-27] MEDS ORDERED: fentaNYL 50 MCG/ML SDV IVPUSH ONE (18:18)
[2023-01-27] MEDS ORDERED: Sodium Chloride 0.9% 1,000 ML IV ONE (18:20)
[2023-01-27 18:26] LABS: APPEARANCE,URINE CLEAR; BILIRUBIN,URINE NEGATIVE (NEGATIVE); COLOR,URINE YELLOW; GLUCOSE,URINE NEGATIVE (NEGATIVE); KETONES,URINE 40 mg/dL (NEGATIVE); LEUKOCYTE ESTERASE,URINE NEGATIVE (NEGATIVE); NITRITE,URINE NEGATIVE (NEGATIVE); OCCULT BLOOD,URINE NEGATIVE (NEGATIVE); PH,URINE 5.5 (5.0-8.0); PROTEIN,URINE NEGATIVE (NEGATIVE); UROBILINOGEN,URINE 0.2 EU/dL (<2.0)
[2023-01-27 19:20] LABS: BASOPHILS PERCENT AUTO 0.2 % (0.0-1.5); EOSINOPHILS PERCENT AUTO 0.5 % (0.0-7.0); HEMATOCRIT 36.9 % (36.0-46.0); HEMOGLOBIN 11.8 g/dL (12.0-16.0); LYMPHOCYTES ABSOLUTE AUTO 1.2 K/uL (0.6-2.4); LYMPHOCYTES PERCENT AUTO 20.9 % (16.0-40.0); MEAN CORPUSCULAR HEMOGLOBIN 29.7 pg (27.0-32.0); MEAN CORPUSCULAR VOLUME 92.9 fL (80.0-98.0); MONOCYTES ABSOLUTE AUTO 0.3 K/uL (0.0-0.8); MONOCYTES PERCENT AUTO 5.5 % (0.0-15.0); NEUTROPHILS ABSOLUTE AUTO 4.3 K/uL (1.4-5.7); NEUTROPHILS PERCENT AUTO 72.9 % (48.0-80.0); NRBC ABSOLUTE 0 K/uL; PLATELET COUNT,PLT 179 K/uL (150-400); RED BLOOD CELL COUNT 3.97 M/uL (4.30-5.90); WHITE BLOOD CELL COUNT,WBC 5.83 K/uL (4.0-11.0)
[2023-01-27] MEDS ORDERED: Iopamidol 755 MG/ML 500 ML Multipack Bottle IVPUSH ONE (19:29)
[2023-01-27 19:43] LABS: A/G RATIO 1.1 (0.9-1.6); ALBUMIN 3.5 g/dL (3.4-5.0); BILIRUBIN TOTAL 0.9 mg/dL (0.2-1.0); CALCIUM 8.8 mg/dL (8.5-10.1); CARBON DIOXIDE,CO2 22.4 mmol/L (21.0-32.0); CREATININE 0.7 mg/dL (0.6-1.0); EST CRCL DRUG DOSING (CG) 56.65 mL/min; POTASSIUM,K 4.6 mmol/L (3.5-5.1); PROTEIN TOTAL,TP 6.8 g/dL (6.4-8.2)
[2023-01-27 22:44] VITALS: BP 100/51; PULSE 74
== END 2023-01-27 22:44 | disposition home or self-care (01) ==
LOC: MW.ED 16:42
DX: R10.32 Left lower quadrant pain (principal); R10.84 Generalized abdominal pain; Z88.1 Allergy status to other antibiotic agents; Z79.899 Other long term (current) drug therapy; Z90.49 Acquired absence of other specified parts of digestive tract; Z90.710 Acquired absence of both cervix and uterus
CPT/HCPCS: 36415; 74177; 80053; 81003; 83690; 85025; 96360; 99284; J3490; J7030; Q9967

== ENCOUNTER 2023-07-12 12:19 | Emergency (ER) | payer MEDICARE, OTHER ==
[2023-07-12 12:31] VITALS: BP 114/62
[2023-07-12 14:29] LABS: CORONAVIRUS COVID-19 NAA NEGATIVE (NEGATIVE); INFLUENZA A NAA POSITIVE (NEGATIVE); INFLUENZA B NAA NEGATIVE (NEGATIVE); RESPIRATORY SYNCYTIAL VIR NAA NEGATIVE (NEGATIVE)
[2023-07-12 17:07] VITALS: PULSE 91
== END 2023-07-12 17:07 | disposition home or self-care (01) ==
LOC: MW.ED 12:19
DX: J11.1 Influenza due to unidentified influenza virus with other respiratory manifestations (principal); Z88.1 Allergy status to other antibiotic agents; Z79.899 Other long term (current) drug therapy; Z79.82 Long term (current) use of aspirin; Z90.49 Acquired absence of other specified parts of digestive tract; Z90.710 Acquired absence of both cervix and uterus; Z20.822 Contact with and (suspected) exposure to COVID-19
CPT/HCPCS: 0241U; 71046; 99283

== ENCOUNTER 2023-08-19 20:27 | Emergency (ER) | payer MEDICARE, OTHER ==
[2023-08-19 21:03] LABS: BASOPHILS ABSOLUTE AUTO 0.03 K/uL (0.00-0.20); BASOPHILS PERCENT AUTO 0.4 % (0.0-1.0); EOSINOPHILS ABSOLUTE AUTO 0.02 K/uL (0.00-0.45); EOSINOPHILS PERCENT AUTO 0.3 % (0.0-6.0); HEMATOCRIT 39.3 % (37.0-47.0); HEMOGLOBIN 13.1 g/dL (12.0-16.0); IMMATURE GRAN ABSOLUTE AUTO 0.01 K/uL (0.00-0.05); IMMATURE GRAN PERCENT AUTO 0.1 % (0.0-0.4); LYMPHOCYTES ABSOLUTE AUTO 1.38 K/uL (1.00-4.80); LYMPHOCYTES PERCENT AUTO 19.1 % (24.0-44.0); MEAN CORPUSCULAR HEMOGLOBIN 30.5 pg (28.0-32.0); MEAN CORPUSCULAR HGB CONC 33.3 g/dL (32.0-36.0); MEAN CORPUSCULAR VOLUME 91.6 fL (83.0-99.0); MEAN PLATELET VOLUME 10.2 fL (9.4-12.3); MONOCYTES ABSOLUTE AUTO 0.47 K/uL (0.00-0.80); MONOCYTES PERCENT AUTO 6.5 % (0.0-8.0); NEUTROPHILS ABSOLUTE AUTO 5.33 K/uL (1.80-7.70); NEUTROPHILS PERCENT AUTO 73.6 % (41.0-71.0); PLATELET COUNT,PLT 216 K/uL (150-400); RED BLOOD CELL COUNT 4.29 M/uL (4.10-5.30); WHITE BLOOD CELL COUNT,WBC 7.24 K/uL (3.9-11.3)
[2023-08-19 21:35] LABS: LACTIC ACID 1.3 mmol/L (0.4-2.0)
[2023-08-19 21:42] LABS: BILIRUBIN TOTAL 0.9 mg/dL (0.2-1.0); CALCIUM 9.7 mg/dL (8.5-10.1); CARBON DIOXIDE,CO2 22.3 mmol/L (21.0-32.0); CREATININE 0.8 mg/dL (0.6-1.0); EST CRCL DRUG DOSING (CG) 50.68 mL/min; POTASSIUM,K 4.4 mmol/L (3.5-5.1); PROTEIN TOTAL,TP 7.9 g/dL (6.4-8.2)
[2023-08-19] MEDS: Iopamidol 755 MG/ML 500 ML Multipack Bottle IVPUSH ONE (22:55)
[2023-08-19 23:00] LABS: APPEARANCE,URINE CLEAR; BILIRUBIN,URINE NEGATIVE (NEGATIVE); COLOR,URINE YELLOW; GLUCOSE,URINE NEGATIVE (NEGATIVE); KETONES,URINE 15 mg/dL (NEGATIVE); LEUKOCYTE ESTERASE,URINE NEGATIVE (NEGATIVE); NITRITE,URINE NEGATIVE (NEGATIVE); OCCULT BLOOD,URINE NEGATIVE (NEGATIVE); PH,URINE 5.5 (5.0-8.0); PROTEIN,URINE NEGATIVE (NEGATIVE); UROBILINOGEN,URINE 0.2 EU/dL (<2.0)
[2023-08-20] MEDS: Aluminum Hydroxide/Magnesium Hydroxide/Simethicone XS Susp 30 ML Cup PO ONE (00:18)
[2023-08-20] MEDS: Lidocaine 2% Viscous Solution 15 ML UD PO ONE (00:18)
[2023-08-20 00:37] VITALS: BP 120/63; PULSE 83
== END 2023-08-20 00:35 | disposition home or self-care (01) ==
LOC: MW.ED 20:27
DX: R10.9 Unspecified abdominal pain (principal); Z88.1 Allergy status to other antibiotic agents
CPT/HCPCS: 36415; 74177; 80053; 81003; 83605; 83690; 85025; 99284; A9270; Q9967

== ENCOUNTER 2024-08-10 09:27 | Emergency (ER) | payer MEDICARE, OTHER ==
[2024-08-10 11:13] LABS: BASOPHILS ABSOLUTE AUTO 0.02 K/uL (0.00-0.20); BASOPHILS PERCENT AUTO 0.4 % (0.0-1.0); EOSINOPHILS ABSOLUTE AUTO 0.04 K/uL (0.00-0.45); EOSINOPHILS PERCENT AUTO 0.7 % (0.0-6.0); HEMATOCRIT 39.9 % (37.0-47.0); HEMOGLOBIN 13.3 g/dL (12.0-16.0); IMMATURE GRAN ABSOLUTE AUTO 0.01 K/uL (0.00-0.05); IMMATURE GRAN PERCENT AUTO 0.2 % (0.0-0.4); LYMPHOCYTES ABSOLUTE AUTO 0.92 K/uL (1.00-4.80); LYMPHOCYTES PERCENT AUTO 16.8 % (24.0-44.0); MEAN CORPUSCULAR HEMOGLOBIN 30.1 pg (28.0-32.0); MEAN CORPUSCULAR HGB CONC 33.3 g/dL (32.0-36.0); MEAN CORPUSCULAR VOLUME 90.3 fL (83.0-99.0); MEAN PLATELET VOLUME 10.6 fL (9.4-12.3); MONOCYTES ABSOLUTE AUTO 0.33 K/uL (0.00-0.80); NEUTROPHILS ABSOLUTE AUTO 4.15 K/uL (1.80-7.70); NEUTROPHILS PERCENT AUTO 75.9 % (41.0-71.0); PLATELET COUNT,PLT 224 K/uL (150-400); RED BLOOD CELL COUNT 4.42 M/uL (4.10-5.30); WHITE BLOOD CELL COUNT,WBC 5.47 K/uL (3.9-11.3)
[2024-08-10 11:32] LABS: A/G RATIO 1.1 (0.9-1.6); ALBUMIN 3.5 g/dL (3.4-5.0); BILIRUBIN TOTAL 0.6 mg/dL (0.2-1.0); CALCIUM 9.2 mg/dL (8.5-10.1); CARBON DIOXIDE,CO2 27.3 mmol/L (21.0-32.0); CREATININE 0.9 mg/dL (0.6-1.0); EST CRCL DRUG DOSING (CG) 46.64 mL/min; MAGNESIUM 2.3 mg/dL (1.8-2.4); POTASSIUM,K 4.3 mmol/L (3.5-5.1); PROTEIN TOTAL,TP 6.7 g/dL (6.4-8.2)
[2024-08-10 11:35] LABS: APPEARANCE,URINE CLEAR; BILIRUBIN,URINE NEGATIVE (NEGATIVE); COLOR,URINE YELLOW; GLUCOSE,URINE NEGATIVE (NEGATIVE); KETONES,URINE SMALL mg/dL (NEGATIVE); LEUKOCYTE ESTERASE,URINE NEGATIVE (NEGATIVE); NITRITE,URINE NEGATIVE (NEGATIVE); OCCULT BLOOD,URINE NEGATIVE (NEGATIVE); PH,URINE 7.5 (5.0-8.0); PROTEIN,URINE NEGATIVE (NEGATIVE); UROBILINOGEN,URINE <2.0 EU/dL (<2.0)
[2024-08-10 11:37] LABS: TSH ULTRASENSITIVE 3.16 uIU/mL (0.36-3.74)
[2024-08-10 13:02] VITALS: BP 110/63; PULSE 66
== END 2024-08-10 13:02 | disposition home or self-care (01) ==
LOC: MW.ED 09:27
DX: R42 Dizziness and giddiness (principal); Z79.899 Other long term (current) drug therapy; Z75.8 Other problems related to medical facilities and other health care; Z90.710 Acquired absence of both cervix and uterus; Z88.1 Allergy status to other antibiotic agents
CPT/HCPCS: 36415; 71046; 71046-26; 80053; 81003; 83690; 83735; 84443; 84484; 85025; 87428-QW; 93005; 99284

== ENCOUNTER 2024-08-15 04:35 | Emergency (ER) | payer MEDICARE, OTHER ==
[2024-08-15 04:56] LABS: BASOPHILS ABSOLUTE AUTO 0.03 K/uL (0.00-0.20); BASOPHILS PERCENT AUTO 0.5 % (0.0-1.0); EOSINOPHILS ABSOLUTE AUTO 0.13 K/uL (0.00-0.45); HEMATOCRIT 39.8 % (37.0-47.0); HEMOGLOBIN 13.1 g/dL (12.0-16.0); IMMATURE GRAN ABSOLUTE AUTO 0.03 K/uL (0.00-0.05); IMMATURE GRAN PERCENT AUTO 0.5 % (0.0-0.4); LYMPHOCYTES PERCENT AUTO 29.6 % (24.0-44.0); MEAN CORPUSCULAR HEMOGLOBIN 29.6 pg (28.0-32.0); MEAN CORPUSCULAR HGB CONC 32.9 g/dL (32.0-36.0); MEAN PLATELET VOLUME 10.4 fL (9.4-12.3); MONOCYTES ABSOLUTE AUTO 0.36 K/uL (0.00-0.80); MONOCYTES PERCENT AUTO 5.6 % (0.0-8.0); NEUTROPHILS ABSOLUTE AUTO 3.96 K/uL (1.80-7.70); NEUTROPHILS PERCENT AUTO 61.8 % (41.0-71.0); PLATELET COUNT,PLT 203 K/uL (150-400); RED BLOOD CELL COUNT 4.42 M/uL (4.10-5.30); WHITE BLOOD CELL COUNT,WBC 6.41 K/uL (3.9-11.3)
[2024-08-15] MEDS: Sodium Chloride 0.9% 1,000 ML IV ONE (04:59)
[2024-08-15 05:17] LABS: A/G RATIO 1.1 (0.9-1.6); ALANINE AMINOTRANSFERASE,ALT 30 IU/L (14-63); ALBUMIN 3.7 g/dL (3.4-5.0); ALKALINE PHOSPHATASE 64 U/L (46-116); ASPARTATE AMNIOTRANSFERASE,AST 20 IU/L (15-37); BILIRUBIN TOTAL 0.6 mg/dL (0.2-1.0); BLOOD UREA NITROGEN,BUN 20 mg/dL (7.0-18.0); CALCIUM 9.7 mg/dL (8.5-10.1); CARBON DIOXIDE,CO2 29.8 mmol/L (21.0-32.0); CHLORIDE,CL 105 mmol/L (98-107); GLUCOSE RANDOM 90 mg/dL (74-106); LIPASE 84 U/L (16-77); POTASSIUM,K 3.9 mmol/L (3.5-5.1); PROTEIN TOTAL,TP 7.1 g/dL (6.4-8.2); SODIUM,NA 145 mmol/L (136-145)
[2024-08-15 05:18] LABS: ESTIMATED GFR 59 mL/min (>60)
[2024-08-15 05:20] LABS: APPEARANCE,URINE CLEAR; BILIRUBIN,URINE NEGATIVE (NEGATIVE); COLOR,URINE YELLOW; GLUCOSE,URINE NEGATIVE (NEGATIVE); KETONES,URINE 15 mg/dL (NEGATIVE); LEUKOCYTE ESTERASE,URINE NEGATIVE (NEGATIVE); NITRITE,URINE NEGATIVE (NEGATIVE); OCCULT BLOOD,URINE NEGATIVE (NEGATIVE); PROTEIN,URINE NEGATIVE (NEGATIVE); UROBILINOGEN,URINE 0.2 EU/dL (<2.0)
[2024-08-15] MEDS: Iopamidol 755 MG/ML 500 ML Multipack Bottle IVPUSH STA (07:43)
[2024-08-15] MEDS: Acetaminophen 500 MG Tab PO ONE (08:31)
[2024-08-15 08:37] VITALS: BP 123/65; PULSE 97
== END 2024-08-15 08:38 | disposition home or self-care (01) ==
LOC: MW.ED 04:35
DX: K29.00 Acute gastritis without bleeding (principal); K59.00 Constipation, unspecified; R10.2 Pelvic and perineal pain; E71.32 Disorders of ketone metabolism; E86.0 Dehydration; Z88.1 Allergy status to other antibiotic agents; Z79.82 Long term (current) use of aspirin; Z79.899 Other long term (current) drug therapy; Z90.49 Acquired absence of other specified parts of digestive tract; Z90.710 Acquired absence of both cervix and uterus; Z75.8 Other problems related to medical facilities and other health care
CPT/HCPCS: 36415; 74177; 80048; 80076; 81003; 83690; 85025; 96360; 99284; J7030; Q9967